=== PATIENT | male | born 1955 | race Two or more races ===

== ENCOUNTER 2021-06-16 06:26 | Outpatient (REF) | payer OTHER, SELFPAY ==
--- NOTE | 2021-06-16 06:43 | ECG_ITS ---
Test Reason : PRE OP Blood Pressure : / mmHG Vent. Rate : 057 BPM Atrial Rate : 057 BPM P-R Int : 158 ms QRS Dur : 070 ms QT Int : 434 ms P-R-T Axes : 076 043 046 degrees QTc Int : 422 ms Sinus bradycardia Otherwise normal ECG No previous ECGs available Referred By: Matthew Dang Electronically Signed By:DEMOND REGALADO
[2021-06-16 06:58] LABS: MANUAL DIFF FLAG NO
[2021-06-16 07:00] LABS: Basophils Absolute Auto 0.1 X10*3/uL (0.0-0.2); Basophils Percent Auto 0.9 % (0-2); Eosinophils Absolute Auto 1.4 X10*3/uL (0.0-0.4); Eosinophils Percent Auto 17.5 % (0-4); Hematocrit 40.6 % (42-52); Hemoglobin 13.3 g/dl (14.0-18.0); Imm Gran Abs Auto 0.03 X10*3/uL (0.00-0.03); Imm Gran Pct Auto 0.4 % (0.0-0.4); Lymphocytes Absolute Auto 2.1 X10*3/uL (1.2-4.9); Lymphocytes Percent Auto 27.3 % (20-40); Mean Corpuscular HGB Conc 32.8 g/dl (31.0-36.0); Mean Corpuscular Volume 94.6 fL (80-98); Mean Platelet Volume 8.9 fL (9.4-12.4); Monocytes Absolute Auto 0.5 X10*3/uL (0.1-1.2); Monocytes Percent Auto 6.1 % (2-11); Neutrophils Absolute Auto 3.8 X10*3/uL (2.0-8.3); Neutrophils Percent Auto 47.8 % (45-73); Platelet Count 231 X10*3/uL (160-400); Red Blood Count 4.29 X10*6/uL (4.60-5.80); Red Cell Distribution Width 14.8 % (11.0-16.0); White Blood Count 7.9 X10*3/uL (4.8-10.8)
[2021-06-16 07:30] LABS: Alanine Aminotransferase 13 U/L (0-40); Albumin Level 4.3 g/dL (3.5-5.0); Alkaline Phosphatase 89 U/L (39-117); Anion Gap 9 (12-20); Aspartate Amino Transferase 15 U/L (5-37); Bilirubin Total 0.5 mg/dL (0.0-1.0); Blood Urea Nitrogen 20 mg/dL (9-16); Calcium 9.7 mg/dL (8.4-10.2); Carbon Dioxide 30 mmol/L (22-29); Chloride 107 mmol/L (96-108); Cholesterol 107 mg/dL; Estimated Glomerular Filt Rate > 60; Glucose Random 136 mg/dL (60-115); HDL Cholesterol 33 mg/dL; LDL Cholesterol Calculated 65 mg/dl; Potassium 4.8 mmol/L (3.3-5.1); Sodium 141 mmol/L (135-145); Total Protein 6.8 g/dL (6.5-8.0); Triglycerides 49 mg/dL
[2021-06-16 07:35] LABS: Creatinine Urine 139.19 mg/dL; Microalbum/Creatinine Ratio Ur 4.3 ug/mg cr
[2021-06-16 07:47] LABS: Free T4 (Free Thyroxine) 0.89 ng/dL (0.71-1.85); Prostate Specific Antigen Scr 6.26 ng/mL (<0.05-4.0); Thyroid Stimulating Hormone 2.62 uIU/mL (0.32-4.0)
[2021-06-16 07:57] LABS: Folate 6.5 ng/mL (> or = 4.0); Vitamin B12 246 pg/mL (200-900)
== END 2021-06-16 06:27 | disposition home or self-care (01) ==
LOC: HO.LAB 06:26
PROVIDERS: PCP Internal Medicine; Visit Provider Internal Medicine
DX: Z01.818 Encounter for other preprocedural examination (principal); Z12.5 Encounter for screening for malignant neoplasm of prostate; E78.00 Pure hypercholesterolemia, unspecified; H11.009 Unspecified pterygium of unspecified eye; E11.65 Type 2 diabetes mellitus with hyperglycemia
CPT/HCPCS: 36415; 80053; 80061; 82043; 82607; 82746; 84153; 84439; 84443; 85025; 93005

== ENCOUNTER 2021-06-23 06:27 | Outpatient (REF) | payer OTHER, SELFPAY ==
[2021-06-23 08:43] LABS: Prostate Specific Antigen 6.02 ng/mL (<0.05-4.0)
[2021-06-23 09:07] LABS: Creatinine Urine 131.42 mg/dL
== END 2021-06-23 06:28 | disposition home or self-care (01) ==
LOC: HO.LAB 06:27
PROVIDERS: PCP Internal Medicine; Visit Provider Internal Medicine
DX: Z12.5 Encounter for screening for malignant neoplasm of prostate (principal); R97.20 Elevated prostate specific antigen [PSA]; E11.65 Type 2 diabetes mellitus with hyperglycemia
CPT/HCPCS: 36415; 84153

== ENCOUNTER 2021-06-26 08:20 | Day surgery (SDC) | payer OTHER, SELFPAY ==
[2021-06-21 11:36] VITALS: BMI 27.3
--- NOTE | 2021-06-22 07:52 | MHC.SHP ---
Pre-Procedural Eval Section A Date of Service: 06/22/21 The patient is an INPATIENT: No Changes since office visit: No Cold of Flu in the past 2 weeks, No New Medical Problems, No Changes in Medication and No Patient answered all questions The History & Physical has been completed within 30 days and I have reviewed it.: Yes Section B Chief Complaint: Unspecified Pterygium of right Eye Allergies: Allergies Allergy/AdvReac Type Severity Reaction Status Date / Time atorvastatin Allergy Unknown Unknown Verified 06/21/21 11:20 pencillin Allergy Unknown Unknown Uncoded 06/21/21 11:20 Plan Diagnosis/Plan: Unchanged I have reviewed the history and physical and performed a pertinent physical examination on my patient. No changes have occurred unless specified.
--- NOTE | 2021-06-23 09:27 | HO.ANESPROP2 ---
Documented by User: Anne Marie Mehta NP 06/23/21 09:29 HPI - Anesthesia Eval Consult details Narrative: 65yo M for Right Pteryguim Resection with Graft PCP cleared PMFSH Active Problems Active Problems: All Active Problems (Updated 06/16/21 @ 08:26 by Matthew Dang MD) Dental abscess (Acute) Preop exam for internal medicine (Acute) Pterygium (Acute) Abnormal PSA (Acute) Hypercholesterolemia (Acute) COPD (chronic obstructive pulmonary disease) (Acute) Type 2 diabetes mellitus with hyperglycemia (Acute) Hypertension (Acute) Past Medical History Medical History COPD (chronic obstructive pulmonary disease) Hypercholesterolemia Hypertension Plantar fasciitis Type 2 diabetes mellitus with hyperglycemia Vitamin D deficiency Family History Family History Sister Breast cancer in situ Brother Alcohol abuse Father Alcohol abuse Surgical History Surgical History History of hand surgery Social History Social History Housing: House Alcohol intake: never Patient Tobacco Use Status: Former Tobacco user Quit Date: 2017 Tobacco use type: Cigarette Years Smoked: stopped 2017 e-Cigarette/Vaping Use: Never Used Second Hand Smoke Exposure: No Are you DNR?: No Advance Directives: No Advance Directives Information Provided: No Advance Directives on File: No service: No Current occupational status: employed Meds Allergies Allergy/AdvReac Type Severity Reaction Status Date / Time atorvastatin Allergy Unknown Unknown Verified 06/26/21 09:30 pencillin Allergy Unknown Unknown Uncoded 06/21/21 11:20 Exam Exam Date and Time: June 23, 2021 0927 Height,Weight and Vital Signs: Height 5 ft Weight 63.503 kg Pertinent Lab Results Pertinent Lab Results: Laboratory Tests 06/16/21 06/16/21 06:35 06:35 WBC 7.9 Hgb 13.3 L Hct 40.6 L Plt Count 231 Sodium 141 Potassium 4.8 Chloride 107 Carbon Dioxide 30 H BUN 20 H Creatinine 1.11 Narrative Narrative: EKG 06/2021 Vent. Rate : 057 BPM ? ? Atrial Rate : 057 BPM ?? P-R Int : 158 ms? QRS Dur : 070 ms ? ? QT Int : 434 ms ? ? ? P-R-T Axes : 076 043 046 degrees ?? QTc Int : 422 ms ? Sinus bradycardia Otherwise normal ECG No previous ECGs available Assessment and Plan Assessment Anesthesia Assessment: Chart Reviewed Documented by User: Kaley Pace MD 06/26/21 10:35 PMFSH Past Medical History Medical History COPD (chronic obstructive pulmonary disease) Hypercholesterolemia Hypertension Plantar fasciitis Type 2 diabetes mellitus with hyperglycemia Vitamin D deficiency Family History Family History Sister Breast cancer in situ Brother Alcohol abuse Father Alcohol abuse Surgical History Surgical History History of hand surgery History of Problems with Anesthesia: No Social History Social History Housing: House Alcohol intake: never Patient Tobacco Use Status: Former Tobacco user Quit Date: 2017 Tobacco use type: Cigarette Years Smoked: stopped 2017 e-Cigarette/Vaping Use: Never Used Second Hand Smoke Exposure: No Are you DNR?: No Advance Directives: No Advance Directives Information Provided: No Advance Directives on File: No service: No Current occupational status: employed Meds Allergies Allergy/AdvReac Type Severity Reaction Status Date / Time atorvastatin Allergy Unknown Unknown Verified 06/26/21 09:30 pencillin Allergy Unknown Unknown Uncoded 06/21/21 11:20 Exam Airway Mallampati Class: III TM Dist: >3cm Neck ROM: Full Heart: RRR Lungs: CTA Assessment and Plan Assessment Anesthesia Assessment: Anesthesia Plan Discussed Final Anesthetic Review History of Problems with Anesthesia: No NPO: Yes ASA Class: II Final Preanesthetic Review: Meds/Allgs Chart Reviewed, Consent Obtained/Reviewed and Anes Risks/Benef Reviewed Patient Risk: Low Procedure Risk: Low Anesthetic Plan Anesthetic Plan: MAC: Disposition: Standard PACU
[2021-06-26 09:31] VITALS: BP 135/60; PULSE 47; RESP 16; TEMP 36.3; O2SAT 98
[2021-06-26 09:42] LABS: Glucose, Whole Blood 116 mg/dL (60-115)
[2021-06-26] MEDS: Lactated Ringers 500 ML 50 ML IV (09:53)
--- NOTE | 2021-06-26 10:45 | HO.PNOPHT ---
Ophthalmology Procedure Procedure Date of Service: 06/26/21 Ophthalmology Viscoelastic: Not Applicable Ophthalmology Lenses: Not Applicable Procedure Notes: PREOPERATIVE DIAGNOSIS: Pterygium right eye POSTOPERATIVE DIAGNOSIS: Same PROCEDURE: Pterygium resection with conjunctival graft right eye SURGEON: Favian Pruitt M.D. ANESTHESIA: Topical/MAC ESTIMATED BLOOD LOSS: None COMPLICATIONS: None After obtaining informed consent, the patient was brought to the operating room suite and placed in supine position. After adequate sedation per Anesthesia, topical drops of Tetracaine were given to the right eye. The eye was then prepped and draped in the usual sterile fashion. Attention was directed to the right eye where the lid speculum was placed. Tetracaine was instilled topically, followed by subconjunctival injections of Lidocaine below the pterygium and below the superior conjunctiva where the graft was to be harvested from. Utilizing a combination of sharp and blunt dissection with Darren scissors, the pterygium was resected from the cornea, as well as the bulbar conjunctiva. A graft was then harvested from the superior site and placed in the conjunctival bed. It was sutured in place with 7-0 Vicryl sutures in a running fashion. Attention was directed superiorly where the graft harvest site was closed with additional 7-0 Vicryl interrupted sutures. Antibiotic ointment was instilled in the cul de sac. The lid speculum was removed. The patient tolerated the procedure well and will be followed.
[2021-06-26 12:01] VITALS: BP 136/70; PULSE 48; RESP 17; TEMP 36.3; O2SAT 99
[2021-06-26 12:15] VITALS: BP 150/62; PULSE 51; RESP 16; TEMP 36.3; O2SAT 99
== END 2021-06-26 13:08 | disposition home or self-care (01) ==
PROVIDERS: PCP Internal Medicine; Visit Provider Ophthalmology
PROC: (CPT 65420; principal; 2021-06-26 11:20)
DX: H11.001 Unspecified pterygium of right eye (principal); E11.9 Type 2 diabetes mellitus without complications; I10 Essential (primary) hypertension; J44.9 Chronic obstructive pulmonary disease, unspecified; Z79.82 Long term (current) use of aspirin; Z79.84 Long term (current) use of oral hypoglycemic drugs; Z79.899 Other long term (current) drug therapy
CPT/HCPCS: 65426; 82947; 88304; J2250; J3010

== ENCOUNTER 2022-03-06 14:53 | Outpatient (REF) | payer OTHER, SELFPAY ==
[2022-03-06 15:35] LABS: COVID-19 Test Negative (Negative)
== END 2022-03-06 14:54 | disposition home or self-care (01) ==
LOC: HO.LAB 14:53
PROVIDERS: Visit Provider Internal Medicine
DX: Z20.822 Contact with and (suspected) exposure to COVID-19 (principal)
CPT/HCPCS: 87635; C9803

== ENCOUNTER 2022-05-29 06:37 | Outpatient (REF) | payer MEDICARE, SELFPAY ==
[2022-05-29 06:53] LABS: MANUAL DIFF FLAG NO
[2022-05-29 07:28] LABS: Basophils Percent Auto 0.8 % (0-2); Eosinophils Absolute Auto 0.9 X10*3/uL (0.0-0.4); Eosinophils Percent Auto 16.4 % (0-4); Hematocrit 39.4 % (42.0-52.0); Hemoglobin 12.8 g/dl (14.0-18.0); Imm Gran Abs Auto 0.01 X10*3/uL (0.00-0.03); Imm Gran Pct Auto 0.2 % (0.0-0.4); Lymphocytes Absolute Auto 1.2 X10*3/uL (1.2-4.9); Lymphocytes Percent Auto 22.3 % (20-40); Mean Corpuscular HGB Conc 32.5 g/dl (31.0-36.0); Mean Corpuscular Hemoglobin 30.5 pg (27.0-33.0); Mean Platelet Volume 8.7 fL (9.4-12.4); Monocytes Absolute Auto 0.4 X10*3/uL (0.1-1.2); Monocytes Percent Auto 8.1 % (2-11); Neutrophils Absolute Auto 2.8 x10*3/uL (2.0-8.3); Neutrophils Percent Auto 52.2 % (45-73); Platelet Count 283 X10*3/uL (160-400); Red Blood Count 4.19 X10*6/uL (4.60-5.80); Red Cell Distribution Width 13.6 % (11.0-16.0); White Blood Count 5.3 X10*3/uL (4.8-10.8)
[2022-05-29 08:00] LABS: Estimated Average Glucose 166 mg/dL; Hemoglobin A1c % 7.4 %
[2022-05-29 08:04] LABS: Alanine Aminotransferase 19 U/L (0-40); Albumin Level 4.4 g/dL (3.5-5.0); Alkaline Phosphatase 86 U/L (39-117); Anion Gap 15 (12-20); Aspartate Amino Transferase 16 U/L (5-37); Bilirubin Total 0.3 mg/dL (0.0-1.0); Blood Urea Nitrogen 16 mg/dL (9-16); Calcium 9.9 mg/dL (8.4-10.2); Carbon Dioxide 28 mmol/L (22-29); Chloride 104 mmol/L (96-108); Cholesterol 131 mg/dL; Estimated Glomerular Filt Rate > 60; Glucose Random 145 mg/dL (60-115); HDL Cholesterol 39 mg/dL; LDL Cholesterol Calculated 78 mg/dl; Potassium 4.5 mmol/L (3.3-5.1); Sodium 142 mmol/L (135-145); Total Protein 6.9 g/dL (6.5-8.0); Triglycerides 73 mg/dL
[2022-05-29 08:05] LABS: Microalbum/Creatinine Ratio Ur 8.6 ug/mg cr
[2022-05-29 08:44] LABS: Free T4 (Free Thyroxine) 1.02 ng/dL (0.71-1.85); PSA,Total (Free>4and<10) < 0.05 ng/mL (0.00-4.00); Thyroid Stimulating Hormone 3.93 uIU/mL (0.32-4.0)
[2022-05-29 09:17] LABS: Folate 10.4 ng/mL (> or = 4.0); Vitamin B12 290 pg/mL (200-900)
== END 2022-05-29 06:38 | disposition home or self-care (01) ==
LOC: HO.LAB 06:37
PROVIDERS: PCP Internal Medicine; Visit Provider Internal Medicine
DX: E11.65 Type 2 diabetes mellitus with hyperglycemia (principal); I10 Essential (primary) hypertension; C61 Malignant neoplasm of prostate; E78.00 Pure hypercholesterolemia, unspecified
CPT/HCPCS: 36415; 80053; 80061; 82043; 82607; 82746; 83036; 84153; 84439; 84443; 85025

== ENCOUNTER 2022-06-28 12:09 | Outpatient (REF) | payer MEDICARE, SELFPAY ==
[2022-06-28 13:17] LABS: COVID-19 Test Positive (Negative); IDNOW Serial# 08D9AD1C
== END 2022-06-28 12:10 | disposition home or self-care (01) ==
LOC: HO.LAB 12:09
PROVIDERS: Visit Provider Internal Medicine
DX: Z20.822 Contact with and (suspected) exposure to COVID-19 (principal)
CPT/HCPCS: 87635; C9803

== ENCOUNTER 2022-08-23 08:01 | Outpatient (REF) | payer MEDICARE, SELFPAY ==
--- NOTE | 2022-08-23 08:07 | ECG_ITS ---
Test Reason : preproc exam Blood Pressure : / mmHG Vent. Rate : 057 BPM Atrial Rate : 057 BPM P-R Int : 152 ms QRS Dur : 068 ms QT Int : 436 ms P-R-T Axes : 076 042 049 degrees QTc Int : 424 ms Sinus bradycardia Otherwise normal ECG When compared with ECG of 16-JUN-2021 06:54, No significant change was found Referred By: Matthew Dang Electronically Signed By:KAT JAUREGUI MD
[2022-08-23 08:22] LABS: MANUAL DIFF FLAG NO
[2022-08-23 08:42] LABS: Basophils Percent Auto 0.6 % (0-2); Eosinophils Absolute Auto 0.7 X10*3/uL (0.0-0.4); Eosinophils Percent Auto 12.7 % (0-4); Hematocrit 38.1 % (42.0-52.0); Hemoglobin 12.4 g/dl (14.0-18.0); Immature Retic Fraction 11.8 % (2.3-13.4); Lymphocytes Absolute Auto 1.1 X10*3/uL (1.2-4.9); Mean Corpuscular HGB Conc 32.5 g/dl (31.0-36.0); Mean Corpuscular Hemoglobin 30.3 pg (27.0-33.0); Mean Corpuscular Volume 93.2 fL (80.0-98.0); Mean Platelet Volume 8.8 fL (9.4-12.4); Monocytes Absolute Auto 0.6 X10*3/uL (0.1-1.2); Monocytes Percent Auto 10.6 % (2-11); Neutrophils Percent Auto 56.1 % (45-73); Platelet Count 270 X10*3/uL (160-400); Red Blood Count 4.09 X10*6/uL (4.60-5.80); Red Cell Distribution Width 13.2 % (11.0-16.0); Retic HGB Equivalent 35.4 pg (30.0-35.0); Reticulocyte Percent 1.7 % (0.5-1.8); White Blood Count 5.3 X10*3/uL (4.8-10.8)
[2022-08-23 09:21] LABS: Creatinine Urine 52.42 mg/dL
[2022-08-23 09:28] LABS: Estimated Average Glucose 206 mg/dL; Hemoglobin A1c % 8.8 %
[2022-08-23 09:33] LABS: Alanine Aminotransferase 17 U/L (0-40); Albumin Level 4.3 g/dL (3.5-5.0); Alkaline Phosphatase 91 U/L (39-117); Anion Gap 14 (12-20); Aspartate Amino Transferase 14 U/L (5-37); Bilirubin Total 0.3 mg/dL (0.0-1.0); Blood Urea Nitrogen 17 mg/dL (9-16); Calcium 9.6 mg/dL (8.4-10.2); Carbon Dioxide 28 mmol/L (22-29); Chloride 102 mmol/L (96-108); Estimated Glomerular Filt Rate > 60; Ferritin 252 ng/mL (20-250); Glucose Random 189 mg/dL (60-115); Iron 84 mcg/dL (45-160); Percent Iron Saturation 34 % (15-50); Potassium 4.9 mmol/L (3.3-5.1); Sodium 139 mmol/L (135-145); Total Iron Binding Capacity 249 mcg/dL (228-428); Total Protein 6.9 g/dL (6.5-8.0); Unsaturated Iron Binding 165 ug/dL
[2022-08-23 09:42] LABS: Folate 10.8 ng/mL (> or = 4.0); Vitamin B12 369 pg/mL (200-900)
== END 2022-08-23 08:02 | disposition home or self-care (01) ==
LOC: HO.LAB 08:01
PROVIDERS: PCP Internal Medicine; Visit Provider Internal Medicine
DX: Z01.818 Encounter for other preprocedural examination (principal); E11.65 Type 2 diabetes mellitus with hyperglycemia
CPT/HCPCS: 36415; 80053; 82607; 82728; 82746; 83036; 83540; 85025; 85045; 93005

== ENCOUNTER 2022-09-03 07:04 | Day surgery (SDC) | payer MEDICARE, SELFPAY ==
[2022-08-24 10:38] VITALS: BMI 26.9
--- NOTE | 2022-08-28 13:13 | HO.ANESPROP2 ---
Documented by User: Anne Marie Mehta NP 08/28/22 13:14 HPI - Anesthesia Eval Consult details Narrative: 66yo M for Right Cataract Extraction IOL Insertion PCP cleared No previous cataract on record s/p pterygium 06/2021 with MAC: Fent 50, Midaz 2 PMFSH Active Problems Active Problems: All Active Problems (Updated 08/22/22 @ 14:48 by Matthew Dang MD) Cataract (Acute) Preop exam for internal medicine (Acute) COVID-19 virus infection (Acute) Rectal incontinence (Acute) Prostate cancer (Acute) Dental abscess (Acute) Preop exam for internal medicine (Acute) Abnormal PSA (Acute) Hypercholesterolemia (Acute) COPD (chronic obstructive pulmonary disease) (Acute) Type 2 diabetes mellitus with hyperglycemia (Acute) Hypertension (Acute) Past Medical History Medical History COPD (chronic obstructive pulmonary disease) Hypercholesterolemia Hypertension Plantar fasciitis Type 2 diabetes mellitus with hyperglycemia Vitamin D deficiency Family History Family History (Updated 08/22/22 @ 14:49 by Matthew Dang MD) Sister Breast cancer in situ Brother Alcohol abuse Prostate cancer CAD (coronary artery disease) Father Alcohol abuse Mother CAD (coronary artery disease) Surgical History Surgical History History of hand surgery Pterygium History of Problems with Anesthesia: No Social History Social History Housing: House Are you a primary assurance services manager health care to a significant other at home: No Do you presently have visiting nurse or other home services: No Alcohol intake: never Patient Tobacco Use Status: Former Tobacco user Quit Date: 2017 Tobacco use type: Cigarette Years Smoked: stopped 2017 e-Cigarette/Vaping Use: Never Used Second Hand Smoke Exposure: No Use of substances other than those prescribed or required for medical reasons: No Have you been hit, kicked, punched, or otherwise hurt by someone within the past year? If so, by whom?: No Are you DNR?: No Advance Directives: No Advance Directives Information Provided: Yes Advance Directives on File: No Recently lost weight without trying: No Nutrition Risks: No Nutritional Risk service: No Current occupational status: employed Cognitive needs: No Hearing needs: No Vision needs: Yes Meds Allergies Allergy/AdvReac Type Severity Reaction Status Date / Time atorvastatin Allergy Unknown Rash Verified 08/27/22 14:11 pencillin Allergy Unknown Rash Uncoded 08/24/22 10:38 Exam Exam Date and Time: August 28, 2022 1313 Height,Weight and Vital Signs: Height 5 ft Weight 62.596 kg Assessment and Plan Assessment Anesthesia Assessment: Chart Reviewed Final Anesthetic Review History of Problems with Anesthesia: No Documented by User: Paige Bonilla MD 09/03/22 09:54 [facility] Past Medical History Medical History COPD (chronic obstructive pulmonary disease) Hypercholesterolemia Hypertension Plantar fasciitis Type 2 diabetes mellitus with hyperglycemia Vitamin D deficiency Family History Family History (Updated 08/22/22 @ 14:49 by Matthew Dang MD) Sister Breast cancer in situ Brother Alcohol abuse Prostate cancer CAD (coronary artery disease) Father Alcohol abuse Mother CAD (coronary artery disease) Family history of problems with anesthesia: No Surgical History Surgical History History of hand surgery Pterygium Social History Social History Housing: House Are you a primary assurance services manager health care to a significant other at home: No Do you presently have visiting nurse or other home services: No Alcohol intake: never Patient Tobacco Use Status: Former Tobacco user Quit Date: 2017 Tobacco use type: Cigarette Years Smoked: stopped 2017 e-Cigarette/Vaping Use: Never Used Second Hand Smoke Exposure: No Use of substances other than those prescribed or required for medical reasons: No Have you been hit, kicked, punched, or otherwise hurt by someone within the past year? If so, by whom?: No Are you DNR?: No Advance Directives: No Advance Directives Information Provided: Yes Advance Directives on File: No Recently lost weight without trying: No Nutrition Risks: No Nutritional Risk service: No Current occupational status: employed Cognitive needs: No Hearing needs: No Vision needs: Yes Meds Allergies Allergy/AdvReac Type Severity Reaction Status Date / Time atorvastatin Allergy Unknown Rash Verified 08/27/22 14:11 pencillin Allergy Unknown Rash Uncoded 08/24/22 10:38 Exam Narrative Narrative: could not stick out tongue Airway Mallampati Class: II TM Dist: >3cm Neck ROM: Full Heart: rrr Lungs: cta bl Assessment and Plan Assessment Anesthesia Assessment: Anesthesia Plan Discussed Final Anesthetic Review Family History of Problems with Anesthesia: No NPO: No ASA Class: II Final Preanesthetic Review: No Changes in Pt Med Stat, Meds/Allgs Chart Reviewed and Consent Obtained/Reviewed Patient Risk: Intermediate Procedure Risk: Low Anesthetic Plan Anesthetic Plan: MAC: Disposition: Standard PACU
--- NOTE | 2022-08-29 08:25 | MHC.SHP ---
Pre-Procedural Eval Section A Date of Service: 08/29/22 The patient is an INPATIENT: No Changes since office visit: No Cold of Flu in the past 2 weeks, No New Medical Problems, No Changes in Medication and No Patient answered all questions The History & Physical has been completed within 30 days and I have reviewed it.: Yes Section B Chief Complaint: Age-related nuclear cataract, right eye Allergies: Allergies Allergy/AdvReac Type Severity Reaction Status Date / Time atorvastatin Allergy Unknown Rash Verified 08/27/22 14:11 pencillin Allergy Unknown Rash Uncoded 08/24/22 10:38 Plan Diagnosis/Plan: Unchanged I have reviewed the history and physical and performed a pertinent physical examination on my patient. No changes have occurred unless specified.
[2022-09-03 07:59] VITALS: BP 124/51; PULSE 66; RESP 18; TEMP 36.1; O2SAT 97
[2022-09-03 08:04] LABS: Glucose, Whole Blood 207 mg/dL (60-115)
[2022-09-03] MEDS: Lactated Ringers 500 ML 50 ML IV (08:05)
[2022-09-03] MEDS: Cyclopentolate 1 % Ophth Sol 2 ML DRPBTL 1 DROP EYE-RIGHT ×3 (08:06→08:08)
[2022-09-03] MEDS: Tetracaine HCl/PF 0.5% Oph Sol 4 ML DROPS 1 DROP EYE-RIGHT (08:06)
[2022-09-03] MEDS: Ketorolac Tromethamine 0.5% Op 5 ML DROPS 1 DROP EYE-RIGHT ×3 (08:06→08:08)
[2022-09-03] MEDS: Tropicamide 1 % Ophth Sol 3 ML BTL 1 DROP EYE-RIGHT ×3 (08:06→08:08)
[2022-09-03] MEDS: Phenylephrine HCL 2.5% Oph SoL 2 ML BOTTLE 1 DROP EYE-RIGHT ×3 (08:07→08:09)
--- NOTE | 2022-09-03 11:37 | HO.PNOPHT ---
Ophthalmology Procedure Procedure Date of Service: 09/03/22 Ophthalmology Viscoelastic: Mariluz Hobbst Dual Pack Pro Ophthalmology Lenses: TECOR[place]O [id number] (22) Procedure Notes: PREOPERATIVE DIAGNOSIS: Decreased visual acuity right eye secondary to cataract POSTOPERATIVE DIAGNOSIS: Same PROCEDURE: Right cataract extraction with intraocular lens insertion SURGEON: Favian Pruitt M.D. ANESTHESIA: Topical/MAC ESTIMATED BLOOD LOSS: None COMPLICATIONS: None After obtaining informed consent, the patient was brought to the operating room suite and placed in the supine position. After adequate sedation per anesthesia, topical drops of Tetracaine were given to the right eye. The eye was then prepped and draped in the usual sterile fashion. The operating room microscope was then positioned over the operative eye and a lid speculum placed. A paracentesis was created. Viscoelastic was then instilled into the anterior chamber. A three plane incision was then created temporally, utilizing a 2.85 mm keratome. Capsulotomy forceps were then utilized to create a circular tear capsulotomy. Hydrodissection and hydrodelineation were carried out until adequate mobilization of the nucleus occurred. Phacoemulsification was then utilized to remove the dense central nucleus followed by removal of the cortical material utilizing the automated aspiration irrigation unit. Viscoelastic was instilled into the posterior capsular bag followed by placement of a posterior chamber intraocular lens without difficulty. The residual Viscoelastic was then removed utilizing the automated IA machine. The wound was checked and found to be watertight. The patient tolerated the procedure well and the lid speculum was removed. Intracameral injection of Vigamox 0.1 mL followed by a subtenon injection of Kenalog-40 0.2 mL were administered. The patient will be seen in the a.m.
[2022-09-03 12:06] VITALS: BP 133/56; PULSE 61; RESP 16; TEMP 36.8; O2SAT 99
== END 2022-09-03 12:08 ==
LOC: HO.SSS 07:05
PROVIDERS: PCP Internal Medicine; Visit Provider Ophthalmology
PROC: (CPT 66985; principal; 2022-09-03 09:20)
DX: H25.11 Age-related nuclear cataract, right eye (principal); E11.9 Type 2 diabetes mellitus without complications; I10 Essential (primary) hypertension; J44.9 Chronic obstructive pulmonary disease, unspecified; Z79.84 Long term (current) use of oral hypoglycemic drugs; Z79.899 Other long term (current) drug therapy; Z88.0 Allergy status to penicillin; Z88.8 Allergy status to other drugs, medicaments and biological substances
CPT/HCPCS: 66984; 82947; J2250; J3300; J7999; V2632

== ENCOUNTER 2022-09-17 07:04 | Day surgery (SDC) | payer MEDICARE, SELFPAY ==
[2022-08-24 10:43] VITALS: BMI 26.9
--- NOTE | 2022-09-13 08:39 | MHC.SHP ---
Pre-Procedural Eval Section A Date of Service: 09/13/22 The patient is an INPATIENT: No Changes since office visit: No Cold of Flu in the past 2 weeks, No New Medical Problems, No Changes in Medication and No Patient answered all questions The History & Physical has been completed within 30 days and I have reviewed it.: Yes Section B Chief Complaint: Age-related nuclear cataract, left eye Allergies: Allergies Allergy/AdvReac Type Severity Reaction Status Date / Time atorvastatin Allergy Unknown Rash Verified 08/27/22 14:11 pencillin Allergy Unknown Rash Uncoded 08/24/22 10:38 Plan Diagnosis/Plan: Unchanged I have reviewed the history and physical and performed a pertinent physical examination on my patient. No changes have occurred unless specified.
--- NOTE | 2022-09-14 09:08 | HO.ANESPROP2 ---
Documented by User: Anne Marie Mehta NP 09/14/22 09:09 HPI - Anesthesia Eval Consult details Narrative: 66yo M for Left?Cataract Extraction IOL Insertion PCP cleared Right eye 09/03/22 with MAC: Midaz 1 PMFSH Active Problems Active Problems: All Active Problems (Updated 08/22/22 @ 14:48 by Matthew Dang MD) Cataract (Acute) Preop exam for internal medicine (Acute) COVID-19 virus infection (Acute) Rectal incontinence (Acute) Prostate cancer (Acute) Dental abscess (Acute) Preop exam for internal medicine (Acute) Abnormal PSA (Acute) Hypercholesterolemia (Acute) COPD (chronic obstructive pulmonary disease) (Acute) Type 2 diabetes mellitus with hyperglycemia (Acute) Hypertension (Acute) Past Medical History Medical History COPD (chronic obstructive pulmonary disease) Hypercholesterolemia Hypertension Plantar fasciitis Type 2 diabetes mellitus with hyperglycemia Vitamin D deficiency Family History Family History (Updated 08/22/22 @ 14:49 by Matthew Dang MD) Sister Breast cancer in situ Brother Alcohol abuse Prostate cancer CAD (coronary artery disease) Father Alcohol abuse Mother CAD (coronary artery disease) Family history of problems with anesthesia: No Surgical History Surgical History History of hand surgery Pterygium History of Problems with Anesthesia: No Social History Social History Housing: House Are you a primary respite care provider to a significant other at home: No Do you presently have visiting nurse or other home services: No Alcohol intake: never Patient Tobacco Use Status: Former Tobacco user Quit Date: 2017 Tobacco use type: Cigarette Years Smoked: stopped 2017 e-Cigarette/Vaping Use: Never Used Second Hand Smoke Exposure: No Use of substances other than those prescribed or required for medical reasons: No Have you been hit, kicked, punched, or otherwise hurt by someone within the past year? If so, by whom?: No Are you DNR?: No Advance Directives: No Advance Directives Information Provided: Yes Advance Directives on File: No Recently lost weight without trying: No Nutrition Risks: No Nutritional Risk service: No Current occupational status: employed Cognitive needs: No Hearing needs: No Vision needs: Yes Meds Allergies Allergy/AdvReac Type Severity Reaction Status Date / Time atorvastatin Allergy Unknown Rash Verified 08/27/22 14:11 pencillin Allergy Unknown Rash Uncoded 08/24/22 10:38 Exam Exam Date and Time: September 14, 2022 0908 Height,Weight and Vital Signs: Height 5 ft Weight 62.596 kg Assessment and Plan Assessment Anesthesia Assessment: Chart Reviewed Final Anesthetic Review Family History of Problems with Anesthesia: No History of Problems with Anesthesia: No Documented by User: Paige Bonilla MD 09/17/22 08:20 [facility] Past Medical History Medical History COPD (chronic obstructive pulmonary disease) Hypercholesterolemia Hypertension Plantar fasciitis Type 2 diabetes mellitus with hyperglycemia Vitamin D deficiency Family History Family History (Updated 08/22/22 @ 14:49 by Matthew Dang MD) Sister Breast cancer in situ Brother Alcohol abuse Prostate cancer CAD (coronary artery disease) Father Alcohol abuse Mother CAD (coronary artery disease) Surgical History Surgical History History of hand surgery Pterygium Social History Social History Housing: House Are you a primary respite care provider to a significant other at home: No Do you presently have visiting nurse or other home services: No Alcohol intake: never Patient Tobacco Use Status: Former Tobacco user Quit Date: 2017 Tobacco use type: Cigarette Years Smoked: stopped 2017 e-Cigarette/Vaping Use: Never Used Second Hand Smoke Exposure: No Use of substances other than those prescribed or required for medical reasons: No Have you been hit, kicked, punched, or otherwise hurt by someone within the past year? If so, by whom?: No Are you DNR?: No Advance Directives: No Advance Directives Information Provided: Yes Advance Directives on File: No Recently lost weight without trying: No Nutrition Risks: No Nutritional Risk [facility] service: No Current occupational status: employed Cognitive needs: No Hearing needs: No Vision needs: Yes Meds Allergies Allergy/AdvReac Type Severity Reaction Status Date / Time atorvastatin Allergy Unknown Rash Verified 08/27/22 14:11 pencillin Allergy Unknown Rash Uncoded 08/24/22 10:38 Exam Airway Mallampati Class: II TM Dist: >3cm Neck ROM: Full Heart: rrr Lungs: cta Assessment and Plan Assessment Anesthesia Assessment: Anesthesia Plan Discussed Final Anesthetic Review NPO: Yes ASA Class: III Final Preanesthetic Review: No Changes in Pt Med Stat, Meds/Allgs Chart Reviewed and Consent Obtained/Reviewed Patient Risk: Intermediate Procedure Risk: Intermediate Anesthetic Plan Anesthetic Plan: MAC: Disposition: Standard PACU
[2022-09-17 08:05] VITALS: BP 115/48; PULSE 61; RESP 16; TEMP 36.1; O2SAT 98
[2022-09-17] MEDS: Tetracaine HCl/PF 0.5% Oph Sol 4 ML DROPS 1 DROP EYE-LEFT (08:10)
[2022-09-17] MEDS: Cyclopentolate 1 % Ophth Sol 2 ML DRPBTL 1 DROP EYE-LEFT ×3 (08:11→08:27)
[2022-09-17 08:12] LABS: Glucose, Whole Blood 177 mg/dL (60-115)
[2022-09-17] MEDS: Tropicamide 1 % Ophth Sol 3 ML BTL 1 DROP EYE-LEFT ×3 (08:16→08:29)
[2022-09-17] MEDS: Ketorolac Tromethamine 0.5% Op 5 ML DROPS 1 DROP EYE-LEFT ×3 (08:19→08:31)
[2022-09-17] MEDS: Lactated Ringers 500 ML 50 ML IV (08:19)
[2022-09-17] MEDS: Phenylephrine HCL 2.5% Oph SoL 2 ML BOTTLE 1 DROP EYE-LEFT ×3 (08:20→08:33)
--- NOTE | 2022-09-17 10:07 | HO.PNOPHT ---
Ophthalmology Procedure Procedure Date of Service: 09/17/22 Ophthalmology Viscoelastic: Healon Duet Dual Pack Pro Ophthalmology Lenses: TECNIS [id number] (21.5) Procedure Notes: PREOPERATIVE DIAGNOSIS: Decreased visual acuity left eye secondary to cataract POSTOPERATIVE DIAGNOSIS: Same PROCEDURE: Left cataract extraction with intraocular lens insertion SURGEON: Favian Pruitt M.D. ANESTHESIA: Topical/MAC ESTIMATED BLOOD LOSS: None COMPLICATIONS: None After obtaining informed consent, the patient was brought to the operation room suite and placed in the supine position. After adequate sedation per anesthesia, topical drops of Tetracaine were given to the left eye. The eye was then prepped and draped in the usual sterile fashion. The operating room microscope was then positioned over the operative eye and a lid speculum placed. A paracentesis was created. Viscoelastic was then instilled into the anterior chamber. A three plane incision was then created temporally, utilizing a 2.85 mm keratome. Capsulotomy forceps were then utilized to create a circular tear capsulotomy. Hydrodissection and hydrodelineation were carried out until adequate mobilization of the nucleus occurred. Phacoemulsification was then utilized to remove the dense central nucleus followed by removal of the cortical material utilizing the automated aspiration irrigation unit. Viscoat elastic was instilled into the posterior capsular bag followed by placement of a posterior chamber intraocular lens without difficulty. The residual Viscoat elastic was then removed utilizing the automated IA machine. The wound was check and found to be watertight. The patient tolerated the procedure well and the lid speculum was removed. Intracameral injection of Vigamox 0.1 mL followed by a subtenon injection of Kenalog-40 0.2 mL were administered. The patient will be seen in the a.m.
[2022-09-17 10:28] VITALS: BP 125/59; PULSE 57; RESP 10; TEMP 36.4; O2SAT 100
== END 2022-09-17 10:38 | disposition home or self-care (01) ==
PROVIDERS: PCP Internal Medicine; Visit Provider Ophthalmology
PROC: (CPT 66985; principal; 2022-09-17 09:50)
DX: H25.12 Age-related nuclear cataract, left eye (principal); E11.9 Type 2 diabetes mellitus without complications; I10 Essential (primary) hypertension; J44.9 Chronic obstructive pulmonary disease, unspecified; Z79.84 Long term (current) use of oral hypoglycemic drugs; Z79.899 Other long term (current) drug therapy; Z88.0 Allergy status to penicillin; Z88.8 Allergy status to other drugs, medicaments and biological substances
CPT/HCPCS: 66984; 82947; J2250; J3010; J3301; J7999; V2632

== ENCOUNTER → 2022-09-21 12:14 | Outpatient (BNVA) | payer MEDICARE, SELFPAY | PROVIDERS: PCP Internal Medicine; Visit Provider Internal Medicine Endocrinology, Diabetes & Metabolism | DX: E11.65 Type 2 diabetes mellitus with hyperglycemia (principal); Z79.4 Long term (current) use of insulin | CPT/HCPCS: 82947; 99202 ==

== ENCOUNTER → 2022-09-24 10:54 | Outpatient (BNVA) | payer MEDICARE, SELFPAY | PROVIDERS: PCP Internal Medicine; Visit Provider Dietitian, Registered | DX: E11.65 Type 2 diabetes mellitus with hyperglycemia (principal) | CPT/HCPCS: 97802 ==

== ENCOUNTER → 2022-10-23 08:54 | Outpatient (BNVA) | payer MEDICARE, SELFPAY | PROVIDERS: PCP Internal Medicine; Visit Provider Registered Nurse Diabetes Educator | DX: E11.65 Type 2 diabetes mellitus with hyperglycemia (principal) | CPT/HCPCS: 99211 ==

== ENCOUNTER → 2022-11-16 10:16 | Outpatient (BNVA) | payer MEDICARE, SELFPAY | PROVIDERS: PCP Internal Medicine; Visit Provider Dietitian, Registered | DX: E11.65 Type 2 diabetes mellitus with hyperglycemia (principal); Z87.891 Personal history of nicotine dependence; Z71.3 Dietary counseling and surveillance | CPT/HCPCS: 97803 ==

== ENCOUNTER → 2022-12-20 13:49 | Outpatient (BNVA) | payer MEDICARE, SELFPAY | PROVIDERS: PCP Internal Medicine; Visit Provider Internal Medicine Endocrinology, Diabetes & Metabolism | DX: E11.65 Type 2 diabetes mellitus with hyperglycemia (principal); Z79.4 Long term (current) use of insulin | CPT/HCPCS: 82947; 99212 ==

== ENCOUNTER → 2023-02-20 08:54 | Outpatient (BNVA) | payer MEDICARE, SELFPAY | PROVIDERS: PCP Internal Medicine; Visit Provider Registered Nurse Diabetes Educator | DX: E11.65 Type 2 diabetes mellitus with hyperglycemia (principal) | CPT/HCPCS: 99211 ==

== ENCOUNTER → 2023-02-21 12:21 | Outpatient (BNVA) | payer MEDICARE, SELFPAY | PROVIDERS: PCP Internal Medicine; Visit Provider Dietitian, Registered | DX: E11.65 Type 2 diabetes mellitus with hyperglycemia (principal); Z79.84 Long term (current) use of oral hypoglycemic drugs; Z71.3 Dietary counseling and surveillance | CPT/HCPCS: 97803 ==

== ENCOUNTER 2023-05-21 06:34 | Outpatient (REF) | payer MEDICARE, SELFPAY ==
[2023-05-21 06:46] LABS: MANUAL DIFF FLAG NO
[2023-05-21 07:31] LABS: Appearance Urine Clear; Basophils Percent Auto 0.6 % (0-2); Color Urine Yellow; Eosinophils Absolute Auto 0.7 X10*3/uL (0.0-0.4); Glucose Urine UA Negative (Negative); Hematocrit 39.6 % (42.0-52.0); Imm Gran Abs Auto 0.01 X10*3/uL (0.00-0.03); Imm Gran Pct Auto 0.2 % (0.0-0.4); Leukocyte Esterase Urine Negative (Negative); Lymphocytes Absolute Auto 1.3 X10*3/uL (1.2-4.9); Lymphocytes Percent Auto 22.9 % (20-40); Mean Corpuscular HGB Conc 32.8 g/dl (31.0-36.0); Mean Corpuscular Hemoglobin 30.5 pg (27.0-33.0); Mean Platelet Volume 9.1 fL (9.4-12.4); Monocytes Absolute Auto 0.5 X10*3/uL (0.1-1.2); Monocytes Percent Auto 8.6 % (2-11); Neutrophils Percent Auto 54.7 % (45-73); Nitrite Urine Negative (Negative); PH 5.5 (5.0-9.0); Platelet Count 282 X10*3/uL (160-400); Red Blood Count 4.26 X10*6/uL (4.60-5.80); Red Cell Distribution Width 13.6 % (11.0-16.0); Specific Gravity - Urine 1.015 (1.005-1.025); Urine Blood Negative (Negative); Urine Ketones Negative (Negative); Urine Protein Negative (Neg-Trace); White Blood Count 5.5 X10*3/uL (4.8-10.8)
[2023-05-21 07:36] LABS: Bacteria Urine None Seen (None Seen); Hyaline Casts Urine 0-2 /LPF (0-2); RBC Urine 0-2 /HPF (0-2); Squamous Epithelial Cell Urine 0-2 /HPF (0-2); WBC Urine 0-5 /HPF (0-5)
[2023-05-21 08:13] LABS: Estimated Average Glucose 169 mg/dL; Hemoglobin A1c % 7.5 %
[2023-05-21 08:17] LABS: Creatinine Urine 127.45 mg/dL; Microalbumin Urine < 5.0 mg/L
[2023-05-21 08:31] LABS: Alanine Aminotransferase 17 U/L (0-40); Albumin Level 4.2 g/dL (3.5-5.0); Alkaline Phosphatase 93 U/L (39-117); Anion Gap 13 (12-20); Aspartate Amino Transferase 16 U/L (5-37); Bilirubin Total 0.3 mg/dL (0.0-1.0); Blood Urea Nitrogen 17 mg/dL (9-16); Calcium 10.2 mg/dL (8.4-10.2); Carbon Dioxide 27 mmol/L (22-29); Chloride 105 mmol/L (96-108); Cholesterol 129 mg/dL; Estimated Glomerular Filt Rate 56; Glucose Random 154 mg/dL (60-115); HDL Cholesterol 38 mg/dL; LDL Cholesterol Calculated 79 mg/dl; Sodium 141 mmol/L (135-145); Total Protein 7.3 g/dL (6.5-8.0); Triglycerides 62 mg/dL
[2023-05-21 08:37] LABS: PSA,Total (Free>4and<10) < 0.10 ng/mL (0.00-4.00)
[2023-05-21 08:39] LABS: Free T4 (Free Thyroxine) 0.95 ng/dL (0.71-1.85); Thyroid Stimulating Hormone 4.23 uIU/mL (0.32-4.0)
[2023-05-21 08:53] LABS: Folate 8.8 ng/mL (> or = 4.0)
[2023-05-21 09:14] LABS: Vitamin B12 418 pg/mL (200-900)
== END 2023-05-21 06:35 | disposition home or self-care (01) ==
LOC: HO.LAB 06:34
PROVIDERS: PCP Internal Medicine; Visit Provider Internal Medicine
DX: Z12.5 Encounter for screening for malignant neoplasm of prostate (principal); E11.65 Type 2 diabetes mellitus with hyperglycemia; E78.00 Pure hypercholesterolemia, unspecified; C61 Malignant neoplasm of prostate
CPT/HCPCS: 36415; 80053; 80061; 81001; 82043; 82607; 82746; 83036; 84153; 84439; 84443; 85025

== ENCOUNTER 2023-05-22 08:47 | Outpatient (AMB) | payer MEDICARE, SELFPAY ==
--- NOTE | 2023-05-22 09:07 | A.OFFVIS_ITS ---
Intake Intake Visit Reasons: DM Position Classification Manager Required: No Accompanied by: Significant Other Allergies atorvastatin Allergy (Unknown, Verified 02/26/23 16:02) Rash pencillin Allergy (Unknown, Uncoded 02/26/23 16:02) Rash HPI Comprehensive Diabetes Asmnt Most Recent Diabetes Results: Microalb/Creat Ratio TNP 05/21/23 Cholesterol 129 mg/dL 05/21/23 HDL Cholesterol 38 mg/dL 05/21/23 Triglycerides 62 mg/dL 05/21/23 Creatinine 1.29 mg/dL (0.5-1.4) 05/21/23 Blood Urea Nitrogen 17 mg/dL (9-16) H 05/21/23 Sodium 141 mmol/L (135-145) 05/21/23 Potassium 4.0 mmol/L (3.3-5.1) 05/21/23 Chloride 105 mmol/L (96-108) 05/21/23 Carbon Dioxide 27 mmol/L (22-29) 05/21/23 Calcium 10.2 mg/dL (8.4-10.2) 05/21/23 AST 16 U/L (5-37) 05/21/23 ALT 17 U/L (0-40) 05/21/23 Total Protein 7.3 g/dL (6.5-8.0) 05/21/23 Albumin 4.2 g/dL (3.5-5.0) 05/21/23 [facility] Medical History (Updated 05/21/23 @ 19:02 by Matthew Dang MD) Abnormal PSA COPD (chronic obstructive pulmonary disease) Dental abscess Hypercholesterolemia Hypertension Plantar fasciitis Preop exam for internal medicine Preop exam for internal medicine Type 2 diabetes mellitus with hyperglycemia Vitamin D deficiency Surgical History History of bilateral cataract extraction History of hand surgery Pterygium Family History (Updated 02/26/23 @ 16:28 by Matthew Dang MD) Sister Breast cancer in situ Brother Alcohol abuse Prostate cancer CAD (coronary artery disease) Father Alcohol abuse Mother CAD (coronary artery disease) Brother Prostate cancer Brother Prostate cancer Social History Household Members: Spouse and Family Household Members Other:: , older daughter Housing: House Are you a primary care specialist to a significant other at home: No Do you presently have visiting nurse or other home services: No Alcohol intake: never Patient Tobacco Use Status: Former Tobacco user Quit Date: 2017 Tobacco use type: Cigarette Years Smoked: stopped 2017 e-Cigarette/Vaping Use: Never Used Second Hand Smoke Exposure: No service: No Current occupational status: employed Cognitive needs: No Hearing needs: No Vision needs: Yes Assessment & Plan Assessment & Plan (1) Type 2 diabetes mellitus with hyperglycemia: Comment: RECOMMEND monitoring vitamin B12 related to Pt on 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 Aguirre Code(s): E11.65 - Type 2 diabetes mellitus with hyperglycemia Plan: Personal Continuous Glucose Monitor: Patients CGM information reviewed Reviewed patient's sensor data: Hypoglycemia: ? 0% Hyperglycemia:? 41% Time in Range:? 59% Average glucose for the last 2 weeks? 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 He reports that he has decreased his physical activity, and had some increase in stress due to cancer diagnosis and financial issues due to decrease in income After review of patient's CGM data it appears that he is having increased postpr andial hyperglycemia Modified Humalog sliding scale to increase pre meal insulin Copy of New Humalog sliding scale given to patient Reviewed with patient how to treat hypoglycemia with rule of 15s Reviewed how to interpret trend arrows Reminded patient that to check finger sticks if symptoms do not match sensor reading. Discussed lag time between finger stick and sensor data.? Patient able to insert sensor independently at home without issue.? Patient Instructions: NovoLog Scale Greater than 150 to 200 mg/dL- 2 units Greater than 201 to 250 mg/dL-3 units Greater than 251 to 300 mg/dL-4 units Follow-up with agricultural extension educator in 1 month Coding Level of Care Code Est Pt Level 1 (21348) Diagnoses Type 2 diabetes mellitus with hyperglycemia E11.65
== END 2023-05-22 10:24 | disposition home or self-care (01) ==
PROVIDERS: PCP Internal Medicine; Referring Provider Internal Medicine Endocrinology, Diabetes & Metabolism; Visit Provider Registered Nurse Diabetes Educator
DX: E11.65 Type 2 diabetes mellitus with hyperglycemia (principal)

== ENCOUNTER → 2023-05-22 08:47 | Outpatient (BNVA) | payer MEDICARE, SELFPAY | PROVIDERS: Visit Provider Registered Nurse Diabetes Educator | DX: E11.65 Type 2 diabetes mellitus with hyperglycemia (principal) | CPT/HCPCS: 99211 ==

== ENCOUNTER 2023-06-20 10:20 | Outpatient (AMB) | payer MEDICARE, SELFPAY ==
--- NOTE | 2023-06-20 10:21 | MHC.OFFVIS ---
Intake Vital Signs 06/20/23 10:22 Height 5 ft 1 in Weight 139 lb 8.842 oz BMI 26.4 BP 126/54 L Blood Pressure Location Lt brachial Position Sitting Pulse 55 Pulse Source Pulse Oximeter Intake Visit Reasons: DM/Confirmed Intake Note: Patient presents today to follow up on Type 2 Diabetes Mellitus. Patient receives DME supplies through: Last Diabetic Eye exam: 2021 Last Podiatry Visit: None Random Glucose: 194mg/dl HgA1C:7.9% Play Reader Required: No Accompanied by: Spouse Allergies atorvastatin Allergy (Unknown, Verified 06/20/23 10:29) Rash pencillin Allergy (Unknown, Uncoded 02/26/23 16:02) Rash HPI HPI Comments History of Present Illness Details 67 YO M who is seen in consultation for T2DM at the request of PCP. Initially diagnosed with T2DM in few yrs . Not seen endo before Was initially started on treatment with metformin . Current regimen metfromin 500 mg BID Basaglar 15 units . Novolog 2-3 units pre meals if POC >150 Ashley download shows he is wearing the sent to 84% of the time. Average glucose is 171 with G mi of 7.4% and variability of 27.3%. 64% in target range with 36% hyperglycemia no hypoglycemia. Pattern shows increased point care after lunch and dinner with a greater extent of increased after lunch Reports low sugars rarely . Treats lows with drinks OJ . Checks sugar after to ensure it is rising. Treats according to rule of 15's. Family history of T2DM in mother , brother , sister . Has eyes checked yearly, last eye exam last yr . Needs to make appt , denies retinopathy. Denies neuropathy,not sees podiatry. Denies nephropathy, on KRISTEN/ARB. Has HLD, on statin. Denies CAD. Not Had diabetes education. [facility]LY [facility], [facility] Medical History (Updated 05/21/23 @ 19:02 by Matthew Dang MD) Preop exam for internal medicine Abnormal PSA Preop exam for internal medicine COPD (chronic obstructive pulmonary disease) Type 2 diabetes mellitus with hyperglycemia Hypertension Vitamin D deficiency Plantar fasciitis Hypercholesterolemia Dental abscess Surgical History History of bilateral cataract extraction Pterygium History of hand surgery Family History (Updated 02/26/23 @ 16:28 by Matthew Dang MD) Sister Breast cancer in situ Brother Alcohol abuse Prostate cancer CAD (coronary artery disease) Father Alcohol abuse Mother CAD (coronary artery disease) Brother Prostate cancer Brother Prostate cancer Social History Household Members: Spouse and Family Household Members Other:: , older daughter Housing: House Are you a primary careers adviser to a significant other at home: No Do you presently have visiting nurse or other home services: No Alcohol intake: never Patient Tobacco Use Status: Former Tobacco user Quit Date: 2017 Tobacco use type: Cigarette Years Smoked: stopped 2017 e-Cigarette/Vaping Use: Never Used Second Hand Smoke Exposure: No service: No Current occupational status: employed Cognitive needs: No Hearing needs: No Vision needs: Yes Physical Exam Vital Signs: Last Vital Signs Pulse 55 06/20/23 10:22 BP 126/54 L 06/20/23 10:22 BMI result Body Mass Index 26.4 Absence of Cushingoid features. Absence of acromegalic features. Neck exam reveals nl size thyroid about 15 gms. No thyroid nodules palpable. No carotid bruits present. Lungs CTA. Heart S1 S2, Reg R/R. No M/R/ G. Skin exam reveals absence of vitiligo or acanthosis nigricans. Abdominal exam reveals Soft NT/ND with NA BS. No organomegaly present. Neck Other: . Extrem Other: Visual exam of foot performed. No ulcerations or open lesions. No onchomycosis, no callouses.Pulses 2 + distally Sensation intact to monofilament exam. Vibratory sensation sensed is Decreased with 128 Hz tuning fork Results AMB Hemoglobin A1c AMB Hemoglobin A1c 7.9 % Last Edit by Neha Rivera on 06/20/23 10:47 Results Reviewed Results Reviewed: 06/20/23 10:32 Glucose, Whole Blood Routine Laboratory Last Values Glucose (Clinic) 194 mg/dL (60-115) H 06/20/23 10:32 Assessment & Plan Assessment & Plan (1) Type 2 diabetes mellitus with hyperglycemia: Comment: RECOMMEND monitoring vitamin B12 related to Pt on intermediate card tender treatment with metformin Dr. Aguirre Code(s): E11.65 - Type 2 diabetes mellitus with hyperglycemia Plan: This is a 67-year-old male with history of type 2 diabetes being treated metformin and basal insulin with fair deteriorate glycemic control and no known microvascular or macrovascular complications Plan is to start Trulicity 0.75 mg Q weekly and titrate as tolerated. Patient is were warned about side effects Trulicity including but not limited to nausea, vomiting and rare risk pancreatitis. Patient was told to contact us if any hypoglycemia occurs so we can adjust insulin regimen Orders: Orders AMB Hemoglobin A1c Today E11.65 - Type 2 diabetes mellitus with hyperglycemia Medications: New dulaglutide (Trulicity) 0.75 mg (0.5 mL) subcut QWEEK 2 mL 4RF Coding Level of Care Code Est Pt Level 4 (68623) Diagnoses Type 2 diabetes mellitus with hyperglycemia E11.65
[2023-06-20 10:22] VITALS: BP 126/54; PULSE 55; BMI 26.4
[2023-06-20 10:36] LABS: Glucose, Whole Blood 194 mg/dL (60-115)
--- NOTE | 2023-06-20 10:50 | AM.OFFVISNUR ---
Intake Vital Signs 06/20/23 10:22 Height 5 ft 1 in Weight 139 lb 8.842 oz BMI 26.4 BP 126/54 L Blood Pressure Location Lt brachial Position Sitting Pulse 55 Pulse Source Pulse Oximeter Intake Visit Reasons: DM/Confirmed Allergies atorvastatin Allergy (Unknown, Verified 06/20/23 10:29) Rash pencillin Allergy (Unknown, Uncoded 02/26/23 16:02) Rash Nursing Note Provided education on the use and disposal of the Trulicity injector pen. I demonstrated the cleansing of the area with an alcohol wipe and how to use the pen using a DEMO pen in office. Patient demonstrated the use of the pen and verbalized understanding of how to use it and dispose of the sharps. Patient and his agree to call with any further questions. Results AMB Hemoglobin A1c AMB Hemoglobin A1c 7.9 % Last Edit by Neha Rivera on 06/20/23 10:47 Coding Diagnoses Type 2 diabetes mellitus with hyperglycemia E11.65 Assessment & Plan Assessment & Plan (1) Type 2 diabetes mellitus with hyperglycemia: Comment: RECOMMEND monitoring vitamin B12 related to Pt on senior living treatment with metformin Dr. Aguirre Code(s): E11.65 - Type 2 diabetes mellitus with hyperglycemia Orders: Orders AMB Hemoglobin A1c Today E11.65 - Type 2 diabetes mellitus with hyperglycemia Medications: New dulaglutide (Trulicity) 0.75 mg (0.5 mL) subcut QWEEK 2 mL 4RF
== END 2023-06-20 10:51 | disposition home or self-care (01) ==
PROVIDERS: PCP Internal Medicine; Visit Provider Internal Medicine Endocrinology, Diabetes & Metabolism
DX: E11.65 Type 2 diabetes mellitus with hyperglycemia (principal)
CPT/HCPCS: 99214

== ENCOUNTER → 2023-06-20 10:20 | Outpatient (BNVA) | payer MEDICARE, SELFPAY | PROVIDERS: Visit Provider Internal Medicine Endocrinology, Diabetes & Metabolism | DX: E11.65 Type 2 diabetes mellitus with hyperglycemia (principal); Z79.4 Long term (current) use of insulin | CPT/HCPCS: 82947; 83036; 99212 ==

== ENCOUNTER 2023-06-24 09:19 | Outpatient (AMB) | payer MEDICARE, SELFPAY ==
--- NOTE | 2023-06-24 09:28 | MHC.AMDMED ---
Intake Intake Visit Reasons: DM Debate Director Required: No Accompanied by: Spouse Allergies atorvastatin Allergy (Unknown, Verified 06/20/23 10:29) Rash pencillin Allergy (Unknown, Uncoded 02/26/23 16:02) Rash HPI Comprehensive Diabetes Asmnt Most Recent Diabetes Results: Microalb/Creat Ratio TNP 05/21/23 Cholesterol 129 mg/dL 05/21/23 HDL Cholesterol 38 mg/dL 05/21/23 Triglycerides 62 mg/dL 05/21/23 Creatinine 1.29 mg/dL (0.5-1.4) 05/21/23 Blood Urea Nitrogen 17 mg/dL (9-16) H 05/21/23 Sodium 141 mmol/L (135-145) 05/21/23 Potassium 4.0 mmol/L (3.3-5.1) 05/21/23 Chloride 105 mmol/L (96-108) 05/21/23 Carbon Dioxide 27 mmol/L (22-29) 05/21/23 Calcium 10.2 mg/dL (8.4-10.2) 05/21/23 AST 16 U/L (5-37) 05/21/23 ALT 17 U/L (0-40) 05/21/23 Total Protein 7.3 g/dL (6.5-8.0) 05/21/23 Albumin 4.2 g/dL (3.5-5.0) 05/21/23 [facility] Medical History (Updated 05/21/23 @ 19:02 by Matthew Dang MD) Preop exam for internal medicine Abnormal PSA Preop exam for internal medicine COPD (chronic obstructive pulmonary disease) Type 2 diabetes mellitus with hyperglycemia Hypertension Vitamin D deficiency Plantar fasciitis Hypercholesterolemia Dental abscess Surgical History History of bilateral cataract extraction Pterygium History of hand surgery Family History Sister Breast cancer in situ Brother Alcohol abuse Prostate cancer CAD (coronary artery disease) Father Alcohol abuse Mother CAD (coronary artery disease) Brother Prostate cancer Brother Prostate cancer Social History Household Members: Spouse and Family Household Members Other:: , older daughter Housing: House Are you a primary wild animal caretaker to a significant other at home: No Do you presently have visiting nurse or other home services: No Alcohol intake: never Patient Tobacco Use Status: Former Tobacco user Quit Date: 2017 Tobacco use type: Cigarette Years Smoked: stopped 2017 e-Cigarette/Vaping Use: Never Used Second Hand Smoke Exposure: No service: No Current occupational status: employed Cognitive needs: No Hearing needs: No Vision needs: Yes Assessment & Plan Assessment & Plan (1) Type 2 diabetes mellitus with hyperglycemia: Comment: RECOMMEND monitoring vitamin B12 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 Aguirre Code(s): E11.65 - Type 2 diabetes mellitus with hyperglycemia Plan: Personal Continuous Glucose Monitor: Patients CGM information reviewed Reviewed patient's sensor data: Hypoglycemia: ? 34% Hyperglycemia:? 66% Time in Range:? 0% Average glucose for the last 2 weeks?165 mg/dL Dr. Tellez has prescribed Trulicity 0.75 mg weekly, patient has not started yet. Discussed with patient common side effects such as nausea, constipation, diarrhea. Instructed patient if he should begin to experience episodes of hypoglycemia contact Dr. Tellez or certified lactation educator for adjustment in the insulin. If patient experiences loss of appetite or nausea patient reports he probably will not continue with Trulicity. Patient will follow-up with certified lactation educator in 1 month Patient Instructions: Patient instruction: CGM provides information on blood glucose control throughout the day, including hyperglycemia and hypoglycemia. ? Continue to monitor blood glucose as instructed. Follow nutrition guidelines provided. Report any discomfort promptly to health care provider. ?Stay well-hydrated. You can bathe ,shower, swim and exerce while wearing the glucose sensor. Do not submerge glucose sensor in water for more than 30 minutes. Remove sensor for MRI or CAT scan. Avoid Xray machine in airports - remove sensor or request wand Coding Level of Care Code Est Pt Level 1 (36697) Diagnoses Type 2 diabetes mellitus with hyperglycemia E11.65
== END 2023-06-24 09:52 | disposition home or self-care (01) ==
PROVIDERS: PCP Internal Medicine; Visit Provider Registered Nurse Diabetes Educator
DX: E11.65 Type 2 diabetes mellitus with hyperglycemia (principal)

== ENCOUNTER → 2023-06-24 09:19 | Outpatient (BNVA) | payer MEDICARE, SELFPAY | PROVIDERS: PCP Internal Medicine; Visit Provider Registered Nurse Diabetes Educator | DX: E11.65 Type 2 diabetes mellitus with hyperglycemia (principal) | CPT/HCPCS: 99211 ==

== ENCOUNTER 2023-08-06 10:41 | Outpatient (AMB) | payer MEDICARE, SELFPAY ==
--- NOTE | 2023-08-06 11:05 | MHC.AMDMED ---
Intake Intake Visit Reasons: DM Allergies atorvastatin Allergy (Unknown, Verified 06/20/23 10:29) Rash pencillin Allergy (Unknown, Uncoded 02/26/23 16:02) Rash HPI Comprehensive Diabetes Asmnt Most Recent Diabetes Results: Microalb/Creat Ratio TNP 05/21/23 Cholesterol 129 mg/dL 05/21/23 HDL Cholesterol 38 mg/dL 05/21/23 Triglycerides 62 mg/dL 05/21/23 Creatinine 1.29 mg/dL (0.5-1.4) 05/21/23 Blood Urea Nitrogen 17 mg/dL (9-16) H 05/21/23 Sodium 141 mmol/L (135-145) 05/21/23 Potassium 4.0 mmol/L (3.3-5.1) 05/21/23 Chloride 105 mmol/L (96-108) 05/21/23 Carbon Dioxide 27 mmol/L (22-29) 05/21/23 Calcium 10.2 mg/dL (8.4-10.2) 05/21/23 AST 16 U/L (5-37) 05/21/23 ALT 17 U/L (0-40) 05/21/23 Total Protein 7.3 g/dL (6.5-8.0) 05/21/23 Albumin 4.2 g/dL (3.5-5.0) 05/21/23 [facility] Medical History (Updated 05/21/23 @ 19:02 by Matthew Dang MD) Preop exam for internal medicine Abnormal PSA Preop exam for internal medicine COPD (chronic obstructive pulmonary disease) Type 2 diabetes mellitus with hyperglycemia Hypertension Vitamin D deficiency Plantar fasciitis Hypercholesterolemia Dental abscess Surgical History History of bilateral cataract extraction Pterygium History of hand surgery Family History Sister Breast cancer in situ Brother Alcohol abuse Prostate cancer CAD (coronary artery disease) Father Alcohol abuse Mother CAD (coronary artery disease) Brother Prostate cancer Brother Prostate cancer Social History Household Members: Spouse and Family Household Members Other:: , older daughter Housing: House Are you a primary child care education coordinator to a significant other at home: No Do you presently have visiting nurse or other home services: No Alcohol intake: never Patient Tobacco Use Status: Former Tobacco user Quit Date: 2017 Tobacco use type: Cigarette Years Smoked: stopped 2018 e-Cigarette/Vaping Use: Never Used Second Hand Smoke Exposure: No service: No Current occupational status: employed Cognitive needs: No Hearing needs: No Vision needs: Yes Assessment & Plan Assessment & Plan (1) Type 2 diabetes mellitus with hyperglycemia: Comment: RECOMMEND monitoring vitamin B12 related to Pt on intermediate manager treatment with metformin Dr. Aguirre Code(s): E11.65 - Type 2 diabetes mellitus with hyperglycemia Plan: Personal Continuous Glucose Monitor: Patients CGM information reviewed Reviewed patient's sensor data: Hypoglycemia: ? 1% Hyperglycemia:? 11% Time in Range:? 88% Average glucose for the last 2 weeks 130? mg/dL Reminded patient he must scan sensor every 4-6 hours to capture all of the data On current Ashley view patient only has 32% of sensor use It does appear that since starting Trulicity approximately 4 weeks ago patient is experiencing episodes of hypoglycemia Recommended to patient he reduce Basaglar 15 units to 10 units daily If after 3 days fasting glucose is above 150 mg/dL increase Basaglar to 12 units Patient currently is finished with cancer treatment, is still experiencing side effects from treatment Patient also has NovoLog sliding scale in case of high hyperglycemia. Patient has follow-up appointment with CHARIS on 08/26/2023 Follow-up appointment with Dr. Tellez on 10/16/2023 Recommended to patient follow-up with library services dean in 4 months Reminded patient that to check finger sticks if symptoms do not match sensor reading. Discussed lag time between finger stick and sensor data.? Patient able to insert sensor independently at home without issue.? Patient Instructions: Reducir Basaglar 15 unidades a 10 unidades Despu?s de 3 d?as Si la glucosa en ayunas aumenta por encima de 150 mg/dL aumentar Basaglar a 12 unidades Coding Level of Care Code Tele Est Pt Level 1 (51464) Diagnoses Type 2 diabetes mellitus with hyperglycemia E11.65
== END 2023-08-06 11:09 | disposition home or self-care (01) ==
PROVIDERS: PCP Internal Medicine; Visit Provider Registered Nurse Diabetes Educator
DX: E11.65 Type 2 diabetes mellitus with hyperglycemia (principal)
CPT/HCPCS: 99211

== ENCOUNTER → 2023-08-06 10:41 | Outpatient (BNVA) | payer MEDICARE, SELFPAY | PROVIDERS: PCP Internal Medicine; Visit Provider Registered Nurse Diabetes Educator ==

== ENCOUNTER 2023-08-09 09:38 | Day surgery (SDC) | payer MEDICARE, SELFPAY ==
[2023-08-06 15:12] VITALS: BMI 24.7
--- NOTE | 2023-08-08 10:00 | HO.ANESPROP2 ---
Documented by User: Anne Marie Mehta NP 08/08/23 10:02 HPI - Anesthesia Eval Consult details Narrative: 67yo M for Colonoscopy Anesthesia Pre-Procedure Meds Is the patient on any of the following meds?: Dulaglutide (Trulicity) (Last dose 08/01/23) PMFSH Active Problems Active Problems: All Active Problems (Updated 08/06/23 @ 14:58 by Kalpana Smith RN) TSH elevation (Acute) Hearing difficulty (Acute) Annual physical exam (Acute) Cataract (Acute) COVID-19 virus infection (Acute) Rectal incontinence (Acute) Prostate cancer (Acute) Hypercholesterolemia (Acute) COPD (chronic obstructive pulmonary disease) (Acute) Type 2 diabetes mellitus with hyperglycemia (Acute) Hypertension (Acute) Past Medical History Medical History (Updated 08/06/23 @ 14:58 by Kalpana Smith RN) Prostate cancer Abnormal PSA COPD (chronic obstructive pulmonary disease) Type 2 diabetes mellitus with hyperglycemia Hypertension Vitamin D deficiency Plantar fasciitis Hypercholesterolemia Dental abscess Family History Family History Sister Breast cancer in situ Brother Alcohol abuse Prostate cancer CAD (coronary artery disease) Father Alcohol abuse Mother CAD (coronary artery disease) Brother Prostate cancer Brother Prostate cancer Family history of problems with anesthesia: No Surgical History Surgical History (Updated 08/06/23 @ 14:57 by Kalpana Smith RN) H/O colonoscopy Hx of eye surgery History of bilateral cataract extraction History of hand surgery History of Problems with Anesthesia: No Social History Social History Household Members: Spouse and Family Household Members Other:: , older daughter Housing: House Are you a primary intensive care anaesthetist to a significant other at home: No Do you presently have visiting nurse or other home services: No Alcohol intake: never Patient Tobacco Use Status: Former Tobacco user Quit Date: 2017 Tobacco use type: Cigarette Years Smoked: stopped 2017 e-Cigarette/Vaping Use: Never Used Second Hand Smoke Exposure: No Are you DNR?: No Advance Directives: No Advance Directives Information Provided: Yes Nutrition Risks: No Nutritional Risk service: No Current occupational status: employed Cognitive needs: No Hearing needs: No Vision needs: Yes Meds Allergies Allergy/AdvReac Type Severity Reaction Status Date / Time atorvastatin Allergy Unknown Rash Verified 06/20/23 10:29 pencillin Allergy Unknown Rash Uncoded 02/26/23 16:02 Home Medications Medication Instructions Recorded Confirmed Last Taken Type insulin glargine 100 unit/mL (3 15 unit subcut QAM 02/26/23 08/06/23 Unknown History mL) subcutaneous pen (Basaglar KwikPen U-100 Insulin) irbesartan 150 mg tablet 150 mg PO DAILY 08/06/23 08/06/23 Unknown History pioglitazone 30 mg tablet 30 mg PO DAILY 08/06/23 08/06/23 Unknown History Exam Exam Date and Time: August 08, 2023 1000 Height,Weight and Vital Signs: Height 5 ft 2.5 in Weight 62.142 kg Pertinent Lab Results Pertinent Lab Results: Laboratory Tests 05/21/23 06:45 WBC 5.5 Hgb 13.0 L Hct 39.6 L Plt Count 282 Sodium 141 Potassium 4.0 Chloride 105 Carbon Dioxide 27 BUN 17 H Creatinine 1.29 Assessment and Plan Assessment Anesthesia Assessment: Chart Reviewed Final Anesthetic Review Family History of Problems with Anesthesia: No History of Problems with Anesthesia: No Documented by User: Giovany Jorgensen MD 08/09/23 10:08 HPI - Anesthesia Eval Anesthesia Pre-Procedure Meds If Yes to any meds - educate patient: Pt education - increased risk of aspiration PMFSH Past Medical History Medical History (Updated 08/06/23 @ 14:58 by Kalpana Smith RN) Prostate cancer Abnormal PSA COPD (chronic obstructive pulmonary disease) Type 2 diabetes mellitus with hyperglycemia Hypertension Vitamin D deficiency Plantar fasciitis Hypercholesterolemia Dental abscess Family History Family History Sister Breast cancer in situ Brother Alcohol abuse Prostate cancer CAD (coronary artery disease) Father Alcohol abuse Mother CAD (coronary artery disease) Brother Prostate cancer Brother Prostate cancer Surgical History Surgical History (Updated 08/06/23 @ 14:57 by Kalpana Smith RN) H/O colonoscopy Hx of eye surgery History of bilateral cataract extraction History of hand surgery Social History Social History Household Members: Spouse and Family Household Members Other:: , older daughter Housing: House Are you a primary intensive care anaesthetist to a significant other at home: No Do you presently have visiting nurse or other home services: No Alcohol intake: never Patient Tobacco Use Status: Former Tobacco user Quit Date: 2017 Tobacco use type: Cigarette Years Smoked: stopped 2017 e-Cigarette/Vaping Use: Never Used Second Hand Smoke Exposure: No Are you DNR?: No Advance Directives: No Advance Directives Information Provided: Yes Nutrition Risks: No Nutritional Risk service: No Current occupational status: employed Cognitive needs: No Hearing needs: No Vision needs: Yes Meds Allergies Allergy/AdvReac Type Severity Reaction Status Date / Time atorvastatin Allergy Unknown Rash Verified 06/20/23 10:29 pencillin Allergy Unknown Rash Uncoded 02/26/23 16:02 Home Medications Medication Instructions Recorded Confirmed Last Taken Type insulin glargine 100 unit/mL (3 15 unit subcut QAM 02/26/23 08/06/23 Unknown History mL) subcutaneous pen (Basaglar KwikPen U-100 Insulin) irbesartan 150 mg tablet 150 mg PO DAILY 08/06/23 08/06/23 Unknown History pioglitazone 30 mg tablet 30 mg PO DAILY 08/06/23 08/06/23 Unknown History Exam Airway Mallampati Class: II TM Dist: >3cm Neck ROM: Full Assessment and Plan Assessment Anesthesia Assessment: Anesthesia Plan Discussed Final Anesthetic Review NPO: Yes ASA Class: III Final Preanesthetic Review: No Changes in Pt Med Stat, Meds/Allgs Chart Reviewed, Consent Obtained/Reviewed and Anes Risks/Benef Reviewed Patient Risk: Intermediate Procedure Risk: Low Anesthetic Plan Anesthetic Plan: MAC: Disposition: Standard PACU
--- NOTE | 2023-08-09 10:05 | PC.NURSE ---
patient speaks and understands Mauritian well. Water Resource Consultant used to explain procedure and post procedure.
[2023-08-09 10:06] VITALS: BP 134/56; PULSE 75; RESP 18; TEMP 36.7; O2SAT 97
[2023-08-09 10:07] LABS: Glucose, Whole Blood 139 mg/dL (60-115)
[2023-08-09] MEDS: Lactated Ringers 1,000 ML 100 ML IVCONT (10:10)
[2023-08-09 11:36] VITALS: BP 110/48; PULSE 71; RESP 16; TEMP 36.1; O2SAT 98
--- NOTE | 2023-08-09 11:39 | P.BOP_ITS ---
Brief Operative Note Date of Service: 08/09/23 Procedure: colonoscopy Surgeon: Young Covarrubias MD Anesthesia: MAC Was an Cylindrical Mixer used for this Procedure?: No Estimated blood loss (mL): 2 Pathology: other Condition: stable Disposition: PACU
--- NOTE | 2023-08-09 11:39 | MHC.SHP ---
Pre-Procedural Eval Section A Date of Service: 08/09/23 Section B Chief Complaint: Other specified symptoms and signs involving the d Details of Present Illness: see H&P Relevant Family History (Specify if Yes): No Relevant Social History: None Present Medications: see Short Stay Collaborative assessment History of Previous Operations: No relevant previous surgery Allergies: Allergies Allergy/AdvReac Type Severity Reaction Status Date / Time atorvastatin Allergy Unknown Rash Verified 08/09/23 10:08 pencillin Allergy Unknown Rash Uncoded 08/09/23 10:08 Review of Systems Sugical H&P ROS: Negative: Constitution, Cardiovascular, Respiratory, Neurological, Psychiatric, Hem-Onc, Allergic/Immunologic, Gastrointestinal, Genitourinary, Musculoskeletal, Integumentary, Endocrine and Eyes/Ears/Nose/Throat Exam Surgical H&P Exam: Normal: HEENT, Normal: Heart, Normal: Lungs, Normal: Extremities, Normal: Abdomen, Normal: Skin and Normal: Neurological Plan Diagnosis/Plan: Unchanged I have reviewed the history and physical and performed a pertinent physical examination on my patient. No changes have occurred unless specified. Time Spent With Patient Time: Total time managing care of this patient today ____ minutes.
[2023-08-09 11:51] VITALS: BP 127/68; PULSE 65; RESP 15; O2SAT 99
[2023-08-09 12:04] VITALS: BP 141/77; PULSE 68; RESP 14; TEMP 36.2; O2SAT 100
--- NOTE | 2023-08-09 12:18 | OP_ITS ---
DATE OF SERVICE: 08/09/2023 SURGEON: Young Covarrubias MD INDICATIONS: Change in bowel habits. PREOPERATIVE DIAGNOSIS: POSTOPERATIVE DIAGNOSIS: PROCEDURE PERFORMED: Colonoscopy to the terminal ileum with biopsy. ESTIMATED BLOOD LOSS: COMPLICATIONS: ANESTHESIA: Monitored anesthesia care. ASSISTANTS: SPECIMENS: DESCRIPTION OF PROCEDURE: The risks and benefits of the procedure were explained to the patient, and informed consent was obtained. The patient was placed in the left lateral decubitus position. A digital rectal exam was performed and was found to be normal. The Olympus pediatric video colonoscope was introduced into the rectum and advanced to the cecum. The cecum was identified by transillumination, palpation, and identification of the ileocecal valve. Examination was performed. The scope was removed. He tolerated the procedure well and was returned to recovery in stable condition. FINDINGS: The terminal ileum was examined and appeared normal. The visualized colonic mucosa was normal. There was no evidence of Crohn disease or ulcerative colitis. There were some telangiectasias present in the rectum, consistent with his history of radiation therapy to the prostate. There was no active colitis. Biopsies were obtained from the rectum and from normal-appearing mucosa in the sigmoid. Retroflexed examination showed internal hemorrhoids. IMPRESSION: Proctitis. RECOMMENDATION: Follow up the biopsy results. MD REGINA Conley/TANESHA / [id number]
== END 2023-08-09 12:16 | disposition home or self-care (01) ==
PROVIDERS: PCP Internal Medicine; Visit Provider Internal Medicine Gastroenterology
PROC: 0DJD8ZZ Inspection of Lower Intestinal Tract, Via Natural or Artificial Opening Endoscopic (ICD-10-PCS; CPT 45378; principal; 2023-08-09 11:00)
DX: R19.4 Change in bowel habit (principal); K62.89 Other specified diseases of anus and rectum; R15.2 Fecal urgency; Z85.46 Personal history of malignant neoplasm of prostate; K62.7 Radiation proctitis; K64.8 Other hemorrhoids; K57.30 Diverticulosis of large intestine without perforation or abscess without bleeding; J44.9 Chronic obstructive pulmonary disease, unspecified; I10 Essential (primary) hypertension; E78.5 Hyperlipidemia, unspecified; E11.9 Type 2 diabetes mellitus without complications; Z79.4 Long term (current) use of insulin; Z79.84 Long term (current) use of oral hypoglycemic drugs; Z79.85 Long-term (current) use of injectable non-insulin antidiabetic drugs; Z79.899 Other long term (current) drug therapy; Z88.0 Allergy status to penicillin; Z87.891 Personal history of nicotine dependence
CPT/HCPCS: 45380; 82947; 88305

== ENCOUNTER 2023-08-13 13:58 | Outpatient (AMB) | payer MEDICARE, SELFPAY ==
[2023-08-13 14:01] VITALS: BP 124/74; PULSE 73; O2SAT 95; BMI 24.8
--- NOTE | 2023-08-13 14:01 | MHC.PC.OV ---
Vital Signs 08/13/23 14:01 Height 5 ft 2.5 in Weight 138 lb BMI 24.8 BP 124/74 Blood Pressure Location Lt brachial Position Sitting Pulse 73 Pulse Source Pulse Oximeter Pulse Oximetry (%) 95 Oxygen Delivery Method Room Air Intake Visit Reasons: 3 month f/u Allergies atorvastatin Allergy (Unknown, Verified 08/13/23 14:01) Rash pencillin Allergy (Unknown, Uncoded 08/13/23 14:01) Rash Medication List - Last Reconciled 08/13/23 by Matthew Dang MD blood sugar diagnostic (FreeStyle Lite Strips) As directed check the BS TID blood-glucose meter (FreeStyle Lite Meter kit) As directed dulaglutide (Trulicity) 0.75 mg (0.5 mL) subcut QWEEK flash glucose scanning reader (FreeStyle Ashley 2 Rumely) As directed flash glucose sensor (FreeStyle Ashley 2 Sensor kit) As directed every 2 weeks flash glucose sensor (FreeStyle Ashley 2 Sensor kit) As directed insulin aspart U-100 (Novolog FlexPen U-100 Insulin aspart) 8 units (0.08 mL) subcut TID insulin glargine (Basaglar KwikPen U-100 Insulin) 15 units subcut QAM lancets (FreeStyle Lancets) As directed check BS TID losartan 25 mg PO DAILY 90 days metformin 500 mg PO BID pen needle, diabetic (1st Tier Unifine Pentips Plus) USE DIRECTED 5X PER DAY rosuvastatin 5 mg PO DAILY Tobacco use date assessed: 11/26/22 Fall risk assessment: No Falls in past year Last assessed Fall Risk: 08/13/23 Dental Screening Dental Screen Date: 08/13/23 Did you have a dental visit in the last 12 months?: Yes Did you have a dental problem in the last 6 months where you did not have access to dental care?: No Was dental information given to patient?: Patient has dentist HPI 3 month f/u HPI Details 67-year-old male with a history of prostate cancer 2021, diabetes mellitus hypertension COPD hypercholesterolemia last seen in February 2023. Patient is up-to-date with colonoscopy August [address] Covarrubias diagnosis of proctitis. Patient follows up with urology seen June 2023 diagnosis of high risk high-grade [place] 9 prostate malignancy status post radiation and on ADT. Patient follows up with endocrinology now for the diabetes. Patient was started on Trulicity PFSH Medical History (Updated 08/13/23 @ 14:20 by Matthew Dang MD) Prostate cancer Abnormal PSA COPD (chronic obstructive pulmonary disease) Type 2 diabetes mellitus with hyperglycemia Hypertension Vitamin D deficiency Plantar fasciitis Hypercholesterolemia Dental abscess Surgical History (Updated 08/13/23 @ 14:34 by Matthew Dang MD) H/O colonoscopy Hx of eye surgery History of bilateral cataract extraction History of hand surgery Family History Sister Breast cancer in situ Brother Alcohol abuse Prostate cancer CAD (coronary artery disease) Father Alcohol abuse Mother CAD (coronary artery disease) Brother Prostate cancer Brother Prostate cancer Social History Household Members: Spouse and Family Household Members Other:: , older daughter Housing: House Are you a primary health care marketing manager to a significant other at home: No Do you presently have visiting nurse or other home services: No Alcohol intake: never Patient Tobacco Use Status: Former Tobacco user Quit Date: 2017 Tobacco use type: Cigarette Years Smoked: stopped 2017 e-Cigarette/Vaping Use: Never Used Second Hand Smoke Exposure: No service: No Current occupational status: employed Cognitive needs: No Hearing needs: No Vision needs: Yes Questionnaire PHQ-9 Over the last 2 weeks, how often have you been bothered by any of the following problems? 1. Little interest or pleasure in doing things: not at all 2. Feeling down, depressed, or hopeless: not at all 3. Trouble falling or staying asleep, or sleeping too much: not at all 4. Feeling tired or having little energy: not at all 5. Poor appetite or overeating: not at all 6. Feeling bad about yourself - or that you are a failure or have let yourself or your family down: not at all 7. Trouble concentrating on things, such as reading the newspaper or watching television: not at all 8. Moving or speaking so slowly that other people could have noticed. Or the opposite - being so fidgety or restless that you have been moving around a lot more than usual: not at all 9. Thoughts that you would be better off or of hurting yourself in some way: not at all Total score: 0 Depression Screening Interpretation: Negative Depression Screening Done: Yes Source: Developed by Drs. Abiel Mireles, Tez Gagnon and colleagues, with an educational mercy from [employer]. Thrive Questionnaire Date Thrive assessed: 11/26/22 AUDIT C Alcohol Use Questionnaire (AUDIT-C) 1. How often do you have a drink containing alcohol?: Never 3. How often do you have six or more drinks on one occasion?: Never Total Score: 0 KYLE-7 AMB Questionnaire KYLE-7 Date KYLE - 7 assessed: 11/26/22 Source: Developed by Katherin Walsh Kurt Kroenke and colleagues, with an educational mercy from [employer]. Physical exam (Primary Care) Vital Signs: Oxygen Delivery Method Room Air 08/13/23 14:01 Tobacco/Smoking Status: Tobacco use Status Tobacco use date assessed 11/26/22 08/13/23 14:02 Patient Tobacco Use Status Former Tobacco user 08/13/23 14:02 Tobacco use type Cigarette 08/13/23 14:02 e-Cigarette/Vaping Use Never Used 08/13/23 14:02 PHQ-9: PHQ-9 Score PHQ-9: Total score 0 08/13/23 14:02 Depression Screening Interpretation: Negative Thrive Assessment: Date of Thrive Assessment Date Thrive assessed 11/26/22 08/13/23 14:02 Const General: alert; No acute distress Eyes Conjunctivae: conjunctivae normal Resp Auscultation: clear to auscultation bilaterally Cardio Rate: regular rate Rhythm: regular rhythm GI Inspection: Yes normal to inspection Extrem General: Yes normal to inspection and No edema Assessment and Plan Assessment & Plan (1) Prostate cancer: Comment: [facility] 9 prostate cancer external beam radiation January 2022, [facility] therapy Code(s): C61 - Malignant neoplasm of prostate Plan: Patient continues follow-up with Urology on PSA continued to be monitored (2) Type 2 diabetes mellitus with hyperglycemia: Comment: RECOMMEND monitoring vitamin B12 related to Pt on chcf treatment with metformin Dr. Aguirre Code(s): E11.65 - Type 2 diabetes mellitus with hyperglycemia Plan: Decrease the amount of carbohydrate intake, pasta, bread, rice and potatoes are all sugar and that is aside from all the sweet stuff, remember that fruits are good but they are Sweet also. Hemoglobin A1c goal of less than 7.0. Patient sees Endocrinology and has been started on Trulicity (3) Hypertension: Code(s): I10 - Essential (primary) hypertension Plan: Continue with blood pressure medication. Decrease salt intake and exercise patient takes (4) Hypercholesterolemia: Code(s): E78.00 - Pure hypercholesterolemia, unspecified Plan: Avoid fried foods, chicken skin, eggs, butter margarine, pastries and meat. Be it pork or beef they have a lot of cholesterol LDL goal of less than 100 and triglyceride of less than 150 patient on rosuvastatin 5 mg once a day (5) Overactive bladder: Code(s): N32.81 - Overactive bladder Plan: Patient was advised to start on trospium (6) Rectal incontinence: Code(s): R15.9 - Full incontinence of feces Medications: New methylcellulose (laxative) (Citrucel) 1,000 mg (2 x 500 mg) PO DAILY 60 tabs 1RF R15.9 - Full incontinence of feces Changed From insulin glargine (Basaglar KwikPen U-100 Insulin) 15 units subcut QAM E11.65 - Type 2 diabetes mellitus with hyperglycemia To insulin glargine (Basaglar KwikPen U-100 Insulin) 12 units subcut QAM E11.65 - Type 2 diabetes mellitus with hyperglycemia Coding Level of Care Code Est Pt Level 4 (27710) Diagnoses Prostate cancer C61 Type 2 diabetes mellitus with hyperglycemia E11.65 Hypertension I10 Hypercholesterolemia E78.00 Overactive bladder N32.81 Rectal incontinence R15.9
== END 2023-08-13 14:41 | disposition home or self-care (01) ==
PROVIDERS: PCP Internal Medicine; Visit Provider Internal Medicine
DX: C61 Malignant neoplasm of prostate (principal); E11.65 Type 2 diabetes mellitus with hyperglycemia; I10 Essential (primary) hypertension; E78.00 Pure hypercholesterolemia, unspecified; N32.81 Overactive bladder; R15.9 Full incontinence of feces
CPT/HCPCS: 99214

== ENCOUNTER 2023-10-08 11:22 | Outpatient (AMB) | payer MEDICARE, SELFPAY ==
[2023-10-08 11:39] VITALS: BMI 24.9
--- NOTE | 2023-10-08 11:39 | A.OFFVIS_ITS ---
Intake VS Expanded 10/08/23 11:39 Height 5 ft 2.5 in Weight 138 lb 7.205 oz BMI 24.9 Intake Visit Reasons: t2dm/LVM Allergies atorvastatin Allergy (Unknown, Verified 08/13/23 14:01) Rash pencillin Allergy (Unknown, Uncoded 08/13/23 14:01) Rash HPI Nutrition Presentation Details Pt presents for MNT f/u for T2DM Pt reports doing well, no questions or concerns expressed today Reports having 3 meals per day B: sandw with egg/cheese, coffee with milk and sugar L/D: rice/beans/chicken, salad, water snack: crackers with peanut butter , water or milk or coffee physical activity: daily life activities Most Recent Diabetes Results: Microalb/Creat Ratio TNP 05/21/23 Cholesterol 129 mg/dL 05/21/23 HDL Cholesterol 38 mg/dL 05/21/23 Triglycerides 62 mg/dL 05/21/23 Creatinine 1.29 mg/dL (0.5-1.4) 05/21/23 Blood Urea Nitrogen 17 mg/dL (9-16) H 05/21/23 Sodium 141 mmol/L (135-145) 05/21/23 Potassium 4.0 mmol/L (3.3-5.1) 05/21/23 Chloride 105 mmol/L (96-108) 05/21/23 Carbon Dioxide 27 mmol/L (22-29) 05/21/23 Calcium 10.2 mg/dL (8.4-10.2) 05/21/23 AST 16 U/L (5-37) 05/21/23 ALT 17 U/L (0-40) 05/21/23 Total Protein 7.3 g/dL (6.5-8.0) 05/21/23 Albumin 4.2 g/dL (3.5-5.0) 05/21/23 PFSH Medical History (Updated 10/08/23 @ 11:[address], LDN) Prostate cancer Abnormal PSA COPD (chronic obstructive pulmonary disease) Type 2 diabetes mellitus with hyperglycemia Hypertension Vitamin D deficiency Plantar fasciitis Hypercholesterolemia Dental abscess Surgical History (Updated 08/13/23 @ 14:34 by Matthew Dang MD) H/O colonoscopy Hx of eye surgery History of bilateral cataract extraction History of hand surgery Family History Sister Breast cancer in situ Brother Alcohol abuse Prostate cancer CAD (coronary artery disease) Father Alcohol abuse Mother CAD (coronary artery disease) Brother Prostate cancer Brother Prostate cancer Social History Household Members: Spouse and Family Household Members Other:: , older daughter Housing: House Are you a primary care specialist to a significant other at home: No Do you presently have visiting nurse or other home services: No Alcohol intake: never Patient Tobacco Use Status: Former Tobacco user Quit Date: 2017 Tobacco use type: Cigarette Years Smoked: stopped 2017 e-Cigarette/Vaping Use: Never Used Second Hand Smoke Exposure: No service: No Current occupational status: employed Cognitive needs: No Hearing needs: No Vision needs: Yes Assessment & Plan Assessment & Plan (1) Type 2 diabetes mellitus with hyperglycemia: Code(s): E11.65 - Type 2 diabetes mellitus with hyperglycemia Plan: Educate Pt on 1500- 1600 wilfrid meal plan ? Used wt : 63 kg Est kcal as per MSJ: 1534 (40% carb, 30% fat/prot) Est fluid needs: 1579 ml/d (25 ml/kg bw) Rec fiber: increase to 8-10 g per day and as tolerated Rec Na: < 2000 mg /d Educate patient on: (R= Reviewed, V = verbalizes understanding N/R= Needs review N/A= not applicable) * Food sources of carbohydrates and serving adequate serving sizes : R,V * Difference between complex carbohydrates and simple carbohydrates, role of fiber: R,V * Differences between fats (MUFA/PUFA/saturated fats, trans fats) and food sources of various fats: R ,V * Food sources of sodium and salt and healthy modifications for heart health and kidney health: R V * How to interpret food labels: R ,V * Healthy Plate method concept: R,V * Physical activity: benefits and precaution: R,V Patient Instructions: Include food sources of iron (spinach, liver, beans, oats) along with food sources of vitamin c (vegetables/fruits) Maintain total carb at meal to 45-60 following healthy plate method keepphysically active as tolerated, goal 150 minutes per week. Keep hydrated by having water with meals/snacks Coding Level of Care Code Nutr Indiv Subseq (82505) Diagnoses Type 2 diabetes mellitus with hyperglycemia E11.65 Time Spent (min) 30
== END 2023-10-08 12:00 | disposition home or self-care (01) ==
PROVIDERS: PCP Internal Medicine; Visit Provider Dietitian, Registered
DX: E11.65 Type 2 diabetes mellitus with hyperglycemia (principal)

== ENCOUNTER → 2023-10-08 11:22 | Outpatient (BNVA) | payer MEDICARE, SELFPAY | PROVIDERS: PCP Internal Medicine; Visit Provider Dietitian, Registered | DX: E11.65 Type 2 diabetes mellitus with hyperglycemia (principal); Z71.3 Dietary counseling and surveillance | CPT/HCPCS: 97803 ==

== ENCOUNTER 2023-10-16 08:46 | Outpatient (AMB) | payer MEDICARE, SELFPAY ==
--- NOTE | 2023-10-16 08:47 | MHC.OFFVIS ---
Intake Vital Signs 10/16/23 08:48 Height 5 ft 2.5 in Weight 139 lb 1.787 oz BMI 25.0 BP 104/64 Blood Pressure Location Rt brachial Position Sitting Pulse 70 Pulse Source Pulse Oximeter Intake Visit Reasons: T7HT-MNP Intake Note: Patient presents today to follow up on DMT2. Last Diabetic Eye exam: March 2023 Last Podiatry Visit: None Random Glucose: 136 mg/dl HgA1C: 7.3% Combination Saw Operator Required: Yes Combination Saw Operator Language: Digital Measurement Advisor Name: Gisela medical staff Information Interpreted: non-clinical & clinical Accompanied by: Spouse Allergies atorvastatin Allergy (Unknown, Verified 10/16/23 08:54) Rash pencillin Allergy (Unknown, Uncoded 08/13/23 14:01) Rash HPI HPI Comments History of Present Illness Details 67 YO M who is seen in consultation for T2DM at the request of PCP. Initially diagnosed with T2DM in few yrs . Not seen endo before Was initially started on treatment with metformin . Current regimen metfromin 500 mg BID Basaglar 12 units . Novolog 8 units pre meals if POC >150 Ashley download shows he is wearing the sent to 79% of the time. Average glucose is 128 with G mi of 6.4% and variability of 24.9%. 93% in target range with 7% hyperglycemia no hypoglycemia. Reports low sugars rarely . Treats lows with drinks OJ . Checks sugar after to ensure it is rising. Treats according to rule of 15's. Family history of T2DM in mother , brother , sister . Has eyes checked yearly, last eye exam . Needs to make appt , denies retinopathy. Denies neuropathy,not sees podiatry. Denies nephropathy, on KRISTEN/ARB. Has HLD, on statin. Denies CAD. Had diabetes education. [facility] Medical History (Updated 10/08/23 @ 11:[address], LDN) Prostate cancer Abnormal PSA COPD (chronic obstructive pulmonary disease) Type 2 diabetes mellitus with hyperglycemia Hypertension Vitamin D deficiency Plantar fasciitis Hypercholesterolemia Dental abscess Surgical History (Updated 08/13/23 @ 14:34 by Matthew Dang MD) H/O colonoscopy Hx of eye surgery History of bilateral cataract extraction History of hand surgery Family History Sister Breast cancer in situ Brother Alcohol abuse Prostate cancer CAD (coronary artery disease) Father Alcohol abuse Mother CAD (coronary artery disease) Brother Prostate cancer Brother Prostate cancer Social History Household Members: Spouse and Family Household Members Other:: , older daughter Housing: House Are you a primary transitional care nurse to a significant other at home: No Do you presently have visiting nurse or other home services: No Alcohol intake: never Patient Tobacco Use Status: Former Tobacco user Quit Date: 2017 Tobacco use type: Cigarette Years Smoked: stopped 2017 e-Cigarette/Vaping Use: Never Used Second Hand Smoke Exposure: No service: No Current occupational status: employed Cognitive needs: No Hearing needs: No Vision needs: Yes Physical Exam Absence of Cushingoid features. Absence of acromegalic features. Neck exam reveals nl size thyroid about 15 gms. No thyroid nodules palpable. No carotid bruits present. Lungs CTA. Heart S1 S2, Reg R/R. No M/R/ G. Skin exam reveals absence of vitiligo or acanthosis nigricans. Abdominal exam reveals Soft NT/ND with NA BS. No organomegaly present. Neck Other: . Extrem Other: Visual exam of foot performed. No ulcerations or open lesions. No onchomycosis, no callouses.Pulses 2 + distally Sensation intact to monofilament exam. Vibratory sensation sensed is Decreased with 128 Hz tuning fork Assessment & Plan Assessment & Plan (1) Type 2 diabetes mellitus with hyperglycemia: Code(s): E11.65 - Type 2 diabetes mellitus with hyperglycemia Plan: This is a 68-year-old male with history of type 2 diabetes being treated metformin, Trulicity and basal insulin with excellent improved glycemic control and no known microvascular or macrovascular complications Plan is to continue the current regimen. At This point, patient returned to the care of his primary care provider and returned back to endocrinology should his HbA1c deteriorate Medications: New insulin glargine (Basaglar KwikPen U-100 Insulin) 12 units (0.12 mL) subcut QAM 15 mL 3RF E11.65 - Type 2 diabetes mellitus with hyperglycemia Refilled insulin aspart U-100 (Novolog FlexPen U-100 Insulin aspart) 8 units (0.08 mL) subcut TID 15 mL 5RF dulaglutide (Trulicity) 0.75 mg (0.5 mL) subcut QWEEK 2 mL 4RF metformin 500 mg PO BID 180 tabs 2RF Coding Level of Care Code Est Pt Level 4 (99660) Diagnoses Type 2 diabetes mellitus with hyperglycemia E11.65
[2023-10-16 08:48] VITALS: BP 104/64; PULSE 70; BMI 25.0
[2023-10-16 09:00] LABS: Glucose, Whole Blood 136 mg/dL (60-115)
== END 2023-10-16 09:11 | disposition home or self-care (01) ==
PROVIDERS: PCP Internal Medicine; Visit Provider Internal Medicine Endocrinology, Diabetes & Metabolism
DX: E11.65 Type 2 diabetes mellitus with hyperglycemia (principal)
CPT/HCPCS: 99214

== ENCOUNTER → 2023-10-16 08:46 | Outpatient (BNVA) | payer MEDICARE, SELFPAY | PROVIDERS: PCP Internal Medicine; Visit Provider Internal Medicine Endocrinology, Diabetes & Metabolism | DX: E11.65 Type 2 diabetes mellitus with hyperglycemia (principal) | CPT/HCPCS: 82947; 83036; 99212 ==

== ENCOUNTER 2023-10-17 14:35 | Outpatient (AMB) | payer MEDICARE, SELFPAY ==
[2023-10-17 14:58] VITALS: BP 102/58; PULSE 80; RESP 16; O2SAT 97; BMI 24.5
--- NOTE | 2023-10-17 14:58 | A.OFFPC_ITS ---
Vital Signs 10/17/23 14:58 Height 5 ft 2.5 in Weight 136 lb BMI 24.5 BP 102/58 L Blood Pressure Location Lt brachial Position Sitting Respiration 16 Pulse 80 Pulse Source Pulse Oximeter Pulse Oximetry (%) 97 Intake Visit Reasons: Pain in side going down to leg Intake Note: Pt is here for right left sciatica pain for more than a week. Cigar Head Puncher Required: No Accompanied by: Spouse Allergies atorvastatin Allergy (Unknown, Verified 10/17/23 15:48) Rash pencillin Allergy (Unknown, Uncoded 10/17/23 15:00) Rash Tobacco use date assessed: 11/26/22 HPI Pain in side going down to leg HPI Details Patient is a 68-year-old male here today for problem visit. He reports having pain radiating down his right leg over the last 2 weeks. Of note has a history of lumbar disc herniation that needed surgery years ago. He denies any acute injury to his lower back recently. [facility] Medical History Prostate cancer Abnormal PSA COPD (chronic obstructive pulmonary disease) Type 2 diabetes mellitus with hyperglycemia Hypertension Vitamin D deficiency Plantar fasciitis Hypercholesterolemia Dental abscess Surgical History H/O colonoscopy Hx of eye surgery History of bilateral cataract extraction History of hand surgery Family History Sister Breast cancer in situ Brother Alcohol abuse Prostate cancer CAD (coronary artery disease) Father Alcohol abuse Mother CAD (coronary artery disease) Brother Prostate cancer Brother Prostate cancer Social History Household Members: Spouse and Family Household Members Other:: , older daughter Housing: House Are you a primary restorative care technician to a significant other at home: No Do you presently have visiting nurse or other home services: No Alcohol intake: never Patient Tobacco Use Status: Former Tobacco user Quit Date: 2017 Tobacco use type: Cigarette Years Smoked: stopped 2017 e-Cigarette/Vaping Use: Never Used Second Hand Smoke Exposure: No service: No Current occupational status: employed Cognitive needs: No Hearing needs: No Vision needs: Yes Questionnaire PHQ-9 Over the last 2 weeks, how often have you been bothered by any of the following problems? 1. Little interest or pleasure in doing things: not at all 2. Feeling down, depressed, or hopeless: not at all 3. Trouble falling or staying asleep, or sleeping too much: not at all 4. Feeling tired or having little energy: not at all 5. Poor appetite or overeating: not at all 6. Feeling bad about yourself - or that you are a failure or have let yourself or your family down: not at all 7. Trouble concentrating on things, such as reading the newspaper or watching television: not at all 8. Moving or speaking so slowly that other people could have noticed. Or the opposite - being so fidgety or restless that you have been moving around a lot more than usual: not at all 9. Thoughts that you would be better off or of hurting yourself in some way: not at all Total score: 0 Depression Screening Interpretation: Negative Depression Screening Done: Yes 16686 - PHQ-9 Billing: Yes Source: Developed by Drs. Abiel Mireles, Katherin Marquis, Tez Nieves and colleagues, with an educational mercy from [employer]. Thrive Questionnaire Date Thrive assessed: 10/17/23 I am a: Patient What is your living situation today?: I have a steady place to live Within the past 12 months, did the food you bought not last and you didn't have the money to get more?: Never true Within the past 12 months, did you worry whether your food would run out before you got money to buy more?: Never true Do you have trouble paying for medicines?: No Do you have trouble getting transportation to medical appointments?: No Do you have trouble paying your heating and electricity bill?: No Do you have trouble taking care of your child, family member or friend?: No Do you have trouble with day-to-day activities such as bathing, preparing meals, shopping, managing finances, etc.?: No Are you currently unemployed and looking for a job?: No Are you interested in more education?: No Please select the resources that you would like help with: None Currently or been in a relationship where the following occur: no concerns reported AUDIT C Alcohol Use Questionnaire (AUDIT-C) 1. How often do you have a drink containing alcohol?: Never 3. How often do you have six or more drinks on one occasion?: Never Total Score: 0 KYLE-7 AMB Questionnaire KYLE-7 Date KYLE - 7 assessed: 10/17/23 Feeling nervous, anxious, or on edge: 0 = Not at all Not being able to stop or control worryin = Not at all Worrying too much about different things: 0 = Not at all Trouble relaxin = Not at all Being so restless that it is hard to sit still: 0 = Not at all Becoming easily annoyed or irritable: 0 = Not at all Feeling afraid as if something awful might happen: 0 = Not at all Total KYLE-7 score (0-4 normal; 5-9 mild; 10-14 moderate; 15-21 severe): 0 Source: Developed by Drs. Abiel Mireles, Katherin Marquis, Tez Nieves and colleagues, with an educational mercy from [employer]. KYLE-7 Assessment Billing KYLE-7 Assessment Tool: KYLE-7 Assessment 25281 Review of Systems Const Denies headache(s) Eyes Denies loss of vision ENT Denies vertigo, Denies dizziness, Denies headache(s) and Denies sore throat Card Denies chest pain, Denies leg edema and Denies lightheadedness Resp Denies cough, Denies hemoptysis and Denies wheezing GI Denies abdominal pain, Denies melena, Denies constipation, Denies diarrhea and Denies vomiting Denies dysuria, Denies urinary frequency and Denies urinary urgency Musc Denies arthralgias, Denies joint swelling, Denies numbness and Denies tingling Neuro Denies Abnormal speech present, Denies behavioral changes, Denies vertigo, Denies dizziness, Denies headache(s), Denies loss of vision, Denies memory loss, Denies numbness and Denies tingling Psych Denies anxiety, Denies behavioral changes, Denies depression, Denies memory loss and Denies panic attacks Fermin/Lymph Denies easy bleeding and Denies easy bruising Aller/Immun Denies wheezing Physical exam (Primary Care) Vital Signs: Last Vital Signs Pulse 80 10/17/23 14:58 Resp 16 10/17/23 14:58 BP 102/58 L 10/17/23 14:58 Pulse Ox 97 10/17/23 14:58 BMI result Body Mass Index 24.5 Tobacco/Smoking Status: Tobacco use Status Tobacco use date assessed 11/26/22 10/17/23 15:04 Patient Tobacco Use Status Former Tobacco user 10/17/23 15:04 Tobacco use type Cigarette 10/17/23 15:04 e-Cigarette/Vaping Use Never Used 10/17/23 15:04 PHQ-9: PHQ-9 Score PHQ-9: Total score 0 10/17/23 15:45 Depression Screening Interpretation: Negative Thrive Assessment: Date of Thrive Assessment Date Thrive assessed 10/17/23 10/17/23 15:04 Currently or been in a relationship where the following occur: no concerns reported Const General: healthy appearing, no acute distress, alert and awake Nutritional Appearance: well nourished Orientation/consciousness: oriented to person, oriented to place and oriented to time HENMT Ears: TM's normal bilaterally General nose exam: Normal nasal mucous membranes and turbinates present Eyes Conjunctivae: conjunctivae normal Sclerae: sclerae normal Pupils: Equal, round and reactive pupils present Neck Neck: Yes no lymphadenopathy and Yes no JVD Thyroid: Thyroid normal Carotids: no bruits Resp Effort & Inspection: normal respiratory effort and not tachypneic Auscultation: no crackles, no rales, no rhonchi and no wheezes Cardio Rate: regular rate Rhythm: regular rhythm Heart sounds: no murmurs and normal S1 and S2 GI Palpation (GI): Soft to palpation, nontender, no hepatomegaly and no splenomegaly Auscultation: normal bowel sounds Back/Spine/Pelvis Other: AMBULATING WITH AN ANTALGIC GAIT. FULL RANGE OF MOTION OF THE LUMBAR SPINE 5/5 STRENGTH TO BILATERAL LOWER EXTREMITIES Skin General skin exam: no rashes or lesions noted and dry skin Neuro General: oriented to person, oriented to place and oriented to time Cranial nerves: Yes Equal, round and reactive pupils present Speech: No Abnormal speech present Gait exam (Neuro): Normal gait present Motor exam (neuro): no tremor noted Extrem Right upper extremity: full ROM Left upper extremity: full ROM Right lower extremity: full ROM; no edema Left lower extremity: full ROM; no edema Psych Mental Status: mental status grossly normal Speech and movement: Normal speech and movement present Affect: normal affect Attitude: cooperative Thought process: Normal thought process present Assessment and Plan Assessment & Plan (1) Lumbar radiculopathy: Code(s): M54.16 - Radiculopathy, lumbar region Plan: Does have a history of lumbar disc herniation requiring surgery. Patient's signs symptoms most consistent with a lumbar radiculopathy. Will send in prednisone taper and muscle relaxer. Will likely benefit from physical therapy. Will send for x-ray to evaluate for any advanced arthritis or disc height loss. Orders: Orders XR lumbar spine 2-3V 10/18/23 M54.16 - Radiculopathy, lumbar region PT Evaluation and Treatment 10/17/23 M51.9 - Unspecified thoracic, thoracolumbar and lumbosacral intervertebral disc disorder, M54.16 - Radiculopathy, lumbar region Medications: New prednisone see taper instructions 10 mg PO DIRECTED 6 days 12 tabs 0RF M54.16 - Radiculopathy, lumbar region baclofen 10 mg PO BEDTIME 10 days 10 tabs 0RF M54.16 - Radiculopathy, lumbar region Coding Level of Care Code Est Pt Level 3 (97821) Diagnoses Lumbar radiculopathy M54.16 Additional Codes KYLE-7 Assessment Billing - KYLE-7 Assessment Tool: KYLE-7 Assessment 79092 ([id number])
== END 2023-10-17 15:59 | disposition home or self-care (01) ==
PROVIDERS: PCP Internal Medicine; Visit Provider Physician Assistant
DX: M54.16 Radiculopathy, lumbar region (principal)
CPT/HCPCS: 99213

== ENCOUNTER 2023-10-18 10:02 | Outpatient (REF) | payer MEDICARE, SELFPAY ==
--- NOTE | ~2023-10-18 | XR_ITS ---
EXAMINATION: XR LUMBOSACRAL SPINE CLINICAL INFORMATION: Lumbar radiculopathy COMPARISON: 01/25/2010 TECHNIQUE: Three views of the lumbosacral spine. FINDINGS: Minor leftward scoliosis again seen. Lumbar lordotic straightening. 5 lumbar type vertebral bodies are identified and are maintained in height. Multilevel spurring. Minor L5-S1 disc space narrowing. Pedicles and SI joints are intact. Vascular calcifications. Nonspecific bowel pattern. XR/XR lumbar spine 2-3V IMPRESSION: Minor scoliosis, lumbar lordotic straightening and mild degenerative type changes.
== END 2023-10-18 10:03 | disposition home or self-care (01) ==
LOC: HO.XRAY 10:02
PROVIDERS: PCP Internal Medicine; Visit Provider Physician Assistant
DX: M54.16 Radiculopathy, lumbar region (principal)
CPT/HCPCS: 72100

== ENCOUNTER 2023-11-22 14:30 | Outpatient (AMB) | payer MEDICARE, SELFPAY ==
[2023-11-22 14:43] VITALS: BP 100/72; PULSE 67; O2SAT 97; BMI 24.3
--- NOTE | 2023-11-22 14:43 | MHC.PC.OV ---
Vital Signs 11/22/23 14:43 11/22/23 15:19 Height 5 ft 2.5 in Weight 135 lb BMI 24.3 BP 100/72 128/70 Blood Pressure Location Lt brachial Lt brachial Position Sitting Sitting Pulse 67 Pulse Source Pulse Oximeter Pulse Oximetry (%) 97 Oxygen Delivery Method Room Air Intake Visit Reasons: 3 Month F/U Object Oriented Developer Required: No Allergies atorvastatin Allergy (Unknown, Verified 11/22/23 14:45) Rash pencillin Allergy (Unknown, Uncoded 11/22/23 14:45) Rash Medication List - Last Reconciled 11/22/23 by Matthew Dang MD baclofen 10 mg PO BEDTIME 10 days blood sugar diagnostic (FreeStyle Lite Strips) As directed check the BS TID blood-glucose meter (FreeStyle Lite Meter kit) As directed ciclopirox 8% 1 appl topical BEDTIME 4 weeks cyclobenzaprine 10 mg PO BID PRN dulaglutide (Trulicity) 0.75 mg (0.5 mL) subcut QWEEK flash glucose scanning reader (FreeStyle Ashley 2 Dillon) As directed flash glucose sensor (FreeStyle Ashley 2 Sensor kit) As directed every 2 weeks flash glucose sensor (FreeStyle Ashley 2 Sensor kit) As directed insulin aspart U-100 (Novolog FlexPen U-100 Insulin aspart) 8 units (0.08 mL) subcut TID insulin glargine (Basaglar KwikPen U-100 Insulin) 12 units (0.12 mL) subcut QAM lancets (FreeStyle Lancets) As directed check BS TID losartan 25 mg PO DAILY 90 days metformin 500 mg PO BID methylcellulose (laxative) (Citrucel) 1,000 mg (2 x 500 mg) PO DAILY pen needle, diabetic (1st Tier Unifine Pentips Plus) USE DIRECTED 5X PER DAY prednisone 10 mg PO DIRECTED 6 days rosuvastatin 5 mg PO DAILY Tobacco use date assessed: 11/22/23 Fall risk assessment: No Falls in past year Last assessed Fall Risk: 11/22/23 Dental Screening Dental Screen Date: 11/22/23 HPI 3 Month F/U HPI Details 68-year-old male with a history of prostate cancer, diabetes mellitus hypertension hypercholesterolemia and overactive bladder last seen in August 2023. Patient's colonoscopy is up-to-date August 2023 noted lumbar spine x-ray in October 2023 scoliosis lumbar lordotic straightening and mild degenerative changes. Patient complained of right leg sciatic pain for more than a week. Patient has also seen Dr. Tellez endocrinology on insulin glargine, Basaglar, NovoLog Trulicity and metformin. Patient has seen the Urology 09/25/2023 completed external beam radiation therapy December 2021 can not take trospium. PAteint has been having this pain on the R lower back radiating to the R sciatic nerve to the R leg with weakness. has been doing Physical therapy but no relief [facility] Medical History (Updated 11/22/23 @ 15:20 by Matthew Dang MD) Low back pain Prostate cancer Abnormal PSA COPD (chronic obstructive pulmonary disease) Type 2 diabetes mellitus with hyperglycemia Hypertension Vitamin D deficiency Plantar fasciitis Hypercholesterolemia Dental abscess Surgical History H/O colonoscopy Hx of eye surgery History of bilateral cataract extraction History of hand surgery Family History Sister Breast cancer in situ Brother Alcohol abuse Prostate cancer CAD (coronary artery disease) Father Alcohol abuse Mother CAD (coronary artery disease) Brother Prostate cancer Brother Prostate cancer Social History Household Members: Spouse and Family Household Members Other:: , older daughter Housing: House Are you a primary career consultant to a significant other at home: No Do you presently have visiting nurse or other home services: No Alcohol intake: never Patient Tobacco Use Status: Former Tobacco user Quit Date: 2017 Tobacco use type: Cigarette Years Smoked: stopped 2017 e-Cigarette/Vaping Use: Never Used Second Hand Smoke Exposure: No service: No Current occupational status: employed Cognitive needs: No Hearing needs: No Vision needs: Yes Questionnaire Thrive Questionnaire Date Thrive assessed: 10/17/23 AUDIT C Alcohol Use Questionnaire (AUDIT-C) 1. How often do you have a drink containing alcohol?: Never 3. How often do you have six or more drinks on one occasion?: Never Total Score: 0 KYLE-7 AMB Questionnaire KYLE-7 Date KYLE - 7 assessed: 10/17/23 Source: Developed by Drs. Abiel L. ChiKatherin ayala, Tez Nieves and colleagues, with an educational mercy from [employer]. Physical exam (Primary Care) Vital Signs: Last Vital Signs Pulse 67 11/22/23 14:43 BP 100/72 11/22/23 14:43 Pulse Ox 97 11/22/23 14:43 Oxygen Delivery Method Room Air 11/22/23 14:43 BMI result Body Mass Index 24.3 Tobacco/Smoking Status: Tobacco use Status Tobacco use date assessed 11/22/23 11/22/23 14:44 Patient Tobacco Use Status Former Tobacco user 11/22/23 14:44 Tobacco use type Cigarette 11/22/23 14:44 e-Cigarette/Vaping Use Never Used 11/22/23 14:44 Thrive Assessment: Date of Thrive Assessment Date Thrive assessed 10/17/23 11/22/23 14:44 Const General: alert; No acute distress Eyes Conjunctivae: conjunctivae normal Resp Auscultation: clear to auscultation bilaterally Cardio Rate: regular rate Rhythm: regular rhythm GI Inspection: Yes normal to inspection Extrem General: Yes normal to inspection and No edema Assessment and Plan Assessment & Plan (1) Type 2 diabetes mellitus with hyperglycemia: Code(s): E11.65 - Type 2 diabetes mellitus with hyperglycemia Plan: Decrease the amount of carbohydrate intake, pasta, bread, rice and potatoes are all sugar and that is aside from all the sweet stuff, remember that fruits are good but they are Sweet also. Hemoglobin A1c goal of less than 7.0. Patient has seen endocrinology on Trulicity Basaglar and NovoLog FlexPen metformin is 500 mg twice a day (2) Hypertension: Code(s): I10 - Essential (primary) hypertension Plan: Continue with blood pressure medication. Decrease salt intake and exercise takes losartan 25 mg once a day (3) COPD (chronic obstructive pulmonary disease): Code(s): J44.9 - Chronic obstructive pulmonary disease, unspecified Plan: Continue with inhalers as needed (4) Hypercholesterolemia: Code(s): E78.00 - Pure hypercholesterolemia, unspecified Plan: Avoid fried foods, chicken skin, eggs, butter margarine, pastries and meat. Be it pork or beef they have a lot of cholesterol patient is not able to tolerate the statins LDL goal of less than 100 mg and triglyceride of less than 150 (5) Prostate cancer: Comment: [facility] prostate cancer external beam radiation January 2022, [facility] therapy Code(s): C61 - Malignant neoplasm of prostate Plan: Continue to follow-up with urology (6) Lumbar radiculopathy: Code(s): M54.16 - Radiculopathy, lumbar region (7) Right flank pain: Code(s): R10.9 - Unspecified abdominal pain (8) Onychomycosis: Code(s): B35.1 - Tinea unguium Orders: Orders US abdomen complete Today R10.9 - Unspecified abdominal pain Medications: New cyclobenzaprine 10 mg PO BID PRN 30 tabs 0RF muscle spasm R10.9 - Unspecified abdominal pain ciclopirox 8% 1 appl topical BEDTIME 6.6 mL 0RF 4 weeks B35.1 - Tinea unguium Coding Level of Care Code Est Pt Level 4 (66267) Diagnoses Type 2 diabetes mellitus with hyperglycemia E11.65 Hypertension I10 COPD (chronic obstructive pulmonary disease) J44.9 Hypercholesterolemia E78.00 Prostate cancer C61 Lumbar radiculopathy M54.16 Right flank pain R10.9 Onychomycosis B35.1
[2023-11-22 15:19] VITALS: BP 128/70
== END 2023-11-22 15:25 | disposition home or self-care (01) ==
PROVIDERS: PCP Internal Medicine; Visit Provider Internal Medicine
DX: E11.65 Type 2 diabetes mellitus with hyperglycemia (principal); J44.9 Chronic obstructive pulmonary disease, unspecified; C61 Malignant neoplasm of prostate; I10 Essential (primary) hypertension; E78.00 Pure hypercholesterolemia, unspecified; M54.16 Radiculopathy, lumbar region; R10.9 Unspecified abdominal pain; B35.1 Tinea unguium
CPT/HCPCS: 99214

== ENCOUNTER 2023-12-03 10:23 | Outpatient (AMB) | payer MEDICARE, SELFPAY ==
--- NOTE | 2023-12-03 10:54 | A.OFFVIS_ITS ---
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 Name: Pt's Information Interpreted: clinical only Accompanied by: Spouse Allergies atorvastatin Allergy (Unknown, Verified 11/22/23 14:45) Rash pencillin Allergy (Unknown, Uncoded 11/22/23 14:45) Rash HPI Comprehensive Diabetes Asmnt Most Recent Diabetes Results: Microalb/Creat Ratio TNP 05/21/23 Cholesterol 129 mg/dL 05/21/23 HDL Cholesterol 38 mg/dL 05/21/23 Triglycerides 62 mg/dL 05/21/23 Creatinine 1.29 mg/dL (0.5-1.4) 05/21/23 Blood Urea Nitrogen 17 mg/dL (9-16) H 05/21/23 Sodium 141 mmol/L (135-145) 05/21/23 Potassium 4.0 mmol/L (3.3-5.1) 05/21/23 Chloride 105 mmol/L (96-108) 05/21/23 Carbon Dioxide 27 mmol/L (22-29) 05/21/23 Calcium 10.2 mg/dL (8.4-10.2) 05/21/23 AST 16 U/L (5-37) 05/21/23 ALT 17 U/L (0-40) 05/21/23 Total Protein 7.3 g/dL (6.5-8.0) 05/21/23 Albumin 4.2 g/dL (3.5-5.0) 05/21/23 PFSH Medical History (Updated 11/22/23 @ 15:20 by Matthew Dang MD) Low back pain Prostate cancer Abnormal PSA COPD (chronic obstructive pulmonary disease) Type 2 diabetes mellitus with hyperglycemia Hypertension Vitamin D deficiency Plantar fasciitis Hypercholesterolemia Dental abscess Surgical History H/O colonoscopy Hx of eye surgery History of bilateral cataract extraction History of hand surgery Family History Sister Breast cancer in situ Brother Alcohol abuse Prostate cancer CAD (coronary artery disease) Father Alcohol abuse Mother CAD (coronary artery disease) Brother Prostate cancer Brother Prostate cancer Social History Household Members: Spouse and Family Household Members Other:: , older daughter Housing: House Are you a primary senior caregiver to a significant other at home: No Do you presently have visiting nurse or other home services: No Alcohol intake: never Patient Tobacco Use Status: Former Tobacco user Quit Date: 2017 Tobacco use type: Cigarette Years Smoked: stopped 2017 e-Cigarette/Vaping Use: Never Used Second Hand Smoke Exposure: No service: No Current occupational status: employed Cognitive needs: No Hearing needs: No Vision needs: Yes Assessment & Plan Assessment & Plan (1) Type 2 diabetes mellitus with hyperglycemia: Code(s): E11.65 - Type 2 diabetes mellitus with hyperglycemia Plan: Learning objectives: The patient was provided with verbal and written education on the following topics as outlined below. Assess patient education level/literacy/barriers Patient questions/concerns, patient using freestyle Ashley 2 to test glucose, does have backup freestyle Lite meter Patient above target 10% Patient at target 90% Patient below target 0% Average glucose for the last 2 weeks 134 mg/dL Patient does have some hypoglycemic events between 3-6 a.m., patient has been taking Basaglar 15 units, recommended to reduce Basaglar to 10 units No change to Humalog sliding scale Patient's last A1c 7.3% on 10/16/2023 The patient met all learning objectives and was able to verbalize understanding and provide teach back of education topics discussed . The patient was provided with the opportunity to ask questions and all questions were answered. Topics covered in today?s session included: Insulin/Injectables (If applicable) * Storage/care of insulin?? * Injection sites? * Site rotation? * Onset, peak, duration * Drawing up insulin? * Injecting insulin/other injectables? * Sharps disposal Continuous blood glucose monitoring (if applicable) Hypoglycemia and Hyperglycemia * Signs and symptoms? * Causes?? * Treatment? * Preventing hypoglycemia? * When to seek medical attention * Blood glucose targets and how you feel when your blood glucose is in and out of your target ranges. * Monitoring and knowing your A1C. * What can make blood glucose go up and down and preventing high and low blood glucose. * Review of blood sugar targets in expected goal range and outside of expected goal range. * Problem solving and preventing hyper/hypoglycemia. * Sick day management of diabetes. * Using blood sugar results in decision making process in managing diabetes. ?Patient was receptive to information provided and participated in the discussion. Asked?appropriate questions and demonstrated good understanding of the topics discussed.? ? Educational Materials: The patient was provided with the following written educational materials: Target Goal handout Smart Goal: Patient will work on self administering insulin Patient Response to instructions: Comprehension of Instructions: Good Readiness to make changes:? Contemplation How confident they feel about making changes: Positive Patient Instructions: Patient will follow-up with family life educator in 4 months Coding Level of Care Code Est Pt Level 1 (12447) Diagnoses Type 2 diabetes mellitus with hyperglycemia E11.65
== END 2023-12-03 10:56 | disposition home or self-care (01) ==
PROVIDERS: PCP Internal Medicine; Visit Provider Registered Nurse Diabetes Educator
DX: E11.65 Type 2 diabetes mellitus with hyperglycemia (principal)

== ENCOUNTER → 2023-12-03 10:23 | Outpatient (BNVA) | payer MEDICARE, SELFPAY | PROVIDERS: PCP Internal Medicine; Visit Provider Registered Nurse Diabetes Educator | DX: E11.65 Type 2 diabetes mellitus with hyperglycemia (principal) | CPT/HCPCS: 99211 ==

== ENCOUNTER 2023-12-06 13:00 | Outpatient (RCR) | payer MEDICARE, SELFPAY ==
--- NOTE | 2023-11-08 14:02 | MHC.PT.EP ---
[facility] [place] [facility] [place] [facility] [place] [facility] [address] Emeka Aguayo [address] [phone] F: [phone] F: [phone] F: [phone] F: [phone] Physical Therapy Plan of Care Date of Evaluation: 11/08/23 Date of Surgery: N/A Diagnosis: thoracolumbar and lumbosacral intervertebral disc (RL) Assessment: pt is a 68 y/o male presenting to physical therapy w/ referring diagnosis of thoracolumbar and lumbosacral intervertebral disc. Impairments include pain, decreased range of motion, decreased strength, impaired functional mobility, impaired postural awareness, and altered ambulation mechanics. pt is a good candidate for skilled PT due to age, potential remediation of impairments, typical disease/condition progression and prognosis, comorbidities, and motivation. pt would benefit from skilled PT intervention to provide a tailored strengthening and stretching exercise program, functional training, gait training, postural re-training, neuromuscular re-education, modalities as needed for pain, equipment safety demonstration. Frequency and Duration: The patient will be seen 2x/wk for 4 wks Short Term Goals: pt will be I w/ HEP to promote self-management of condition. pt will demo proper sitting posture w/ lumbar roll to promote neutral spine w/ seated ADLs. 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 pt will improve lumbar flexion to at least 75% to promote ease in lower body dressing. Treatment Plan: Modalities to reduce pain, spasms and effusion. Manual therapy to restore motion and function. Therapeutic exercise to improve strength and flexibility. Neuromuscular re-education for posture and balance. Therapeutic activities to return to functional activities of daily living. Electronically signed by: Paige Hayes PT, DPT Please sign and return to therapist. Thank you for your referral.
--- NOTE | 2023-12-12 09:25 | MHC.PT.DC ---
[facility] [place] Office [place] Office [place] Office [address] Emeka Aguayo [address] [facility] [place] [phone] F: [phone] F: [phone] F: [phone] F: [phone] Physical Therapy Discharge Report Diagnosis: thoracolumbar and lumbosacral intervertebral disc (RL) Date of Surgery: N/A Date of Evaluation: 11/08/23 Date of Discharge: 12/12/23 Treatments to Date: 7 Cancellations to Date: 2 No Shows to Date: 0 Discharge Status: Improved Function Independent with HEP Discharge Summary: The patient overall has having little to no pain and very infrequent radicular symptoms. He is independent with his home exercise program. The patient is discharged from this physical therapy plan of care to his home exercise program. Electronically signed by: Paige Hayes PT, DPT Please sign and return to therapist. Thank you for your referral.
== END 2023-12-12 09:25 | disposition home or self-care (01) ==
LOC: HO.PT 13:00
PROVIDERS: PCP Internal Medicine; Visit Provider Physician Assistant
DX: M51.9 Unspecified thoracic, thoracolumbar and lumbosacral intervertebral disc disorder (principal); M54.16 Radiculopathy, lumbar region
CPT/HCPCS: 97110; 97162

== ENCOUNTER 2023-12-11 08:10 | Outpatient (REF) | payer MEDICARE, SELFPAY ==
--- NOTE | ~2023-12-11 | US_ITS ---
EXAMINATION: US ABDOMEN COMPLETE CLINICAL INFORMATION: Other specified abnormal findings of blood chemistry. COMPARISON: CT abdomen and pelvis 05/05/2018. Ultrasound abdomen 01/15/2007. TECHNIQUE: Real-time imaging of the abdominal viscera. Technically difficult study secondary to bowel gas. FINDINGS: PANCREAS: ABDOMINAL AORTA: The proximal, mid, and distal segments are normal in caliber. INFERIOR VENA CAVA: Visualized portions are normal. LIVER: Normal. The liver is normal in size. The liver contour is normal. Parenchymal echogenicity is normal. No focal hepatic lesion. There is no intrahepatic biliary duct dilatation seen. GALLBLADDER: Normal. The gallbladder is physiologically distended without evidence of stones, sludge, polyps, wall thickening or pericholecystic fluid. COMMON BILE DUCT: Normal in caliber measuring 0.3 cm in diameter. RIGHT KIDNEY: Normal. No hydronephrosis. No renal calculi or focal parenchymal lesions. The kidney measures 9.3 cm in maximum dimension. LEFT KIDNEY: Normal. No hydronephrosis. No renal calculi or focal parenchymal lesions. The kidney measures 9.5 cm in maximum dimension. SPLEEN: Normal. The spleen measures 8.0 cm in maximum dimension. FREE FLUID: None. US/US abdomen complete IMPRESSION: Unremarkable examination, with imaging, in particular of the pancreas, technically limited.
== END 2023-12-11 08:11 | disposition home or self-care (01) ==
LOC: HO.US 08:10
PROVIDERS: PCP Internal Medicine; Visit Provider Internal Medicine
DX: R10.9 Unspecified abdominal pain (principal)
CPT/HCPCS: 76700

== ENCOUNTER 2023-12-23 12:57 | Outpatient (AMB) | payer MEDICARE, SELFPAY ==
--- NOTE | 2023-12-23 13:05 | MHC.PC.OV ---
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 Allergies atorvastatin Allergy (Unknown, Verified 12/23/23 13:05) Rash pencillin Allergy (Unknown, Uncoded 12/23/23 13:05) Rash Tobacco use date assessed: 12/23/23 Fall risk assessment: No Falls in past year Last assessed Fall Risk: 12/23/23 Dental Screening Dental Screen Date: 12/23/23 Did you have a dental visit in the last 12 months?: No Did you have a dental problem in the last 6 months where you did not have access to dental care?: No HPI Back and leg pain HPI Details 68-year-old male with uncontrolled diabetes mellitus hypertension COPD hypercholesterolemia history of prostate cancer coming in for follow-up. Patient has lumbar radiculopathy also. Last seen in November 2023. Up-to-date with colonoscopy. Patient had a recent negative ultrasound of the abdomen . Patient has been sent for physical therapy. patient zstill starts from The R lower back radiating to R leg weakness and numbness. Pt did not help and made worse [facility] Medical History (Updated 11/22/23 @ 15:20 by Matthew Dang MD) Low back pain Prostate cancer Abnormal PSA COPD (chronic obstructive pulmonary disease) Type 2 diabetes mellitus with hyperglycemia Hypertension Vitamin D deficiency Plantar fasciitis Hypercholesterolemia Dental abscess Surgical History H/O colonoscopy Hx of eye surgery History of bilateral cataract extraction History of hand surgery Family History Sister Breast cancer in situ Brother Alcohol abuse Prostate cancer CAD (coronary artery disease) Father Alcohol abuse Mother CAD (coronary artery disease) Brother Prostate cancer Brother Prostate cancer Social History Household Members: Spouse and Family Household Members Other:: , older daughter Housing: House Are you a primary healthcare sales representative to a significant other at home: No Do you presently have visiting nurse or other home services: No Alcohol intake: never Patient Tobacco Use Status: Former Tobacco user Quit Date: 2017 Tobacco use type: Cigarette Years Smoked: stopped 2017 e-Cigarette/Vaping Use: Never Used Second Hand Smoke Exposure: No service: No Current occupational status: employed Cognitive needs: No Hearing needs: No Vision needs: Yes Questionnaire Thrive Questionnaire Date Thrive assessed: 10/17/23 AUDIT C Alcohol Use Questionnaire (AUDIT-C) 1. How often do you have a drink containing alcohol?: Never 3. How often do you have six or more drinks on one occasion?: Never Total Score: 0 KYLE-7 AMB Questionnaire KYLE-7 Date KYLE - 7 assessed: 10/17/23 Source: Developed by Drs. Abiel Mireles, Katherin Marquis, Tez Nieves and colleagues, with an educational mercy from [employer]. Physical exam (Primary Care) Vital Signs: Last Vital Signs Pulse 90 12/23/23 13:08 BP 118/68 12/23/23 13:08 Pulse Ox 98 12/23/23 13:08 Oxygen Delivery Method Room Air 12/23/23 13:08 BMI result Body Mass Index 23.9 Tobacco/Smoking Status: Tobacco use Status Tobacco use date assessed 12/23/23 12/23/23 13:07 Patient Tobacco Use Status Former Tobacco user 12/23/23 13:07 Tobacco use type Cigarette 12/23/23 13:07 e-Cigarette/Vaping Use Never Used 12/23/23 13:07 Thrive Assessment: Date of Thrive Assessment Date Thrive assessed 10/17/23 12/23/23 13:07 Const General: alert; No acute distress Eyes Conjunctivae: conjunctivae normal Resp Auscultation: clear to auscultation bilaterally Cardio Rate: regular rate Rhythm: regular rhythm GI Inspection: Yes normal to inspection Back/Spine/Pelvis Other: Lower back pain on palpation limited elevation of the right leg to about 15 degrees no swelling no redness. Extrem General: Yes normal to inspection and No edema Assessment and Plan Assessment & Plan (1) Lumbar radiculopathy: Code(s): M54.16 - Radiculopathy, lumbar region (2) Prostate cancer: Comment: [facility] 9 prostate cancer external beam radiation January 2022, Kamlesh therapy Code(s): C61 - Malignant neoplasm of prostate Plan: Continue to follow-up with urology (3) Type 2 diabetes mellitus with hyperglycemia: Code(s): E11.65 - Type 2 diabetes mellitus with hyperglycemia Plan: Decrease the amount of carbohydrate intake, pasta, bread, rice and potatoes are all sugar and that is aside from all the sweet stuff, remember that fruits are good but they are Sweet also. Hemoglobin A1c goal of less than 7.0 on Trulicity 0.75 NovoLog and Basaglar metformin Orders: Orders MR lumbar spine wo con Today M54.16 - Radiculopathy, lumbar region Coding Level of Care Code Est Pt Level 4 (87735) Diagnoses Lumbar radiculopathy M54.16 Prostate cancer C61 Type 2 diabetes mellitus with hyperglycemia E11.65
[2023-12-23 13:08] VITALS: BP 118/68; PULSE 90; O2SAT 98; BMI 23.9
== END 2023-12-23 13:40 | disposition home or self-care (01) ==
PROVIDERS: PCP Internal Medicine; Visit Provider Internal Medicine
DX: M54.16 Radiculopathy, lumbar region (principal); C61 Malignant neoplasm of prostate; E11.65 Type 2 diabetes mellitus with hyperglycemia
CPT/HCPCS: 99214

== ENCOUNTER 2024-01-13 19:16 | Outpatient (REF) | payer MEDICARE, SELFPAY ==
--- NOTE | ~2024-01-13 | MR_ITS ---
EXAMINATION: MR LUMBAR SPINE WITHOUT CONTRAST CLINICAL INFORMATION: Lumbar radiculopathy. COMPARISON: Lumbar spine radiographs from 10/18/2023. TECHNIQUE: MRI of the lumbar spine was obtained using routine sequences without contrast. FINDINGS: Normal anatomic alignment. Normal, homogeneous marrow signal throughout. The vertebral body heights are maintained. The intervertebral discs are of normal height and signal. The conus medullaris terminates at the level of L1. The distal spinal cord is normal in appearance. No significant abnormalities of the paraspinal musculature. Limited evaluation of the intra-abdominal structures without significant abnormalities. The abdominal aorta is of normal contour and caliber. AXIAL SPINAL LEVELS: L1-L2: Normal annular contour. There is no facet joint arthropathy. There is no neural foraminal stenosis. There is no spinal canal stenosis. L2-L3: Normal annular contour. There is mild bilateral facet joint arthropathy. There is no neural foraminal stenosis. There is no spinal canal stenosis. L3-L4: Shallow diffuse disc bulge with superimposed left greater than right foraminal disc protrusions. There is mild to moderate bilateral facet joint arthropathy. There is mild to moderate bilateral neural foraminal stenosis. There is narrowing of the subarticular zones with no overt spinal canal stenosis centrally. L4-L5: Shallow diffuse disc bulge with superimposed left foraminal disc protrusion. There is mild bilateral facet joint arthropathy. There is moderate to severe left and moderate right neural foraminal stenosis. There is stenosis of the subarticular zones with mild spinal canal stenosis centrally. L5-S1: Moderate diffuse disc bulge. There is moderate bilateral facet joint arthropathy. There is a 1.4 cm T2 hyperintense synovial cyst medial to the right facet joint. There is severe left and moderate right neural foraminal stenosis. There is stenosis of the right worse than left subarticular zones with mild to moderate spinal canal stenosis centrally. MR/MR lumbar spine wo con IMPRESSION: Moderate multilevel degenerative spondyloarthropathy of the lumbar spine as described in detail above. Most notably, there are mild to moderate spinal canal stenoses at L4-L5 and L5-S1. There is a 1.4 cm synovial cyst medial to the right-sided L5-S1 facet joint. Narrowings/stenoses of the subarticular zones and moderate to severe neural foraminal stenoses from L3-S1.
== END 2024-01-13 19:17 | disposition home or self-care (01) ==
LOC: HO.MRI 19:16
PROVIDERS: PCP Internal Medicine; Visit Provider Internal Medicine
DX: M54.16 Radiculopathy, lumbar region (principal)
CPT/HCPCS: 72148

== ENCOUNTER 2024-02-19 10:18 | Outpatient (AMB) | payer MEDICARE, SELFPAY ==
[2024-02-19 10:26] VITALS: BP 108/68; PULSE 64; O2SAT 100; BMI 25.7
--- NOTE | 2024-02-19 10:26 | A.OFFPC_ITS ---
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 Accompanied by: Spouse Allergies atorvastatin Allergy (Unknown, Verified 02/19/24 10:42) Rash pencillin Allergy (Unknown, Uncoded 02/19/24 10:31) Rash Medication List - Last Reconciled 02/19/24 by Vishal Rogers PA-C baclofen 10 mg PO BEDTIME 10 days blood sugar diagnostic (FreeStyle Lite Strips) As directed check the BS TID blood-glucose meter (FreeStyle Lite Meter kit) As directed ciclopirox 8% 1 appl topical BEDTIME 4 weeks cyclobenzaprine 10 mg PO BID PRN dulaglutide (Trulicity) 0.75 mg (0.5 mL) subcut QWEEK flash glucose scanning reader (FreeStyle Ashley 2 [place]) As directed flash glucose sensor (FreeStyle Ashley 2 Sensor kit) As directed every 2 weeks flash glucose sensor (FreeStyle Ashley 2 Sensor kit) As directed insulin aspart U-100 (Novolog FlexPen U-100 Insulin aspart) 8 units (0.08 mL) subcut TID insulin glargine (Basaglar KwikPen U-100 Insulin) 12 units (0.12 mL) subcut QAM lancets (FreeStyle Lancets) As directed check BS TID losartan 25 mg PO DAILY 90 days metformin 500 mg PO BID methylcellulose (laxative) (Citrucel) 1,000 mg (2 x 500 mg) PO DAILY pen needle, diabetic (BD Ananya 2nd Gen Pen Needle) USE DIRECTED 5X PER DAY prednisone 10 mg PO DIRECTED 6 days rosuvastatin 5 mg PO DAILY Tobacco use date assessed: 12/23/23 Fall risk assessment: No Falls in past year Last assessed Fall Risk: 02/19/24 Dental Screening Dental Screen Date: 12/23/23 HPI Remove Cyst in Lower Back HPI Details Patient is a 68-year-old male here today for a pre op. Patient has a past medical history significant for type 2 diabetes, COPD, hyperlipidemia and hypertension. Patient is due for removal of a synovial cyst of his lumbar spine that may be causing his chronic lumbar spine pain. Surgery will be done by Dr. Yu No history of CVA, [place], of CHF . Patient had on any antiplatelet or anticoagulation therapy at this time. Type 2 diabetes: Has been somewhat suboptimally controlled, most recent A1c done in October of 2023 at 7.8. Laboratory Tests 05/21/23 06/20/23 10/16/23 06:45 10:46 09:09 RBC Hgb 13.0 L Potassium Hgb A1c (Clinic) 7.9 H 7.3 H Hemoglobin A1c % 02/19/24 11:27 RBC 3.89 L Hgb 12.0 L Potassium 4.1 Hgb A1c (Clinic) Hemoglobin A1c % 7.8 H [facility] Medical History (Updated 02/20/24 @ 12:39 by Vishal Rogers PA-C) Low back pain Prostate cancer Abnormal PSA COPD (chronic obstructive pulmonary disease) Type 2 diabetes mellitus with hyperglycemia Hypertension Vitamin D deficiency Plantar fasciitis Hypercholesterolemia Dental abscess Surgical History H/O colonoscopy Hx of eye surgery History of bilateral cataract extraction History of hand surgery Family History Sister Breast cancer in situ Brother Alcohol abuse Prostate cancer CAD (coronary artery disease) Father Alcohol abuse Mother CAD (coronary artery disease) Brother Prostate cancer Brother Prostate cancer Social History Household Members: Spouse and Family Household Members Other:: , older daughter Housing: House Are you a primary daycare provider to a significant other at home: No Do you presently have visiting nurse or other home services: No Alcohol intake: never Patient Tobacco Use Status: Former Tobacco user Quit Date: 2017 Tobacco use type: Cigarette Years Smoked: stopped 2017 e-Cigarette/Vaping Use: Never Used Second Hand Smoke Exposure: No service: No Current occupational status: employed Cognitive needs: No Hearing needs: No Vision needs: Yes Questionnaire Thrive Questionnaire Date Thrive assessed: 10/17/23 KYLE-7 AMB Questionnaire KYLE-7 Date KYLE - 7 assessed: 10/17/23 Source: Developed by Drs. Abiel Mireles, Katherin Marquis, Tez Nieves and colleagues, with an educational mercy from [employer]. Review of Systems Const Denies headache(s) Eyes Denies loss of vision ENT Denies vertigo, Denies dizziness, Denies headache(s) and Denies sore throat Card Denies chest pain, Denies leg edema and Denies lightheadedness Resp Denies cough, Denies hemoptysis and Denies wheezing GI Denies abdominal pain, Denies melena, Denies constipation, Denies diarrhea and Denies vomiting Denies dysuria, Denies urinary frequency and Denies urinary urgency Musc Denies arthralgias, Denies joint swelling, Denies numbness and Denies tingling Neuro Denies Abnormal speech present, Denies behavioral changes, Denies vertigo, D enies dizziness, Denies headache(s), Denies loss of vision, Denies memory loss, Denies numbness and Denies tingling Psych Denies anxiety, Denies behavioral changes, Denies depression, Denies memory loss and Denies panic attacks Fermin/Lymph Denies easy bleeding and Denies easy bruising Aller/Immun Denies wheezing Physical exam (Primary Care) Vital Signs: Last Vital Signs Pulse 64 02/19/24 10:26 BP 108/68 02/19/24 10:26 Pulse Ox 100 02/19/24 10:26 Oxygen Delivery Method Room Air 02/19/24 10:26 BMI result Body Mass Index 25.7 Tobacco/Smoking Status: Tobacco use Status Tobacco use date assessed 12/23/23 02/19/24 10:30 Patient Tobacco Use Status Former Tobacco user 02/19/24 10:30 Tobacco use type Cigarette 02/19/24 10:30 e-Cigarette/Vaping Use Never Used 02/19/24 10:30 Thrive Assessment: Date of Thrive Assessment Date Thrive assessed 10/17/23 02/19/24 10:30 Const General: healthy appearing, no acute distress, alert and awake Nutritional Appearance: well nourished Orientation/consciousness: oriented to person, oriented to place and oriented to time HENMT Ears: TM's normal bilaterally General nose exam: Normal nasal mucous membranes and turbinates present Eyes Conjunctivae: conjunctivae normal Sclerae: sclerae normal Pupils: Equal, round and reactive pupils present Neck Neck: Yes no lymphadenopathy and Yes no JVD Thyroid: Thyroid normal Carotids: no bruits Resp Effort & Inspection: normal respiratory effort and not tachypneic Auscultation: no crackles, no rales, no rhonchi and no wheezes Cardio Rate: regular rate Rhythm: regular rhythm Heart sounds: no murmurs and normal S1 and S2 GI Palpation (GI): Soft to palpation, nontender, no hepatomegaly and no splenomegaly Auscultation: normal bowel sounds Skin General skin exam: no rashes or lesions noted and dry skin Neuro General: oriented to person, oriented to place and oriented to time Cranial nerves: Yes Equal, round and reactive pupils present Speech: No Abnormal speech present Gait exam (Neuro): Normal gait present Motor exam (neuro): no tremor noted Extrem Right upper extremity: full ROM Left upper extremity: full ROM Right lower extremity: full ROM; no edema Left lower extremity: full ROM; no edema Psych Mental Status: mental status grossly normal Speech and movement: Normal speech and movement present Affect: normal affect Attitude: cooperative Thought process: Normal thought process present Assessment and Plan Assessment & Plan (1) Pre-op evaluation: Code(s): Z01.818 - Encounter for other preprocedural examination Plan: Patient's recent labs and vitals are stable. Most recent EKG showing normal sinus rhythm. Patient is medically clear for needed lumbar spine surgery. (2) Synovial cyst of lumbar spine: Code(s): M71.38 - Other bursal cyst, other site Plan: Continues to have chronic lower lumbar spine pain. Recent imaging showing a synovial cyst in lumbar spine. Due for lumbar spine surgery to remove a synovial cyst in the lumbar spine. (3) Lower back nerve damage: Code(s): S34.8XXA - Injury of other nerves at abdomen, lower back and pelvis level, initial encounter (4) Hypertension: Code(s): I10 - Essential (primary) hypertension Qualifiers: Hypertension type: primary hypertension Qualified Code(s): I10 - Essential (primary) hypertension Plan: Patient's blood pressure acceptable today in office. Will continue his current dose of losartan with goal blood pressure remain below 140/90 (5) COPD (chronic obstructive pulmonary disease): Code(s): J44.9 - Chronic obstructive pulmonary disease, unspecified Qualifiers: COPD type: chronic bronchitis Chronic bronchitis type: simple Qualified Code(s): J41.0 - Simple chronic bronchitis Plan: Has been well controlled for quite awhile, not having to use any maintenance inhaler. Denies any recent exacerbations of COPD. 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 Most recent A1c is 7.8. Will continue working on diabetic diet at this time. Orders: Orders Basic Metabolic Panel 02/19/24 Z.818 - Encounter for other preprocedural examination Complete Blood Count no Diff 02/19/2481 - Encounter for other preprocedural examination ECG 12 lead EKG 02/19/24 - Encounter for other preprocedural examination Hemoglobin A1c 02/19/24 E11.65 - Type 2 diabetes mellitus with hyperglycemia Coding Level of Care Code Est Pt Level 4 (83303) Diagnoses Pre-op evaluation Z Synovial cyst of lumbar spine M71.38 Lower back nerve damage S34.8XXA Primary hypertension I10 Hypertension type: primary hypertension Simple chronic bronchitis J41.0 COPD type: chronic bronchitis Chronic bronchitis type: simple Type 2 diabetes mellitus with hyperglycemia, with long-term current use of insulin E11.65; Z79.4 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
== END 2024-02-19 10:52 | disposition home or self-care (01) ==
PROVIDERS: PCP Internal Medicine; Visit Provider Physician Assistant
DX: J41.0 Simple chronic bronchitis (principal); E11.65 Type 2 diabetes mellitus with hyperglycemia; Z79.4 Long term (current) use of insulin; Z01.818 Encounter for other preprocedural examination; M71.38 Other bursal cyst, other site; S34.8XXA Injury of other nerves at abdomen, lower back and pelvis level, initial encounter; I10 Essential (primary) hypertension
CPT/HCPCS: 99214

== ENCOUNTER 2024-02-19 10:59 | Outpatient (REF) | payer MEDICARE, SELFPAY ==
--- NOTE | 2024-02-19 11:07 | ECG_ITS ---
Test Reason : PRE OP Blood Pressure : / mmHG Vent. Rate : 065 BPM Atrial Rate : 065 BPM P-R Int : 156 ms QRS Dur : 068 ms QT Int : 414 ms P-R-T Axes : 073 039 039 degrees QTc Int : 430 ms Normal sinus rhythm Normal ECG When compared with ECG of 23-AUG-2022 08:11, No significant change was found Referred By: Vishal Rogers Electronically Signed By:RODRIGUEZ DANIELS MD
[2024-02-19 12:30] LABS: Hematocrit 36.4 % (42.0-52.0); Mean Corpuscular Hemoglobin 30.8 pg (27.0-33.0); Mean Corpuscular Volume 93.6 fL (80.0-98.0); Platelet Count 286 X10*3/uL (160-400); Red Blood Count 3.89 X10*6/uL (4.60-5.80); Red Cell Distribution Width 13.7 % (11.0-16.0); White Blood Count 6.3 X10*3/uL (4.8-10.8)
[2024-02-19 12:47] LABS: Estimated Average Glucose 177 mg/dL; Hemoglobin A1c % 7.8 % (<6.0)
[2024-02-19 12:54] LABS: Anion Gap 12 (12-20); Blood Urea Nitrogen 14 mg/dL (9-16); Calcium 9.8 mg/dL (8.4-10.2); Carbon Dioxide 26 mmol/L (22-29); Chloride 104 mmol/L (96-108); Estimated Glomerular Filt Rate > 60; Glucose Random 210 mg/dL (60-115); Potassium 4.1 mmol/L (3.3-5.1); Sodium 138 mmol/L (135-145)
== END 2024-02-19 11:00 | disposition home or self-care (01) ==
LOC: HO.LAB 10:59
PROVIDERS: PCP Internal Medicine; Visit Provider Physician Assistant
DX: Z01.818 Encounter for other preprocedural examination (principal); E11.65 Type 2 diabetes mellitus with hyperglycemia
CPT/HCPCS: 36415; 80048; 83036; 85027; 93005

== ENCOUNTER → 2024-02-19 11:07 | Outpatient (BNV) | payer MEDICARE, SELFPAY | PROVIDERS: PCP Internal Medicine; Visit Provider Internal Medicine Cardiovascular Disease | DX: Z01.818 Encounter for other preprocedural examination (principal) | CPT/HCPCS: 93010 ==

== ENCOUNTER 2024-03-31 13:48 | Outpatient (AMB) | payer MEDICARE, SELFPAY ==
--- NOTE | 2024-03-31 14:05 | MHC.AMDMED ---
Intake Intake Visit Reasons: 30 min Disintegrator Feeder Required: Yes Disintegrator Feeder Language: Business Objects Report Developer Name: Pt's Information Interpreted: non-clinical & clinical Accompanied by: Self / Same As Patient Allergies atorvastatin Allergy (Unknown, Verified 02/19/24 10:42) Rash pencillin Allergy (Unknown, Uncoded 02/19/24 10:31) Rash HPI Comprehensive Diabetes Asmnt Most Recent Diabetes Results: Microalb/Creat Ratio TNP 05/21/23 Cholesterol 129 mg/dL 05/21/23 HDL Cholesterol 38 mg/dL 05/21/23 Triglycerides 62 mg/dL 05/21/23 Creatinine 1.16 mg/dL (0.5-1.4) 02/19/24 Blood Urea Nitrogen 14 mg/dL (9-16) 02/19/24 Sodium 138 mmol/L (135-145) 02/19/24 Potassium 4.1 mmol/L (3.3-5.1) 02/19/24 Chloride 104 mmol/L (96-108) 02/19/24 Carbon Dioxide 26 mmol/L (22-29) 02/19/24 Calcium 9.8 mg/dL (8.4-10.2) 02/19/24 AST 16 U/L (5-37) 05/21/23 ALT 17 U/L (0-40) 05/21/23 Total Protein 7.3 g/dL (6.5-8.0) 05/21/23 Albumin 4.2 g/dL (3.5-5.0) 05/21/23 PFSH Medical History (Updated 02/20/24 @ 12:39 by Vishal Rogers PA-C) Low back pain Prostate cancer Abnormal PSA COPD (chronic obstructive pulmonary disease) Type 2 diabetes mellitus with hyperglycemia Hypertension Vitamin D deficiency Plantar fasciitis Hypercholesterolemia Dental abscess Surgical History H/O colonoscopy Hx of eye surgery History of bilateral cataract extraction History of hand surgery Family History Sister Breast cancer in situ Brother Alcohol abuse Prostate cancer CAD (coronary artery disease) Father Alcohol abuse Mother CAD (coronary artery disease) Brother Prostate cancer Brother Prostate cancer Social History Household Members: Spouse and Family Household Members Other:: , older daughter Housing: House Are you a primary patient care director to a significant other at home: No Do you presently have visiting nurse or other home services: No Alcohol intake: never Patient Tobacco Use Status: Former Tobacco user Tobacco use type: Cigarette Years Smoked: stopped 2017 e-Cigarette/Vaping Use: Never Used Second Hand Smoke Exposure: No service: No Current occupational status: employed Cognitive needs: No Hearing needs: No Vision needs: Yes Assessment & Plan Assessment & Plan (1) Type 2 diabetes mellitus with hyperglycemia: Code(s): E11.65 - Type 2 diabetes mellitus with hyperglycemia Qualifiers: Diabetes mellitus intermediate designer insulin use: with intermediate designer use Qualified Code(s): E11.65 - Type 2 diabetes mellitus with hyperglycemia; Z79.4 - correction (current) use of insulin Plan: Personal Continuous Glucose Monitor: Patients CGM information reviewed Reviewed patient's sensor data: Hypoglycemia: ? Hyperglycemia:? Time in Range:? Average glucose for the last 2 weeks? mg/dL Patient is having postprandial hyperglycemia especially after suppertime, reports that sometimes he uses sliding scale from Dr. Tellez to treat high blood sugar however he has stopped taking pre meal insulin He is still currently taking Basaglar 10 units Is not taking Trulicity because of [id number] cost Recommended to patient to resume NovoLog sliding scale before supper, reviewed with patient sliding scale patient has copy at home on the wall. If patient is experiencing hypoglycemia after supper, whole NovoLog in discuss with next visit with hospital educator NovoLog Scale Greater than 150 to 200 mg/dL- 2 units Greater than 201 to 250 mg/dL-3 units Greater than 251 to 300 mg/dL-4 units Reviewed how to interpret trend arrows Reminded patient that to check finger sticks if symptoms do not match sensor reading. Discussed lag time between finger stick and sensor data.? Patient able to insert sensor independently at home without issue.? Also discussed with patient returning to [facility] to have diabetes managed by a new provider If patient decides he wants to come back to [facility] he will request a referral from PCP Portions of this note were created using voice recognition software, please excuse any words or phrases that may have been misinterpreted. Patient Instructions: Resume NovoLog sliding scale before supper Follow-up with hospital educator in 1 month Coding Level of Care Code Est Pt Level 1 (14250) Diagnoses Type 2 diabetes mellitus with hyperglycemia, with long-term current use of insulin E11.65; Z79.4 Diabetes mellitus group home insulin use: with intermediate designer use
== END 2024-03-31 14:20 | disposition home or self-care (01) ==
PROVIDERS: PCP Internal Medicine; Visit Provider Registered Nurse Diabetes Educator
DX: E11.65 Type 2 diabetes mellitus with hyperglycemia (principal); Z79.4 Long term (current) use of insulin

== ENCOUNTER → 2024-03-31 13:48 | Outpatient (BNVA) | payer MEDICARE, SELFPAY | PROVIDERS: PCP Internal Medicine; Visit Provider Registered Nurse Diabetes Educator | DX: E11.65 Type 2 diabetes mellitus with hyperglycemia (principal); Z79.4 Long term (current) use of insulin | CPT/HCPCS: 99211 ==

== ENCOUNTER 2024-04-28 13:20 | Outpatient (AMB) | payer MEDICARE, SELFPAY ==
--- NOTE | 2024-04-28 13:51 | MHC.AMDMED ---
Intake Intake Visit Reasons: 30 min Suppository Molding Machine Operator Required: Yes Suppository Molding Machine Operator Language: Estimator Project Manager Name: Pt's Information Interpreted: clinical only Accompanied by: Spouse Allergies atorvastatin Allergy (Unknown, Verified 02/19/24 10:42) Rash pencillin Allergy (Unknown, Uncoded 02/19/24 10:31) Rash HPI Comprehensive Diabetes Asmnt Most Recent Diabetes Results: Microalb/Creat Ratio TNP 05/21/23 Cholesterol 129 mg/dL 05/21/23 HDL Cholesterol 38 mg/dL 05/21/23 Triglycerides 62 mg/dL 05/21/23 Creatinine 1.16 mg/dL (0.5-1.4) 02/19/24 Blood Urea Nitrogen 14 mg/dL (9-16) 02/19/24 Sodium 138 mmol/L (135-145) 02/19/24 Potassium 4.1 mmol/L (3.3-5.1) 02/19/24 Chloride 104 mmol/L (96-108) 02/19/24 Carbon Dioxide 26 mmol/L (22-29) 02/19/24 Calcium 9.8 mg/dL (8.4-10.2) 02/19/24 AST 16 U/L (5-37) 05/21/23 ALT 17 U/L (0-40) 05/21/23 Total Protein 7.3 g/dL (6.5-8.0) 05/21/23 Albumin 4.2 g/dL (3.5-5.0) 05/21/23 PFSH Medical History (Updated 02/20/24 @ 12:39 by Vishal Rogers PA-C) Low back pain Prostate cancer Abnormal PSA COPD (chronic obstructive pulmonary disease) Type 2 diabetes mellitus with hyperglycemia Hypertension Vitamin D deficiency Plantar fasciitis Hypercholesterolemia Dental abscess Surgical History H/O colonoscopy Hx of eye surgery History of bilateral cataract extraction History of hand surgery Family History Sister Breast cancer in situ Brother Alcohol abuse Prostate cancer CAD (coronary artery disease) Father Alcohol abuse Mother CAD (coronary artery disease) Brother Prostate cancer Brother Prostate cancer Social History Household Members: Spouse and Family Household Members Other:: , older daughter Housing: House Are you a primary manager wound care to a significant other at home: No Do you presently have visiting nurse or other home services: No Alcohol intake: never Patient Tobacco Use Status: Former Tobacco user Tobacco use type: Cigarette Years Smoked: stopped 2017 e-Cigarette/Vaping Use: Never Used Second Hand Smoke Exposure: No service: No Current occupational status: employed Cognitive needs: No Hearing needs: No Vision needs: Yes Assessment & Plan Assessment & Plan (1) Type 2 diabetes mellitus with hyperglycemia: Code(s): E11.65 - Type 2 diabetes mellitus with hyperglycemia Qualifiers: Diabetes mellitus halfway insulin use: with intermediate designer use Qualified Code(s): E11.65 - Type 2 diabetes mellitus with hyperglycemia; Z79.4 - termite technician (current) use of insulin Plan: Personal Continuous Glucose Monitor: Patients CGM information reviewed Reviewed patient's sensor data: Hypoglycemia: ? 1% Hyperglycemia:?11% Time in Range:?89% Average glucose for the last 2 weeks?137 mg/dL Patient has been taking NovoLog when glucose levels are high, this has caused multiple episode of hypoglycemia in the past 2 weeks. Suggested to patient instead of taking NovoLog 1 glucose levels are high after meals, drink plenty of water and do some physical activity wait an hour or 2 and see if glucose numbers come back into range Currently patient's glucose numbers are very well controlled, he will make appointment to follow-up with certified adaptive physical educator in 4 months He has not seen provider [facility], suggested if he would like to return to [facility] ask PCP for referral Reviewed how to interpret trend arrows Reminded patient that to check finger sticks if symptoms do not match sensor reading. Discussed lag time between finger stick and sensor data.? Patient able to insert sensor independently at home without issue.? Portions of this note were created using voice recognition software, please excuse any words or phrases that may have been misinterpreted. Patient Instructions: Suspenda NovoLog por ahora. Si est? tomando NovoLog, aseg?rese de hacerlo antes de las comidas. Llame al educador en diabetes ante cualquier cambio en los niveles de glucosa. Seguimiento con educador en diabetes en 4 meses. Coding Level of Care Code Est Pt Level 1 (66345) Diagnoses Type 2 diabetes mellitus with hyperglycemia, with long-term current use of insulin E11.65; Z79.4 Diabetes mellitus halfway insulin use: with intermediate designer use
== END 2024-04-28 14:01 | disposition home or self-care (01) ==
PROVIDERS: PCP Internal Medicine; Visit Provider Registered Nurse Diabetes Educator
DX: E11.65 Type 2 diabetes mellitus with hyperglycemia (principal); Z79.4 Long term (current) use of insulin

== ENCOUNTER → 2024-04-28 13:20 | Outpatient (BNVA) | payer MEDICARE, SELFPAY | PROVIDERS: PCP Internal Medicine; Visit Provider Registered Nurse Diabetes Educator | DX: E11.65 Type 2 diabetes mellitus with hyperglycemia (principal); Z79.4 Long term (current) use of insulin | CPT/HCPCS: 99211 ==

== ENCOUNTER 2024-05-08 13:50 | Outpatient (AMB) | payer MEDICARE, SELFPAY ==
--- NOTE | 2024-05-08 13:53 | A.OFFVIS_ITS ---
Vital Signs 05/08/24 13:57 Height 5 ft 2 in Weight 138 lb 14.259 oz BMI 25.4 BP 112/68 Blood Pressure Location Rt brachial Position Sitting Pulse 96 Pulse Source Pulse Oximeter Intake Visit Reasons: DM/LVM Intake Note: Patient presents today for to re-establish treatment for Type 2 Diabetes Mellitus: Last Diabetic eye exam was on: 04/07/2024 Last Podiatry exam was on: Does not see a Help Desk Specialist Most recent HbA1c: 7.8%, 02/19/2024 Random Glucose- 192mg/dL, Today Golf Tournament Consultant Required: No Accompanied by: Significant Other Allergies atorvastatin Allergy (Unknown, Verified 05/08/24 13:55) Rash pencillin Allergy (Unknown, Uncoded 05/08/24 13:55) Rash HPI Comments Details: 67 YO M who is seen in f/u for T2DM. He was last seen by Dr. Tellez 10/30. Last A1C 7.8% in February 2024. Initially diagnosed with T2DM in few yrs. Was initially started on treatment with metformin . Current regimen metfromin 500 mg BID Basaglar 10 units (occasionally holds due to lower sugars Novolog APPROX 4 units per meal starting with 1 unit for every 50 points above 150 He is using novolog just 2-3 times per week TRULICITY 0.75MG WEEKLy Freestyle average glucose: [112 ] Glucose Managment indicator [ ] % TIme in range: [ 0] % very high (above 250) [ 4] % high ?(181-250) [91 ] % in range ?(70-180] 5 % low (69-55) (most of this was over 1 ay) [ 0] % ?very low (below 54) Details [readings in the morning are mainly in range readings slightly higher after supper Reports low sugars occasionally in the morning. Treats lows with drinks OJ . Checks sugar after to ensure it is rising. Treats according to rule of 15's. Family history of T2DM in mother , brother , sister . Has eyes checked yearly, last eye exam UPTODATE , denies retinopathy. Denies neuropathy, cramping, tingling, pain does not see podiatry but would like referral Denies nephropathy, on KRISTEN. Due for urine microalbumin Has HLD, on statin. No recent lipid profile Denies CAD Had diabetes education. [facility] Medical History (Updated 02/20/24 @ 12:39 by Vishal Rogers PA-C) Low back pain Prostate cancer Abnormal PSA COPD (chronic obstructive pulmonary disease) Type 2 diabetes mellitus with hyperglycemia Hypertension Vitamin D deficiency Plantar fasciitis Hypercholesterolemia Dental abscess Surgical History H/O colonoscopy Hx of eye surgery History of bilateral cataract extraction History of hand surgery Family History Sister Breast cancer in situ Brother Alcohol abuse Prostate cancer CAD (coronary artery disease) Father Alcohol abuse Mother CAD (coronary artery disease) Brother Prostate cancer Brother Prostate cancer Social History Household Members: Spouse and Family Household Members Other:: , older daughter Housing: House Are you a primary career coach to a significant other at home: No Do you presently have visiting nurse or other home services: No Alcohol intake: never Patient Tobacco Use Status: Former Tobacco user Tobacco use type: Cigarette Years Smoked: stopped 2018 e-Cigarette/Vaping Use: Never Used Second Hand Smoke Exposure: No service: No Current occupational status: employed Cognitive needs: No Hearing needs: No Vision needs: Yes Physical Exam Vital Signs: Last Vital Signs Pulse 96 05/08/24 13:57 BP 112/68 05/08/24 13:57 BMI result Body Mass Index 25.4 Const General: cooperative and healthy appearing Orientation/consciousness: patient oriented x3 Limitations: no limitations Neck Neck: Yes normal visual inspection Thyroid: Thyroid normal Resp Effort & Inspection: normal respiratory effort Cardio Jugular venous distension: no JVD Rate: regular rate Rhythm: regular rhythm Heart sounds: S1 normal heart sound present and S2 normal heart sound present Skin Other: swelling without erythema left hand (long standing injury) Neuro General: patient oriented x3 Extrem Other: Visual exam of foot performed. No ulcerations or open lesions. No onchomycosis, no callouses. Sensation intact to monofilament exam. Vibratory sensation is normal with 128 Hz tuning fork. Nails elongated and thickened Results Reviewed Results Reviewed: Laboratory Last Values Glucose (Clinic) 194 mg/dL (60-115) H 05/08/24 14:02 Laboratory Tests 05/29/22 08/23/22 05/21/23 06:51 08:21 06:45 Plt Count Potassium Creatinine Estimated GFR Hemoglobin A1c % 7.4 8.8 7.5 Hgb A1c (Clinic) Calcium Urine Creatinine 127.45 Urine Microalbumin < 5.0 Microalb/Creat Ratio TNP 10/16/23 02/19/24 09:09 11:27 Plt Count 286 Potassium 4.1 Creatinine 1.16 Estimated GFR > 60 Hemoglobin A1c % 7.8 H Hgb A1c (Clinic) 7.3 H Calcium 9.8 Urine Creatinine Urine Microalbumin Microalb/Creat Ratio Assessment & Plan Assessment & Plan (1) Type 2 diabetes mellitus with hyperglycemia: Code(s): E11.65 - Type 2 diabetes mellitus with hyperglycemia Category: Medical Qualifiers: Diabetes mellitus rn long term care insulin use: with rn long term care use Qualified Code(s): E11.65 - Type 2 diabetes mellitus with hyperglycemia; Z79.4 - long-term (current) use of insulin Plan: Type 2 diabetic with good control. Last A1c 7.7% current GME my lower than this. We will continue current dosing of all medications. I reviewed with patient and family member that we could switch Basaglar to Tresiba which may provide a more consistent blood sugar. They declined and would like to keep things the same. He was counseled to have a snack at bedtime. Obtain fasting lipid profile and microalbumin creatinine ratio before next office visit. Patient teaching: The patient was counseled to achieve a target A1C of 7% (154 avg). Fasting blood sugars should be 90-130 in the morning and less than 180 two hours after meals. Reviewed the relationship between poor diabetic control and the developement of complications The patient was counseled to wear closed toe shoes, never walk barefooted and to inspect the feet daily. For any signs of infection or open wound patient should notify PCP or go to urgent care. The patient was counseled to always carry a source of sugar and on the rule of 15's: Take 3 glucose tablets and repeat again in 15 minutes if blood sugar is not in normal range. Continue to repeat every 15 minutes until blood sugar is normal. Orders: Referrals Podiatry Referral E11.65 - Type 2 diabetes mellitus with hyperglycemia, Z79.4 - long-term (current) use of insulin Medications: Changed From insulin glargine (Basaglar KwikPen U-100 Insulin) 12 units (0.12 mL) subcut QAM 15 mL 3RF E11.65 - Type 2 diabetes mellitus with hyperglycemia To insulin glargine (Basaglar KwikPen U-100 Insulin) 10 units (0.1 mL) subcut QAM 30 days 3 mL 6RF E11.65 - Type 2 diabetes mellitus with hyperglycemia From insulin aspart U-100 (Novolog FlexPen U-100 Insulin aspart) 8 units (0.08 mL) subcut TID 15 mL 5RF E11.65 - Type 2 diabetes mellitus with hyperglycemia, Z79.4 - lobsterman (current) use of insulin To insulin aspart U-100 (Novolog FlexPen U-100 Insulin aspart) 1 sliding scale dose subcut TID 30 days 15 mL 5RF E11.65 - Type 2 diabetes mellitus with h yperglycemia, Z79.4 - lobsterman (current) use of insulin Coding Level of Care Code Est Pt Level 4 (99518) Complex EM visit Add On G2211 Diagnoses Type 2 diabetes mellitus with hyperglycemia, with long-term current use of insulin E11.65; Z79.4 Diabetes mellitus usp insulin use: with rn long term care use Time Spent (min) 30 Comment TIME SPENT REVIEWING LABS/PREVIOUS PROVIDER NOTES, FACE TO FACE, CHART DOCUMENTATION
[2024-05-08 13:57] VITALS: BP 112/68; PULSE 96; BMI 25.4
[2024-05-08 14:06] LABS: Glucose, Whole Blood 194 mg/dL (60-115)
== END 2024-05-08 14:32 | disposition home or self-care (01) ==
PROVIDERS: PCP Internal Medicine; Visit Provider Nurse Practitioner Adult Health
DX: E11.65 Type 2 diabetes mellitus with hyperglycemia (principal); Z79.4 Long term (current) use of insulin
CPT/HCPCS: 99214; G2211

== ENCOUNTER → 2024-05-08 13:50 | Outpatient (BNVA) | payer MEDICARE, SELFPAY | PROVIDERS: PCP Internal Medicine; Visit Provider Nurse Practitioner Adult Health | DX: E11.65 Type 2 diabetes mellitus with hyperglycemia (principal); Z79.4 Long term (current) use of insulin | CPT/HCPCS: 82947; 99212 ==

== ENCOUNTER 2024-05-20 07:21 | Outpatient (REF) | payer MEDICARE, SELFPAY ==
[2024-05-20 08:05] LABS: Alanine Aminotransferase 16 U/L (0-40); Albumin Level 4.3 g/dL (3.5-5.0); Alkaline Phosphatase 99 U/L (39-117); Anion Gap 12 (12-20); Aspartate Amino Transferase 14 U/L (5-37); Bilirubin Total 0.2 mg/dL (0.0-1.0); Blood Urea Nitrogen 15 mg/dL (9-16); Calcium 10.3 mg/dL (8.4-10.2); Carbon Dioxide 27 mmol/L (22-29); Chloride 106 mmol/L (96-108); Estimated Glomerular Filt Rate > 60; Glucose Random 122 mg/dL (60-115); Potassium 4.3 mmol/L (3.3-5.1); Sodium 141 mmol/L (135-145)
[2024-05-20 08:30] LABS: Free T4 (Free Thyroxine) 0.95 ng/dL (0.71-1.85); Thyroid Stimulating Hormone 2.99 uIU/mL (0.32-4.0)
[2024-05-20 10:25] LABS: Creatinine Urine 119.03 mg/dL
== END 2024-05-20 07:22 | disposition home or self-care (01) ==
LOC: HO.LAB 07:21
PROVIDERS: PCP Internal Medicine; Visit Provider Internal Medicine
DX: E11.65 Type 2 diabetes mellitus with hyperglycemia (principal); R94.6 Abnormal results of thyroid function studies
CPT/HCPCS: 36415; 80053; 82570; 84439; 84443

== ENCOUNTER 2024-05-20 08:54 | Outpatient (AMB) | payer MEDICARE, SELFPAY ==
[2024-05-20 09:06] VITALS: BP 118/62; PULSE 67; O2SAT 98; BMI 25.2
--- NOTE | 2024-05-20 09:06 | MHC.PC.OV ---
Vital Signs 05/20/24 09:06 Height 5 ft 2 in Weight 138 lb BMI 25.2 BP 118/62 Blood Pressure Location Lt brachial Position Sitting Pulse 67 Pulse Source Pulse Oximeter Pulse Oximetry (%) 98 Oxygen Delivery Method Room Air Intake Visit Reasons: Follow Up Allergies atorvastatin Allergy (Unknown, Verified 05/20/24 09:06) Rash pencillin Allergy (Unknown, Uncoded 05/20/24 09:06) Rash Medication List - Last Reconciled 05/20/24 by Matthew Dang MD blood sugar diagnostic (FreeStyle Lite Strips) As directed check the BS TID blood-glucose meter (FreeStyle Lite Meter kit) As directed ciclopirox 8% 1 appl topical BEDTIME 4 weeks dulaglutide (Trulicity) 0.75 mg (0.5 mL) subcut QWEEK flash glucose scanning reader (FreeStyle Ashlye 2 [place]) As directed flash glucose sensor (FreeStyle Ashley 2 Sensor kit) As directed every 2 weeks flash glucose sensor (FreeStyle Ashley 2 Sensor kit) As directed insulin glargine (Basaglar KwikPen U-100 Insulin) 10 units (0.1 mL) subcut QAM 30 days insulin lispro 150-200 1 unit 201-250 2 unit 251-300 3 units over 300 4 units subcutaneously use as directed; 30 days lancets (FreeStyle Lancets) As directed check BS TID losartan 25 mg PO DAILY 90 days metformin 500 mg PO BID pen needle, diabetic (BD Ananya 2nd Gen Pen Needle) USE DIRECTED 5X PER DAY rosuvastatin 5 mg PO DAILY Tobacco use date assessed: 12/23/23 Fall risk assessment: 1 Fall in past year Last assessed Fall Risk: 05/20/24 Dental Screening Dental Screen Date: 12/23/23 HPI Follow Up HPI Details 68-year-old male with prostate cancer diabetes mellitus lumbar radiculopathy coming in for follow-up. December 2023 last seen up-to-date with colonoscopy. Patient has seen endocrinology May 08 currently on metformin Basaglar, Trulicity occasional low sugars in the morning hemoglobin A1c A1c was 7.7 and NovoLog. Patient has also seen urology April 07 high-risk high-grade [place] 9 prostate cancer status post external beam radiotherapy completed in January 2022 ADT last injection 09/25/2022. PSA remains undetectable has persistent urgency and frequency very occasional urge incontinence GEMTESSA started. Patient also underwent neurosurgery with l right L5-S1 MIS decompression for resection of synovial cyst. 03/05/2024 [facility] Medical History (Updated 05/20/24 @ 09:15 by Matthew Dang MD) Low back pain Prostate cancer Abnormal PSA COPD (chronic obstructive pulmonary disease) Type 2 diabetes mellitus with hyperglycemia Hypertension Vitamin D deficiency Plantar fasciitis Hypercholesterolemia Dental abscess Surgical History H/O colonoscopy Hx of eye surgery History of bilateral cataract extraction History of hand surgery Family History Sister Breast cancer in situ Brother Alcohol abuse Prostate cancer CAD (coronary artery disease) Father Alcohol abuse Mother CAD (coronary artery disease) Brother Prostate cancer Brother Prostate cancer Social History Household Members: Spouse and Family Household Members Other:: , older daughter Housing: House Are you a primary career development facilitator to a significant other at home: No Do you presently have visiting nurse or other home services: No Alcohol intake: never Patient Tobacco Use Status: Former Tobacco user Tobacco use type: Cigarette Years Smoked: stopped 2018 e-Cigarette/Vaping Use: Never Used Second Hand Smoke Exposure: No service: No Current occupational status: employed Cognitive needs: No Hearing needs: No Vision needs: Yes Questionnaire PHQ-9 Over the last 2 weeks, how often have you been bothered by any of the following problems? 1. Little interest or pleasure in doing things: not at all 2. Feeling down, depressed, or hopeless: not at all 3. Trouble falling or staying asleep, or sleeping too much: not at all 4. Feeling tired or having little energy: not at all 5. Poor appetite or overeating: not at all 6. Feeling bad about yourself - or that you are a failure or have let yourself or your family down: not at all 7. Trouble concentrating on things, such as reading the newspaper or watching television: not at all 8. Moving or speaking so slowly that other people could have noticed. Or the opposite - being so fidgety or restless that you have been moving around a lot more than usual: not at all 9. Thoughts that you would be better off or of hurting yourself in some way: not at all Total score: 0 Depression Screening Interpretation: Negative Depression Screening Done: Yes 76839 - PHQ-9 Billing: Yes Source: Developed by Drs. Abiel Mireles, Tez Gagnon and colleagues, with an educational mercy from [employer]. Thrive Questionnaire Date Thrive assessed: 10/17/23 AUDIT C Alcohol Use Questionnaire (AUDIT-C) 1. How often do you have a drink containing alcohol?: Never 3. How often do you have six or more drinks on one occasion?: Never Total Score: 0 KYLE-7 AMB Questionnaire KYLE-7 Date KYLE - 7 assessed: 10/17/23 Source: Developed by Drs. Abiel Mireles, Tez Gagnon and colleagues, with an educational mercy from [employer]. Physical exam (Primary Care) Vital Signs: Last Vital Signs Pulse 67 05/20/24 09:06 BP 118/62 05/20/24 09:06 Pulse Ox 98 05/20/24 09:06 Oxygen Delivery Method Room Air 05/20/24 09:06 BMI result Body Mass Index 25.2 Tobacco/Smoking Status: Tobacco use Status Tobacco use date assessed 12/23/23 05/20/24 09:08 Patient Tobacco Use Status Former Tobacco user 05/20/24 09:08 Tobacco use type Cigarette 05/20/24 09:08 e-Cigarette/Vaping Use Never Used 05/20/24 09:08 PHQ-9: PHQ-9 Score PHQ-9: Total score 0 05/20/24 09:20 Depression Screening Interpretation: Negative Thrive Assessment: Date of Thrive Assessment Date Thrive assessed 10/17/23 05/20/24 09:08 Const General: alert; No acute distress Eyes Conjunctivae: conjunctivae normal Resp Auscultation: clear to auscultation bilaterally Cardio Rate: regular rate Rhythm: regular rhythm GI Inspection: Yes normal to inspection Extrem General: Yes normal to inspection and No edema Results AMB Hemoglobin A1c AMB Hemoglobin A1c 7.6 % Last Edit by Yasmine Holloway CMA on 05/20/24 09:26 Results Reviewed Results Reviewed: Laboratory Last Values Hgb A1c (Clinic) 7.6 % (4.0-6.0) H 05/20/24 09:08 Assessment and Plan Assessment & Plan (1) Type 2 diabetes mellitus with hyperglycemia: Code(s): E11.65 - Type 2 diabetes mellitus with hyperglycemia Qualifiers: Diabetes mellitus residential insulin use: with residential use Qualified Code(s): E11.65 - Type 2 diabetes mellitus with hyperglycemia; Z79.4 - extermination inspector (current) use of insulin Plan: Decrease the amount of carbohydrate intake, pasta, bread, rice and potatoes are all sugar and that is aside from all the sweet stuff, remember that fruits are good but they are Sweet also. Hemoglobin A1c goal of less than 7.0. Patient follows up with endocrinology on Trulicity, Basaglar, metformin and NovoLog (2) Hypercholesterolemia: Code(s): E78.00 - Pure hypercholesterolemia, unspecified Plan: Avoid fried foods, chicken skin, eggs, butter margarine, pastries and meat. Be it pork or beef they have a lot of cholesterol LDL goal of less than 100 and triglyceride of less than 150. Last blood work was in 05/2023 (3) COPD (chronic obstructive pulmonary disease): Code(s): J44.9 - Chronic obstructive pulmonary disease, unspecified Qualifiers: COPD type: chronic bronchitis Chronic bronchitis type: simple Qualified Code(s): J41.0 - Simple chronic bronchitis Plan: Stable (4) Hypertension: Code(s): I10 - Essential (primary) hypertension Qualifiers: Hypertension type: primary hypertension Qualified Code(s): I10 - Essential (primary) hypertension Plan: Continue with blood pressure medication. Decrease salt intake and exercise takes losartan 25 mg once a day (5) Prostate cancer: Comment: [facility] prostate cancer external beam radiation January 2022, Kamlesh therapy Code(s): C61 - Malignant neoplasm of prostate Plan: Continue to follow-up with urology continuing to monitor PSA which is undetectable. (6) Overactive bladder: Code(s): N32.81 - Overactive bladder Plan: Patient was started on GEMTESSA (7) Synovial cyst of lumbar spine: Comment: 02/2024 DR. ANN STATUS POST LUMBAR DECOMPRESSION WITH EXCISION OF SYNOVIAL CYST Code(s): M71.38 - Other bursal cyst, other site Plan: STATUS POST LUMBAR DECOMPRESSION WITH EXCISION OF SYNOVIAL CYST Orders: Orders Lipid Panel 3 Months E78.00 - Pure hypercholesterolemia, unspecified Prostate Specific Antigen Scr 3 Months E78.00 - Pure hypercholesterolemia, unspecified Microalbumin, Random (w Creat) 3 Months E11.65 - Type 2 diabetes mellitus with hyperglycemia, E78.00 - Pure hypercholesterolemia, unspecified Creatinine Urine 3 Months E11.65 - Type 2 diabetes mellitus with hyperglycemia, E78.00 - Pure hypercholesterolemia, unspecified Hemoglobin A1c 3 Months E78.00 - Pure hypercholesterolemia, unspecified AMB Hemoglobin A1c Today Z13.9 - Encounter for screening, unspecified Ferritin 3 Months E78.00 - Pure hypercholesterolemia, unspecified IRON PROFILE 3 Months E78.00 - Pure hypercholesterolemia, unspecified Vitamin B12 and Folate 3 Months E78.00 - Pure hypercholesterolemia, unspecified Reticulocyte Count 3 Months E78.00 - Pure hypercholesterolemia, unspecified PSA, Ultra Sensitive Today C61 - Malignant neoplasm of prostate Coding Level of Care Code Est Pt Level 4 (67877) Diagnoses Type 2 diabetes mellitus with hyperglycemia, with long-term current use of insulin E11.65; Z79.4 Diabetes mellitus residential insulin use: with residential use Hypercholesterolemia E78.00 Simple chronic bronchitis J41.0 COPD type: chronic bronchitis Chronic bronchitis type: simple Primary hypertension I10 Hypertension type: primary hypertension Prostate cancer C61 Overactive bladder N32.81 Synovial cyst of lumbar spine M71.38
== END 2024-05-20 09:47 | disposition home or self-care (01) ==
PROVIDERS: PCP Internal Medicine; Visit Provider Internal Medicine
DX: E11.65 Type 2 diabetes mellitus with hyperglycemia (principal); Z79.4 Long term (current) use of insulin; E78.00 Pure hypercholesterolemia, unspecified; J41.0 Simple chronic bronchitis; I10 Essential (primary) hypertension; C61 Malignant neoplasm of prostate; N32.81 Overactive bladder; M71.38 Other bursal cyst, other site; Z13.9 Encounter for screening, unspecified
CPT/HCPCS: 83036; 99214

== ENCOUNTER 2024-06-01 06:52 | Outpatient (REF) | payer MEDICARE, SELFPAY ==
[2024-06-01 08:37] LABS: Free T4 (Free Thyroxine) 0.91 ng/dL (0.71-1.85); Thyroid Stimulating Hormone 2.61 uIU/mL (0.32-4.0)
[2024-06-10 18:03] LABS: PSA, Ultra Sensitive <0.02 ng/mL
== END 2024-06-01 06:53 | disposition home or self-care (01) ==
LOC: HO.LAB 06:52
PROVIDERS: PCP Internal Medicine; Visit Provider Internal Medicine
DX: C61 Malignant neoplasm of prostate (principal); R79.89 Other specified abnormal findings of blood chemistry; Z12.5 Encounter for screening for malignant neoplasm of prostate
CPT/HCPCS: 36415; 84153; 84439; 84443

== ENCOUNTER 2024-09-02 12:52 | Outpatient (AMB) | payer MEDICARE, SELFPAY ==
[2024-09-02 13:00] VITALS: BP 102/58; PULSE 64; O2SAT 100; BMI 24.7
--- NOTE | 2024-09-02 13:00 | A.OFFPC_ITS ---
Vital Signs 09/02/24 13:00 09/02/24 13:19 Height 5 ft 2 in Weight 135 lb BMI 24.7 BP 102/58 L 112/60 Blood Pressure Location Lt brachial Lt brachial Position Sitting Sitting Pulse 64 Pulse Source Pulse Oximeter Pulse Oximetry (%) 100 Oxygen Delivery Method Room Air Intake Visit Reasons: DM Allergies atorvastatin Allergy (Unknown, Verified 09/02/24 13:01) Rash pencillin Allergy (Unknown, Uncoded 09/02/24 13:01) Rash Tobacco use date assessed: 12/23/23 Fall risk assessment: No Falls in past year Last assessed Fall Risk: 09/02/24 Dental Screening Dental Screen Date: 12/23/23 HPI DM HPI Details 68-year-old male with diabetes mellitus hypercholesterolemia COPD hypertension history of prostate cancer overactive bladder coming in for follow- up. Last seen in 05/26/2024. Colonoscopy is up-to-date 2022. Blood work needs to be done [facility] Medical History (Updated 09/02/24 @ 13:33 by Matthew Dang MD) Low back pain Prostate cancer Abnormal PSA COPD (chronic obstructive pulmonary disease) Type 2 diabetes mellitus with hyperglycemia Hypertension Vitamin D deficiency Plantar fasciitis Hypercholesterolemia Dental abscess Surgical History H/O colonoscopy Hx of eye surgery History of bilateral cataract extraction History of hand surgery Family History Sister Breast cancer in situ Brother Alcohol abuse Prostate cancer CAD (coronary artery disease) Father Alcohol abuse Mother CAD (coronary artery disease) Brother Prostate cancer Brother Prostate cancer Social History Household Members: Spouse and Family Household Members Other:: , older daughter Housing: House Are you a primary care team assistant to a significant other at home: No Do you presently have visiting nurse or other home services: No Alcohol intake: never Patient Tobacco Use Status: Former Tobacco user Tobacco use type: Cigarette Years Smoked: stopped 2017 e-Cigarette/Vaping Use: Never Used Second Hand Smoke Exposure: No service: No Current occupational status: employed Cognitive needs: No Hearing needs: No Vision needs: Yes Questionnaire PHQ-9 Over the last 2 weeks, how often have you been bothered by any of the following problems? 1. Little interest or pleasure in doing things: not at all 2. Feeling down, depressed, or hopeless: not at all 3. Trouble falling or staying asleep, or sleeping too much: not at all 4. Feeling tired or having little energy: not at all 5. Poor appetite or overeating: not at all 6. Feeling bad about yourself - or that you are a failure or have let yourself or your family down: not at all 7. Trouble concentrating on things, such as reading the newspaper or watching television: not at all 8. Moving or speaking so slowly that other people could have noticed. Or the opposite - being so fidgety or restless that you have been moving around a lot more than usual: not at all 9. Thoughts that you would be better off or of hurting yourself in some way: not at all Total score: 0 Depression Screening Interpretation: Negative Depression Screening Done: Yes 43005 - PHQ-9 Billing: Yes Source: Developed by Drs. Abiel Mireles, Tez Gagnon and colleagues, with an educational mercy from [employer]. Thrive Questionnaire Date Thrive assessed: 10/17/23 AUDIT C Alcohol Use Questionnaire (AUDIT-C) 1. How often do you have a drink containing alcohol?: Never 3. How often do you have six or more drinks on one occasion?: Never Total Score: 0 KYLE-7 AMB Questionnaire KYLE-7 Date KYLE - 7 assessed: 10/17/23 Source: Developed by Drs. Abiel Mireles, Tez Gagnon and colleagues, with an educational mercy from [employer]. Physical exam (Primary Care) Vital Signs: Last Vital Signs Pulse 64 09/02/24 13:00 BP 102/58 L 09/02/24 13:00 Pulse Ox 100 09/02/24 13:00 Oxygen Delivery Method Room Air 09/02/24 13:00 BMI result Body Mass Index 24.7 Tobacco/Smoking Status: Tobacco use Status Tobacco use date assessed 12/23/23 09/02/24 13:01 Patient Tobacco Use Status Former Tobacco user 09/02/24 13:01 Tobacco use type Cigarette 09/02/24 13:01 e-Cigarette/Vaping Use Never Used 09/02/24 13:01 PHQ-9: PHQ-9 Score PHQ-9: Total score 0 09/02/24 13:15 Depression Screening Interpretation: Negative Thrive Assessment: Date of Thrive Assessment Date Thrive assessed 10/17/23 09/02/24 13:01 Const General: alert; No acute distress Eyes Conjunctivae: conjunctivae normal Resp Auscultation: clear to auscultation bilaterally Cardio Rate: regular rate Rhythm: regular rhythm GI Inspection: Yes normal to inspection Extrem General: Yes normal to inspection and No edema Results AMB Hemoglobin A1c AMB Hemoglobin A1c 7.4 % Last Edit by Yasmine Holloway CMA on 09/02/24 13 :17 Coding Level of Care Code Est Pt Level 4 (88489) Complex EM visit Add On G2211 Diagnoses Prostate cancer C61 Type 2 diabetes mellitus with hyperglycemia, with long-term current use of insulin E11.65; Z79.4 Diabetes mellitus residential insulin use: with terminal operations manager use Primary hypertension I10 Hypertension type: primary hypertension Hypercholesterolemia E78.00 Simple chronic bronchitis J41.0 COPD type: chronic bronchitis Chronic bronchitis type: simple Additional Codes PHQ-9 - 83449 - PHQ-9 Billing: Yes ([id number]) Assessment & Plan Assessment & Plan (1) Prostate cancer: Comment: [place] [id number] [facility] Code[facility]s): C61 - Malignant neoplasm of prostate Category: Medical Plan: Continue to follow-up with urology (2) Type 2 diabetes mellitus with hyperglycemia: Comment: Dr. Aguirre Code(s): E11.65 - Type 2 diabetes mellitus with hyperglycemia Category: Medical Qualifiers: Diabetes mellitus terminal operations manager insulin use: with terminal operations manager use Qualified Code(s): E11.65 - Type 2 diabetes mellitus with hyperglycemia; Z79.4 - director long term care (current) use of insulin Plan: Decrease the amount of carbohydrate intake, pasta, bread, rice and potatoes are all sugar and that is aside from all the sweet stuff, remember that fruits are good but they are Sweet also. Hemoglobin A1c goal of less than 7.0. Patient is on Trulicity once a week Basaglar 10 units once a day lispro sliding scale metformin 500 mg twice a day. Had a long discussion with the patient and family with blood sugars noted on the machine 200+ concern that the numbers are high. Patient is referred to Endocrinology. Meanwhile Trulicity is increased discussion on diet with rice will seek for alternatives like Quinoa(grains) discussed about alternatives for meat to chicken. Discussed about vegetables. Patient is a little hesitant (3) Hypertension: Code(s): I10 - Essential (primary) hypertension Category: Medical Qualifiers: Hypertension type: primary hypertension Qualified Code(s): I10 - Essential (primary) hypertension Plan: Continue with blood pressure medication. Decrease salt intake and exercise on losartan 25 mg once a day. Concern about the low blood pressure. And will discontinue losartan. (4) Hypercholesterolemia: Code(s): E78.00 - Pure hypercholesterolemia, unspecified Category: Medical Plan: Avoid fried foods, chicken skin, eggs, butter margarine, pastries and meat. Be it pork or beef they have a lot of cholesterol LDL goal of less than 100 and triglyceride of less than 150. Patient needs to get blood work he is on rosuvastatin 5 mg once a day (5) COPD (chronic obstructive pulmonary disease): Code(s): J44.9 - Chronic obstructive pulmonary disease, unspecified Category: Medical Qualifiers: COPD type: chronic bronchitis Chronic bronchitis type: simple Qualified Code(s): J41.0 - Simple chronic bronchitis Plan: Stable Orders: Orders AMB Hemoglobin A1c Today Z13.9 - Encounter for screening, unspecified Referrals Endocrinology Referral E11.65 - Type 2 diabetes mellitus with hyperglycemia, Z79.4 - director long term care (current) use of insulin Medications: Changed From dulaglutide (Trulicity) 0.75 mg (0.5 mL) subcut QWEEK 2 mL 4RF To dulaglutide 1.5 mg (0.5 mL) subcut QWEEK 30 days 2.5 mL 4RF Refilled dulaglutide 1.5 mg (0.5 mL) subcut QWEEK 30 days 2.5 mL 4RF Discontinued losartan Discontinued Reason: Doctor's Order 25 mg PO DAILY 90 days 90 tabs 2RF E11.65 - Type 2 diabetes mellitus with hyperglycemia
[2024-09-02 13:19] VITALS: BP 112/60
== END 2024-09-02 14:53 | disposition home or self-care (01) ==
PROVIDERS: PCP Internal Medicine; Visit Provider Internal Medicine
DX: E11.65 Type 2 diabetes mellitus with hyperglycemia (principal); C61 Malignant neoplasm of prostate; Z79.4 Long term (current) use of insulin; J41.0 Simple chronic bronchitis; I10 Essential (primary) hypertension; E78.00 Pure hypercholesterolemia, unspecified

== ENCOUNTER → 2024-09-02 12:52 | Outpatient (BNVA) | payer MEDICARE, SELFPAY | PROVIDERS: PCP Internal Medicine; Visit Provider Internal Medicine | DX: C61 Malignant neoplasm of prostate (principal); E11.65 Type 2 diabetes mellitus with hyperglycemia; Z79.4 Long term (current) use of insulin; I10 Essential (primary) hypertension; E78.00 Pure hypercholesterolemia, unspecified; J41.0 Simple chronic bronchitis | CPT/HCPCS: 83036; 96127; 99212 ==

== ENCOUNTER 2024-09-05 07:05 | Outpatient (REF) | payer MEDICARE, SELFPAY ==
[2024-09-05 07:44] LABS: Immature Retic Fraction 8.7 % (2.3-13.4); Retic HGB Equivalent 34.1 pg (30.0-35.0); Reticulocyte Percent 1.3 % (0.5-1.8); Reticulocytes Absolute 0.055 X10*6/uL (0.026-0.095)
[2024-09-05 07:48] LABS: Estimated Average Glucose 151 mg/dL; Hemoglobin A1C 166.4713 umol/L; Hemoglobin A1c % 6.9 % (<6.0); Total Hemoglobin (HGBA1C) 3239.1076 umol/L
[2024-09-05 08:15] LABS: Creatinine Urine 243.04 mg/dL; Microalbum/Creatinine Ratio Ur 8.6 ug/mg cr (<30)
[2024-09-05 08:23] LABS: Cholesterol 112 mg/dL (<200); HDL Cholesterol 36 mg/dL (>40); Iron 67 mcg/dL (45-160); LDL Cholesterol Calculated 62 mg/dL (<100); Percent Iron Saturation 24 % (15-50); Total Iron Binding Capacity 275 mcg/dL (228-428); Triglycerides 73 mg/dL (<150); Unsaturated Iron Binding 208 ug/dL
[2024-09-05 08:38] LABS: Ferritin 140 ng/mL (20-250)
[2024-09-05 08:54] LABS: Folate 6.4 ng/mL (> or = 4.0); Prostate Specific Antigen Scr < 0.10 ng/mL (<0.05-4.0); Vitamin B12 311 pg/mL (200-900)
== END 2024-09-05 07:06 | disposition home or self-care (01) ==
LOC: HO.LAB 07:05
PROVIDERS: PCP Internal Medicine; Visit Provider Internal Medicine
DX: E78.00 Pure hypercholesterolemia, unspecified (principal); E11.65 Type 2 diabetes mellitus with hyperglycemia; Z12.5 Encounter for screening for malignant neoplasm of prostate
CPT/HCPCS: 36415; 80061; 82043; 82570; 82607; 82728; 82746; 83036; 83540; 84153; 85045

== ENCOUNTER 2024-09-11 13:51 | Outpatient (AMB) | payer MEDICARE, SELFPAY ==
--- NOTE | 2024-09-11 13:57 | MHC.OFFVIS ---
Vital Signs 09/11/24 13:58 Height 5 ft 2 in Weight 138 lb 0.15 oz BMI 25.2 BP 98/70 Blood Pressure Location Lt brachial Position Sitting Intake Visit Reasons: DM/CONF Intake Note: Patient presents today for D2MT follow up visit. Last Diabetic Eye exam: 2 years ago Last Podiatry Visit: Doesn't have one Random Glucose: 131 mg/dl HgA1c: 7.4% 09/02/24 Energy Audit Advisor Required: No Accompanied by: Daughter Allergies atorvastatin Allergy (Unknown, Verified 09/11/24 14:23) Rash pencillin Allergy (Unknown, Uncoded 09/11/24 14:23) Rash HPI Comments Details: This is a 68-year-old male with a past medical history of lumbar radiculopathy, onychomycosis, prostate cancer, hyperlipidemia, COPD, hypertension and type 2 diabetes presenting for diabetic management. Patient was last seen by Jodee Smith on 05/08/2024. He is here with his daughter. [place] video site interpreter used. He was diagnosed with type 2 diabetes a few years ago. The patient had a fingerstick A1c on 09/02/2024 that was 7.4%, but he had an A1c drawn at the lab on 09/05/2024, and it was 6.9%. The GMI from his sensor the last 2 weeks is 6.7%. CGM data reviewed: CGM active 62% GMI 6.7% Average glucose 141 Glucose variability 27.1% 0% hypoglycemia Target range 85% High 14% Very high 1% Patient denies symptoms with hyperglycemia. Hypoglycemia occurs after he eats. He usually eats rice once or twice a day, and it is a large portion with beans. He does not like fruits and vegetables. Patient was referred to Podiatry, but he did not hear back about this. He has nail fungus. He denies numbness or tingling in his feet. Current regimen: Metformin 500 mg twice daily, Basaglar 10 units every evening, Trulicity 0.75 mg weekly. Patient is also prescribed NovoLog. He takes 4 units per meal starting with 1 unit for every 50 points above 150. He has not needed to use it within the past month. Denies recent episodes of hypoglycemia. Complications: Neuropathy ROS: Constitutional: No unexplained weight loss, fever, chills, fatigue or night sweats. Eyes: No vision changes, blurry vision, double vision Respiratory: No shortness of breath Cardiovascular: No chest pain Neurologic: No headache, dizziness, syncope Endocrine: No cold or heat intolerance. No polyuria or polydipsia. Physical exam: Constitutional: Alert, in no distress. Eyes: Pupils are equal, round and reactive to light. Extraocular muscles intact. Neck: Supple, Full range of motion. No lymphadenopathy. No palpable thyroid masses. Respiratory: Clear to auscultation. Cardiovascular: S1 S2 regular. No murmurs. Right foot: Warm and well perfused. No clubbing, cyanosis or edema. Decreased vibratory sensation of the toes. Intact sensation to monofilament. No open wounds. Onychomycosis of the toenails. Left foot: Warm and well perfused. No clubbing, cyanosis or edema. Decreased vibratory sensation of the toes. Intact sensation to monofilament. No open wounds. Onychomycosis of the toenails. [facility] Medical History (Updated 09/11/24 @ 16:26 by JOSE Caraballo) Controlled type 2 diabetes mellitus Low back pain Prostate cancer Abnormal PSA COPD (chronic obstructive pulmonary disease) Type 2 diabetes mellitus with hyperglycemia Hypertension Vitamin D deficiency Plantar fasciitis Hypercholesterolemia Dental abscess Surgical History H/O colonoscopy Hx of eye surgery History of bilateral cataract extraction History of hand surgery Family History Sister Breast cancer in situ Brother Alcohol abuse Prostate cancer CAD (coronary artery disease) Father Alcohol abuse Mother CAD (coronary artery disease) Brother Prostate cancer Brother Prostate cancer Social History Household Members: Spouse and Family Household Members Other:: , older daughter Housing: House Are you a primary technical healthcare consultant to a significant other at home: No Do you presently have visiting nurse or other home services: No Alcohol intake: never Patient Tobacco Use Status: Former Tobacco user Tobacco use type: Cigarette Years Smoked: stopped 2017 e-Cigarette/Vaping Use: Never Used Second Hand Smoke Exposure: No service: No Current occupational status: employed Cognitive needs: No Hearing needs: No Vision needs: Yes Physical Exam Vital Signs: Last Vital Signs BP 98/70 09/11/24 13:58 BMI result Body Mass Index 25.2 Results Reviewed Results Reviewed: Laboratory Last Values Glucose (Clinic) 131 mg/dL (60-115) H 09/11/24 14:07 Laboratory Tests 05/20/24 09/05/24 09/05/24 07:31 07:16 07:21 Creatinine 1.08 Estimated GFR > 60 Hemoglobin A1c % 6.9 H Triglycerides 73 Cholesterol 112 LDL Cholesterol, Calc 62 HDL Cholesterol 36 L Urine Creatinine 243.04 Urine Microalbumin 21.0 Microalb/Creat Ratio 8.6 Assessment & Plan Assessment & Plan (1) Onychomycosis: Code(s): B35.1 - Tinea unguium Category: Medical (2) Controlled type 2 diabetes mellitus: Code(s): E11.9 - Type 2 diabetes mellitus without complications Category: Medical Plan In summary this is a 68-year-old male with controlled type 2 diabetes per lab A1c which is supported by CGM data versus the fingerstick A1c that was done recently. He does still have some episodes of hyperglycemia after eating meals high in carbohydrates. Advised patient we could change metformin to extended release and dose it in the morning or consider dose increase of Trulicity, but he declines for now. He would like to work on diet. Discussed that he can substitute part of his rice portion as riced cauliflower since this is a big source of carbohydrates for him. He does not like cauliflower on its own so he will try mixing them together 50/50. Advised patient to continue Trulicity 0.75 mg for now, metformin 500 mg twice daily and Basaglar 10 units. He has not required NovoLog within the past month. Complications of type 2 diabetes were reviewed with the patient in detail. Reviewed proper treatment of hypoglycemia. Refer to podiatry. Follow up in 3 months. Medications: New dulaglutide (Trulicity) 0.75 mg (0.5 mL) subcut QWEEK 2 mL 3RF Discontinued dulaglutide Discontinued Reason: Doctor's Order 1.5 mg (0.5 mL) subcut QWEEK 30 days 2.5 mL 4RF Coding Level of Care Code Est Pt Level 4 (86827) Complex EM visit Add On G2211 Diagnoses Onychomycosis B35.1 Controlled type 2 diabetes mellitus E11.9
[2024-09-11 13:58] VITALS: BP 98/70; BMI 25.2
[2024-09-11 14:11] LABS: Glucose, Whole Blood 131 mg/dL (60-115)
== END 2024-09-11 14:47 | disposition home or self-care (01) ==
PROVIDERS: PCP Internal Medicine; Visit Provider Physician Assistant Medical
DX: B35.1 Tinea unguium (principal); E11.9 Type 2 diabetes mellitus without complications

== ENCOUNTER → 2024-09-11 13:51 | Outpatient (BNVA) | payer MEDICARE, SELFPAY | PROVIDERS: PCP Internal Medicine; Visit Provider Physician Assistant Medical | DX: E11.9 Type 2 diabetes mellitus without complications (principal); E78.5 Hyperlipidemia, unspecified; B35.1 Tinea unguium; Z79.84 Long term (current) use of oral hypoglycemic drugs | CPT/HCPCS: 82947; 99212 ==

== ENCOUNTER 2024-10-28 15:10 | Outpatient (AMB) | payer MEDICARE, SELFPAY ==
--- NOTE | 2024-10-28 15:27 | A.OFFVIS_ITS ---
Intake Intake Visit Reasons: DM Auto Rebuilder Required: Yes Auto Rebuilder Language: Spring Machine Operator Name: Pt's Accompanied by: Spouse Allergies atorvastatin Allergy (Unknown, Verified 09/11/24 14:23) Rash pencillin Allergy (Unknown, Uncoded 09/11/24 14:23) Rash HPI Comprehensive Diabetes Asmnt Most Recent Diabetes Results: Microalb/Creat Ratio 8.6 ug/mg cr (<30) 09/05/24 Cholesterol 112 mg/dL (<200) 09/05/24 HDL Cholesterol 36 mg/dL (>40) L 09/05/24 Triglycerides 73 mg/dL (<150) 09/05/24 Creatinine 1.08 mg/dL (0.5-1.4) 05/20/24 Blood Urea Nitrogen 15 mg/dL (9-16) 05/20/24 Sodium 141 mmol/L (135-145) 05/20/24 Potassium 4.3 mmol/L (3.3-5.1) 05/20/24 Chloride 106 mmol/L (96-108) 05/20/24 Carbon Dioxide 27 mmol/L (22-29) 05/20/24 Calcium 10.3 mg/dL (8.4-10.2) H 05/20/24 AST 14 U/L (5-37) 05/20/24 ALT 16 U/L (0-40) 05/20/24 Total Protein 7.0 g/dL (6.5-8.0) 05/20/24 Albumin 4.3 g/dL (3.5-5.0) 05/20/24 [facility] Medical History (Updated 09/11/24 @ 16:26 by JOSE Caraballo) Controlled type 2 diabetes mellitus Low back pain Prostate cancer Abnormal PSA COPD (chronic obstructive pulmonary disease) Type 2 diabetes mellitus with hyperglycemia Hypertension Vitamin D deficiency Plantar fasciitis Hypercholesterolemia Dental abscess Surgical History H/O colonoscopy Hx of eye surgery History of bilateral cataract extraction History of hand surgery Family History Sister Breast cancer in situ Brother Alcohol abuse Prostate cancer CAD (coronary artery disease) Father Alcohol abuse Mother CAD (coronary artery disease) Brother Prostate cancer Brother Prostate cancer Social History (Reviewed 09/11/24 @ 14:23 by ROSCOE Oden Household Members: Spouse and Family Household Members Other:: , older daughter Housing: House Are you a primary health and social care teacher to a significant other at home: No Do you presently have visiting nurse or other home services: No Alcohol intake: never Patient Tobacco Use Status: Former Tobacco user Tobacco use type: Cigarette Years Smoked: stopped 2018 e-Cigarette/Vaping Use: Never Used Second Hand Smoke Exposure: No service: No Current occupational status: employed Cognitive needs: No Hearing needs: No Vision needs: Yes Assessment & Plan Assessment & Plan (1) Type 2 diabetes mellitus with hyperglycemia: Comment: Dr. Aguirre Code(s): E11.65 - Type 2 diabetes mellitus with hyperglycemia Qualifiers: Diabetes mellitus nursing home insulin use: with petroleum terminal plant operator use Qualified Code(s): E11.65 - Type 2 diabetes mellitus with hyperglycemia; Z79.4 - FDC (current) use of insulin Plan: Personal Continuous Glucose Monitor: Patients CGM information reviewed, Pt uses Ashley 2, with reader Sensor data: Hypoglycemia: ? 0% Hyperglycemia:? 27% Time in Range:? 73% Average glucose for the last 2 weeks?158 mg/dL Patient does have missing data due to not scanning frequently enough. At today's visit discussed upgrading to Ashley 3 sensors. Patient has some spikes in glucose, which he reports is after eating ice cream or chocolate. Discussed strategies for how to handle postprandial hyperglycemia, such as adding physical activity after meals and be sure to drink plenty of non carbohydrate fluids Patient indicated he understood, will try to increase physical activity when indulging in sweet treats Patient able to insert sensor independently at home without issue.? Portions of this note were created using voice recognition software, please excuse any words or phrases that may have been misinterpreted. Patient Instructions: Patient will contact life educator when he receives Ashley 3 reader and sensors Coding Level of Care Code Est Pt Level 1 (44751) Diagnoses Type 2 diabetes mellitus with hyperglycemia, with long-term current use of insulin E11.65; Z79.4 Diabetes mellitus petroleum terminal plant operator insulin use: with petroleum terminal plant operator use
== END 2024-10-28 15:29 | disposition home or self-care (01) ==
PROVIDERS: PCP Internal Medicine; Visit Provider Registered Nurse Diabetes Educator
DX: E11.65 Type 2 diabetes mellitus with hyperglycemia (principal); Z79.4 Long term (current) use of insulin

== ENCOUNTER → 2024-10-28 15:10 | Outpatient (BNVA) | payer MEDICARE, SELFPAY | PROVIDERS: PCP Internal Medicine; Visit Provider Registered Nurse Diabetes Educator | DX: E11.65 Type 2 diabetes mellitus with hyperglycemia (principal); Z79.4 Long term (current) use of insulin | CPT/HCPCS: 99211 ==

== ENCOUNTER 2024-11-16 08:14 | Outpatient (AMB) ==
--- NOTE | 2024-11-16 08:37 | MHC.PC.OV ---
Vital Signs 11/16/24 08:38 Height 5 ft 2 in Weight 135 lb 6 oz BMI 24.8 BP 102/62 Blood Pressure Location Lt brachial Position Sitting Pulse 63 Pulse Source Pulse Oximeter Temp 96.9 F Temp Source Skin Pulse Oximetry (%) 99 Oxygen Delivery Method Room Air Intake Visit Reasons: Pain in Feet Intake Note: Patient is here to follow up on pain in feet. Food And Beverage Cashier Required: Yes Food And Beverage Cashier Language: Rn Maternal Child Name: Rosalind (spouse) Nib Assembler: Present Accompanied by: Spouse Allergies atorvastatin Allergy (Unknown, Verified 11/16/24 08:38) Rash pencillin Allergy (Unknown, Uncoded 11/16/24 08:38) Rash Tobacco use date assessed: 11/16/24 Fall risk assessment: No Falls in past year Last assessed Fall Risk: 11/16/24 Dental Screening Dental Screen Date: 11/16/24 Did you have a dental visit in the last 12 months?: Yes Did you have a dental problem in the last 6 months where you did not have access to dental care?: No Was dental information given to patient?: Patient has dentist HPI Pain in Feet HPI Details 69-year-old male with past medical history of diabetes mellitus, hypercholesterolemia, COPD, hypertension, history of prostate cancer, overactive bladder last seen 08/[address] Dang coming in for acute problem.? In review of the notes, patient was seen by [facility] [place] 09/2024 Trulicity increased to 1.5 mg. Patient presenting with foot pain and tenderness primarily around the heel. Foot pain has been present intermittently for several months, with tenderness and redness occurring approximately four days ago. Pain has alternated between the right and left heels, without associated numbness or tingling sensations. The patient is diabetic, raising concerns of diabetic neuropathy contributing to his symptoms. Patient has been trying to establish care with a cattle sorter however has been having issues. The choice of footwear, mainly slippers, may exacerbate or contribute to his history of plantar fasciitis. Patient was previously receiving injections for plantar fasciitis. [facility] Medical History Controlled type 2 diabetes mellitus Low back pain Prostate cancer Abnormal PSA COPD (chronic obstructive pulmonary disease) Type 2 diabetes mellitus with hyperglycemia Hypertension Vitamin D deficiency Plantar fasciitis Hypercholesterolemia Dental abscess Surgical History H/O colonoscopy Hx of eye surgery History of bilateral cataract extraction History of hand surgery Family History Sister Breast cancer in situ Brother Alcohol abuse Prostate cancer CAD (coronary artery disease) Father Alcohol abuse Mother CAD (coronary artery disease) Brother Prostate cancer Brother Prostate cancer Social History Household Members: Spouse and Family Household Members Other:: , older daughter Housing: House Are you a primary manager medicare marketing to a significant other at home: No Do you presently have visiting nurse or other home services: No Alcohol intake: never Patient Tobacco Use Status: Former Tobacco user Tobacco use type: Cigarette Years Smoked: stopped 2018 e-Cigarette/Vaping Use: Never Used Second Hand Smoke Exposure: Yes service: No Current occupational status: employed Cognitive needs: No Hearing needs: No Vision needs: Yes Questionnaire PHQ-9 Over the last 2 weeks, how often have you been bothered by any of the following problems? 1. Little interest or pleasure in doing things: not at all 2. Feeling down, depressed, or hopeless: not at all 3. Trouble falling or staying asleep, or sleeping too much: not at all 4. Feeling tired or having little energy: not at all 5. Poor appetite or overeating: not at all 6. Feeling bad about yourself - or that you are a failure or have let yourself or your family down: not at all 7. Trouble concentrating on things, such as reading the newspaper or watching television: not at all 8. Moving or speaking so slowly that other people could have noticed. Or the opposite - being so fidgety or restless that you have been moving around a lot more than usual: not at all 9. Thoughts that you would be better off or of hurting yourself in some way: not at all Total score: 0 Depression Screening Interpretation: Negative Depression Screening Done: Yes Source: Developed by Drs. Abiel Mireles, Katherin Marquis, Tez Nieves and colleagues, with an educational mercy from [employer]. Thrive Questionnaire Date Thrive assessed: 11/16/24 I am a: Patient What is your living situation today?: I have a steady place to live Within the past 12 months, did the food you bought not last and you didn't have the money to get more?: Never true Within the past 12 months, did you worry whether your food would run out before you got money to buy more?: Never true Do you have trouble paying for medicines?: No Do you have trouble getting transportation to medical appointments?: No Do you have trouble paying your heating and electricity bill?: No Do you have trouble taking care of your child, family member or friend?: No Do you have trouble with day-to-day activities such as bathing, preparing meals, shopping, managing finances, etc.?: No Are you currently unemployed and looking for a job?: No Are you interested in more education?: No Please select the resources that you would like help with: None Currently or been in a relationship where the following occur: No concerns reported THRIVE Score: 0 AUDIT C Alcohol Use Questionnaire (AUDIT-C) 1. How often do you have a drink containing alcohol?: Never Total Score: 0 KYLE-7 AMB Questionnaire KYLE-7 Date KYLE - 7 assessed: 11/16/24 Feeling nervous, anxious, or on edge: 0 = Not at all Not being able to stop or control worryin = Not at all Worrying too much about different things: 0 = Not at all Trouble relaxin = Not at all Being so restless that it is hard to sit still: 0 = Not at all Becoming easily annoyed or irritable: 0 = Not at all Feeling afraid as if something awful might happen: 0 = Not at all Total KYLE-7 score (0-4 normal; 5-9 mild; 10-14 moderate; 15-21 severe): 0 Source: Developed by Drs. Abiel Mireles, Katherin Marquis, Tez Nieves and colleagues, with an educational mercy from [employer]. Review of Systems Const Denies body aches, Denies chills, Denies fever(s) and Denies poor appetite Eyes Reports no additional complaints Card Denies chest pain, Denies edema and Denies dyspnea Resp Denies dyspnea Reports no additional complaints Musc Details: Bilateral heel pain Denies abnormal gait Skin/Breast Reports system reviewed and no additional complaints, except as documented Neuro Denies abnormal gait Psych Reports no additional complaints Physical exam (Primary Care) Vital Signs: Last Vital Signs Temp 96.9 F 11/16/24 08:38 Pulse 63 11/16/24 08:38 BP 102/62 11/16/24 08:38 Pulse Ox 99 11/16/24 08:38 Oxygen Delivery Method Room Air 11/16/24 08:38 BMI result Body Mass Index 24.8 Tobacco/Smoking Status: Tobacco use Status Tobacco use date assessed 11/16/24 11/16/24 08:46 Patient Tobacco Use Status Former Tobacco user 11/16/24 08:46 Tobacco use type Cigarette 11/16/24 08:46 e-Cigarette/Vaping Use Never Used 11/16/24 08:46 PHQ-9: PHQ-9 Score PHQ-9: Total score 0 11/16/24 08:46 Depression Screening Interpretation: Negative Thrive Assessment: Date of Thrive Assessment Date Thrive assessed 11/16/24 11/16/24 08:46 Currently or been in a relationship where the following occur: No concerns reported Const General: cooperative, healthy appearing, comfortable and no acute distress Orientation/consciousness: patient oriented x3 HENMT Head: Yes normocephalic Ears: hearing grossly normal bilaterally General nose exam: Normal external nose present Eyes General: appearance normal, both eyes and all related structures Conjunctivae: conjunctivae normal Neck Neck: Yes full ROM and Yes no lymphadenopathy Resp Effort & Inspection: normal respiratory effort Auscultation: clear to auscultation bilaterally, no crackles, no rales, no rhonchi and no wheezes Cardio Rate: regular rate Rhythm: regular rhythm Skin General skin exam: no rashes or lesions noted Neuro General: patient oriented x3 Gait exam (Neuro): Normal gait present Extrem Other: Pulses, strength, sensation intact in bilateral lower extremities. Bilateral feet having dry cracking skin without overlying erythema or pain to palpation. General: Yes normal to inspection, Yes full ROM and No edema Psych Affect: normal affect Attitude: cooperative Insight: Good insight present (Psych) Judgement: Good judgement present (Psych) Coding Level of Care Code Est Pt Level 3 (02967) Diagnoses Controlled type 2 diabetes mellitus E11.9 Hypercholesterolemia E78.00 Simple chronic bronchitis J41.0 COPD type: chronic bronchitis Chronic bronchitis type: simple Primary hypertension I10 Hypertension type: primary hypertension Heel pain M79.673 Assessment & Plan Assessment & Plan (1) Controlled type 2 diabetes mellitus: Code(s): E11.9 - Type 2 diabetes mellitus without complications Category: Medical Plan: Decrease the amount of carbohydrates such as pasta, bread, rice, and potatoes and limit the amount of sweets. Although fruits are generally healthy they should be eaten in moderation as they are still high in sugar. Hemoglobin A1c goal of less than 7%. Currently working with [facility] endocr[place] (2) Hypercholesterolemia: Code(s): E78.00 - Pure hypercholesterolemia, unspecified Category: Medical Plan: Avoid foods that are high in cholesterol such as red meat, fried foods, eggs and baked goods. Triglyceride goal of less than 150 and LDL goal of less than 100. Continue on rosuvastatin 5 (3) COPD (chronic obstructive pulmonary disease): Code(s): J44.9 - Chronic obstructive pulmonary disease, unspecified Category: Medical Qualifiers: COPD type: chronic bronchitis Chronic bronchitis type: simple Qualified Code(s): J41.0 - Simple chronic bronchitis Plan: Not currently on medical management breathing well managed at this time (4) Hypertension: Code(s): I10 - Essential (primary) hypertension Category: Medical Qualifiers: Hypertension type: primary hypertension Qualified Code(s): I10 - Essential (primary) hypertension Plan: Continue on current blood pressure medication. Avoid salt intake and encourage healthy diet and regular exercise. (5) Heel pain: Code(s): M79.673 - Pain in unspecified foot Category: Medical Plan: Patient has bilateral heel pain most consistent with plantar fasciitis. Low concern for diabetic neuropathy due to lack of numbness and tingling sensation or burning sensation in bilateral feet. Good sensation of bilateral feet on exam today. The patient will implement specific foot stretches to alleviate symptoms consistent with plantar fasciitis. Using well-fitted supportive footwear or insoles is advised to mitigate further heel pain. Emphasis is placed on moisturizing cracked skin on the heels to prevent infection, and the patient can take ibuprofen to manage inflammation effectively. A cattle sorter referral is in order, with alternate options being considered due to prior scheduling issues. Continued symptom evaluation and adjustment of management strategies will be essential. Plan Patient was informed and verbally consented to the use of an ambient scribe for clinic note documentation during this visit. This note was constructed using voice recognition software. While every effort has been made to ensure accuracy and hotel custodian, still areas may have been included sometimes these areas may affect the content or meeting of the given symptoms. Total time spent caring for the patient today was 20 minutes. This includes time spent before the visit reviewing the chart, time spent during the visit, and time spent after the visit and documentation. Orders: Referrals Podiatry Referral B35.1 - Tinea unguium, E11.9 - Type 2 diabetes mellitus without complications, M79.673 - Pain in unspecified foot
[2024-11-16 08:38] VITALS: BP 102/62; PULSE 63; TEMP 36.1; O2SAT 99; BMI 24.8
== END 2024-11-16 09:15 | disposition home or self-care (01) ==
DX: E11.9 Type 2 diabetes mellitus without complications (principal); E78.00 Pure hypercholesterolemia, unspecified; J41.0 Simple chronic bronchitis; I10 Essential (primary) hypertension; M79.673 Pain in unspecified foot

== ENCOUNTER → 2024-11-16 08:14 | Outpatient (BNVA) | payer MEDICARE, SELFPAY | PROVIDERS: PCP Internal Medicine | DX: E11.9 Type 2 diabetes mellitus without complications (principal); E78.00 Pure hypercholesterolemia, unspecified; J41.0 Simple chronic bronchitis; I10 Essential (primary) hypertension; M79.673 Pain in unspecified foot | CPT/HCPCS: 99212 ==

== ENCOUNTER 2024-12-10 13:15 | Outpatient (AMB) | payer MEDICARE, SELFPAY ==
--- NOTE | 2024-12-10 09:21 | A.OFFVIS_ITS ---
Vital Signs 12/10/24 13:28 Height 5 ft 2 in Weight 134 lb 7.712 oz BMI 24.6 BP 100/60 Blood Pressure Location Rt brachial Position Sitting Pulse 70 Pulse Source Pulse Oximeter Pulse Oximetry (%) 97 Oxygen Delivery Method Room Air Intake Visit Reasons: DM Intake Note: Patient presents today for a follow-up on Type 2 Diabetes Mellitus: Last Diabetic eye exam was on: Pt has an appt on 12/11/2024 Last Podiatry exam was on: Patient does not see a Store Merchandiser Most recent HbA1c: 7.9%, 12/10/2024 Random Glucose- 167 mg/dL, Today Global Category Manager Required: No Accompanied by: Self / Same As Patient Allergies atorvastatin Allergy (Unknown, Verified 12/10/24 13:22) Rash pencillin Allergy (Unknown, Uncoded 12/10/24 13:22) Rash PFSH Medical History Controlled type 2 diabetes mellitus Low back pain Prostate cancer Abnormal PSA COPD (chronic obstructive pulmonary disease) Type 2 diabetes mellitus with hyperglycemia Hypertension Vitamin D deficiency Plantar fasciitis Hypercholesterolemia Dental abscess Surgical History H/O colonoscopy Hx of eye surgery History of bilateral cataract extraction History of hand surgery Family History Sister Breast cancer in situ Brother Alcohol abuse Prostate cancer CAD (coronary artery disease) Father Alcohol abuse Mother CAD (coronary artery disease) Brother Prostate cancer Brother Prostate cancer Social History Household Members: Spouse and Family Household Members Other:: , older daughter Housing: House Are you a primary child care attendant school to a significant other at home: No Do you presently have visiting nurse or other home services: No Alcohol intake: never Patient Tobacco Use Status: Former Tobacco user Tobacco use type: Cigarette Years Smoked: stopped 2017 e-Cigarette/Vaping Use: Never Used Second Hand Smoke Exposure: Yes service: No Current occupational status: employed Cognitive needs: No Hearing needs: No Vision needs: Yes Physical Exam Vital Signs: Last Vital Signs Pulse 70 12/10/24 13:28 BP 100/60 12/10/24 13:28 Pulse Ox 97 12/10/24 13:28 Oxygen Delivery Method Room Air 12/10/24 13:28 BMI result Body Mass Index 24.6 Results AMB Hemoglobin A1c AMB Hemoglobin A1c 7.9 % Last Edit by CECI Carballo on 12/10/24 13:45 Results Reviewed Results Reviewed: Laboratory Last Values Glucose (Clinic) 167 mg/dL (60-115) H 12/10/24 13:34 Hgb A1c (Clinic) 7.9 % (4.0-6.0) H 12/10/24 13:38 Assessment & Plan Assessment & Plan Orders: Orders AMB Hemoglobin A1c Today E11.9 - Type 2 diabetes mellitus without complications Coding
[2024-12-10 13:28] VITALS: BP 100/60; PULSE 70; O2SAT 97; BMI 24.6
[2024-12-10 13:40] LABS: Glucose, Whole Blood 167 mg/dL (60-115)
--- OUTSIDE RECORDS SUMMARY | 2024-12-10 16:05 | XMS_ITS ---
Author Organization [facility] Address [address] [place] [address] Care Team Providers Care Railroad Signal Operator Name Role Phone Matthew Dang MD Primary Care Provider Young Case Jr REASON FOR VISIT pathology/ 10 yr colon recall Encounters Encounter Location Date Provider Diagnosis [facility] [address] [place] [address] 08/15/2023 Young Covarrubias Jr Plan Of Treatment No Information Progress Notes * DEVANG BORDENDOB:1 11/18/1954 (67 yo M)Acc No.[id number]:08/15/2023 Patient:?COLE LONGNAHERJV VIMLASarah :1955???Age:67 Y???Sex:Male Address:[address] [place] [address] * true * Date:? Generated for Speedyi elier/Dionisio/eTransmitting on:?12/10/2024 04:05 PM EST
--- OUTSIDE RECORDS SUMMARY | 2024-12-10 16:05 | XMS_ITS | Patient Health Record ---
Author Organization [facility] Address [address] [place] [address] Care Team Providers Care Dispatcher Street Department Name Role Phone Matthew Dang MD Primary Care Provider Young Case Jr Allergies Allergen (clinical drug ingredient) Drug/Non Drug Allergy documented on EMR Reaction Allergy Type Onset Date Status Penicillin Unknown Drug Allergy Active Reason For Referral No Information Medications Medication SIG (Take, Route, Frequency, Duration) Notes Start Date End Date Status Pioglitazone HCl 30 MG 1 tablet Orally Once a day Active Irbesartan 150 MG 1 tablet Orally Once a day Active Trulicity 0.75 MG/0.5ML INJECT 0.75 MG ( 0.5 ML) SUBCUTANEOUSLY WEEKLY Subcutaneous for 28 Active metFORMIN HCl 500 MG 1 tablet with meals Orally Twice a day Active NovoLOG FlexPen 100 UNIT/ML Subcutaneous for 62 Active Rosuvastatin Calcium 5 MG Oral for 90 Active BD Pen Needle Ananya 2nd Gen 32G X 4 MM for 30 Active MiraLax (colon prep) 17 GM/SCOOP mixed with Gatorade or Crystal Light Orally begin at 5:00 p.m. the day before the procedure for 1 day 07/03/2023 Active Immunizations Vaccine Route Administration Date Status Comme nts Influenza Unknown 06/26/2022 Administered Influenza Unknown 03/05/2019 Refused Social History Tobacco Use: Social History Observation Description Date Details (start date - stop date) Former Smoker NA - NA Tobacco Use/Smoking Question Answer Notes Patient is a former smoker How long has it been since you last smoked? 1-5 years Problems Problem Type SNOMED Code ICD Code Onset Dates Problem Status W/U Status Risk Notes Problem 593612300 Colon cancer screening (Z12.11) Active confirmed Problem 514371860 Encounter for other preprocedural examination (Z01.818) Active confirmed Problem 07314354 Change in bowel movement (R19.8) Active confirmed Plan Of Treatment Pending Test Test Name Order Date Hemoccult Cards (Screening) 03/06/2019 Future Test Test Name Order Date COLONOSCOPY 02/10/2015 COLONOSCOPY 07/03/2023 Insurance Providers Payer Name Payer Address Payer Phone Subscriber Number Group Number Insured Name Patient Relationship to Insured Coverage Start Date Coverage End Date MEDICARE OF [place] [address] [place] [address] [id number] DEVANG BORDEN Self - patient is the insured [employer] ATT[employer] CLAIMS [address] [place] [address] [phone] [id number] DEVANG BORDEN Self - patient is the insured Medical (General) History Medical History History ICD Code Colonoscopy 15, diverticulosis, no lebron yps, ten-year followup hypertension diabetes mellitus COPD prostate cancer, radiation therapy and h ormone treatments Hyperlipidemia Surgical History Surgery Date(Month/Year) repair of traumatic left hand injury
--- OUTSIDE RECORDS SUMMARY | 2024-12-10 16:05 | XMS_ITS ---
Author Organization [facility] Address [address] [place] [address] Care Team Providers Care Junior Java Developer Name Role Phone Matthew Dang MD Primary Care Provider Young Case Jr [phone] REASON FOR VISIT markers Encounters Encounter Location Date Provider Diagnosis [facility] [address] [place] [address] 08/06/2023 Young Covarrubias Jr Plan Of Treatment No Information Progress Notes * DEVANG BORDENDOB:1 11/18/1954 (67 yo M)Acc No.[id number]:08/06/2023 Patient:?PEPITO BORDEN :1955???Age:67 Y???Sex:Male Address:[address] [place] [address] * true * Date:? Generated for Speedyi elier/Dionisio/eTransmitting on:?12/10/2024 04:05 PM EST
--- OUTSIDE RECORDS SUMMARY | 2024-12-10 16:05 | XMS_ITS ---
Author Organization [facility] Address [address] [place] [address] Care Team Providers Care License Distributor Name Role Phone Matthew Dang MD Primary Care Provider Young Case Jr [phone] REASON FOR VISIT change in bowels Encounters Encounter Location Date Provider Diagnosis [facility] Outpatient [address] [facility] [place] [id number] 08/09/2023 Young Covarrubias Jr Change in bowel habits R19.4 and Radiation proctitis K62.7 Assessments Encounter Date Diagnosis (ICD Code) Assessment Notes Treatment Notes Treatment Clinical Notes Section Notes 08/09/2023 Change in bowel habits (ICD-10 - R19.4) 08/09/2023 Radiation proctitis (ICD-10 - K62.7) Plan Of Treatment No Information Progress Notes * DEVANG BORDENDOB:1 11/18/1954 (69 yo M)Acc No.[id number]:08/09/2023 COLON WITH MAC Patient:?COLE LONGJANIE PEPITO ERTO Provider:?Young Covarrubias MD :1955???Age:67 Y???Sex:Male Zeyad e:08/09/2023 Address:[address] [place] Pcp:Matthew Dang MD Subjective: * Chief Complaints: * ???1. Change in bowels. * Medical History:? Objective: * Vitals:? Assessment: * Assessment: 1.?Change in bowel habits - R19.4 (Primary)???2.?Radiation proctitis - K62.7??? Plan: * Treatment: * Procedure Codes:?79866 COLON OSCOPY AND BIOPSY, 0529F INTRVL 3+YRS PTS CLNSCP DOCD * * The named appointment provid er may or may not be the originator of this progress note, and it is not deemed complete until electronically signed by the appointment provider. Sign off status: Pending * Provider:?Young Covarrubias MD Date:?1 10/09/2022 Generated for Giovanni thapa/Dionisio/Yinkasmitting on:?12/10/2024 04:05 PM EST
== END 2024-12-10 14:06 | disposition home or self-care (01) ==
PROVIDERS: PCP Internal Medicine; Visit Provider Nurse Practitioner Adult Health
DX: E11.9 Type 2 diabetes mellitus without complications (principal)

== ENCOUNTER → 2024-12-10 13:15 | Outpatient (BNVA) | payer MEDICARE, SELFPAY | PROVIDERS: PCP Internal Medicine; Visit Provider Nurse Practitioner Adult Health | DX: E11.65 Type 2 diabetes mellitus with hyperglycemia (principal); Z79.4 Long term (current) use of insulin | CPT/HCPCS: 82947; 83036; 99212 ==

== ENCOUNTER 2025-03-11 15:43 | Outpatient (AMB) | payer MEDICARE, SELFPAY ==
--- NOTE | 2025-03-11 15:26 | A.OFFVIS_ITS ---
Vital Signs 03/11/25 15:47 Height 5 ft 2 in Weight 136 lb 7.458 oz BMI 25.0 BP 100/64 Blood Pressure Location Rt brachial Position Sitting Pulse 86 Pulse Source Pulse Oximeter Pulse Oximetry (%) 98 Oxygen Delivery Method Room Air Intake Visit Reasons: T2DM Intake Note: Patient presents today for a follow-up on Type 2 Diabetes Mellitus: Last Diabetic eye exam was on: 12/11/2024, [facility] Last Podiatry exam was on: 03/11/2025 Most recent HbA1c: 7.0% Random Glucose- 162 mg/dL, Today Solar Fabrication Technician Required: No Solar Fabrication Technician Name: torri Information Interpreted: non-clinical & clinical Accompanied by: Spouse Allergies atorvastatin Allergy (Unknown, Verified 03/11/25 15:51) Rash pencillin Allergy (Unknown, Uncoded 12/10/24 13:22) Rash HPI Comments Details: This is a 69-year-old male here for f/u for type 2 diabetes. Patient was last seen 12/11/24. A1c at that time was 7.9% HgbA1C 03/11/25 %. He was diagnosed with type 2 diabetes appox 2020 Current regime: trulicity 0.75mg weekly basaglar 10 units daily 12-14 if sugars are higher metformin 500mg bid off novolog scale not using Freestyle ronald sensor 3 average glucose: [ ] 14 day continuous glucose sensor report reviewed Glucose Management indicator [ ] % Time CGM active [ ] % TIme in ranges: [ ] % very high (above 250) [ ] % high (181-250) [ ] % in range (70-180] [ ] % low (69-55) [ ] % very low (below 54) [ ] Glucose variability [ ] (target <36%) Interpretation of CGMS [ ] Patient denies symptoms with hyperglycemia. No recent hypoglycemia Patient has diabetic eye exam scheduled 12/11/2024. Denies neuropathy. Symptoms: No pain numbness, tingling or symptoms of claudication. He has a referral for Podiatry. Has toenail fungus. No nephropathy not on Moe/Arb 05/20/2024 eGFR>60 08/2024 microalbumin 11.0 HLD on low dose stat last LDL 62 as measured on 08/09/2024 . [facility] Medical History Controlled type 2 diabetes mellitus Low back pain Prostate cancer Abnormal PSA COPD (chronic obstructive pulmonary disease) Type 2 diabetes mellitus with hyperglycemia Hypertension Vitamin D deficiency Plantar fasciitis Hypercholesterolemia Dental abscess Surgical History H/O colonoscopy Hx of eye surgery History of bilateral cataract extraction History of hand surgery Family History Sister Breast cancer in situ Brother Alcohol abuse Prostate cancer CAD (coronary artery disease) Father Alcohol abuse Mother CAD (coronary artery disease) Brother Prostate cancer Brother Prostate cancer Social History Household Members: Spouse and Family Household Members Other:: , older daughter Housing: House Are you a primary assistant child care teacher to a significant other at home: No Do you presently have visiting nurse or other home services: No Alcohol intake: never Patient Tobacco Use Status: Former Tobacco user Tobacco use type: Cigarette Years Smoked: stopped 2018 e-Cigarette/Vaping Use: Never Used Second Hand Smoke Exposure: Yes service: No Current occupational status: employed Cognitive needs: No Hearing needs: No Vision needs: Yes Physical Exam Vital Signs: Last Vital Signs Pulse 86 03/11/25 15:47 BP 100/64 03/11/25 15:47 Pulse Ox 98 03/11/25 15:47 Oxygen Delivery Method Room Air 03/11/25 15:47 BMI result Body Mass Index 25.0 Results AMB Hemoglobin A1c AMB Hemoglobin A1c 7.0 % Last Edit by CECI Castro on 03/11/25 16:13 Results Reviewed Results Reviewed: Laboratory Last Values Glucose (Clinic) 162 mg/dL (60-115) H 03/11/25 15:57 Hgb A1c (Clinic) 7.0 % (4.0-6.0) H 03/11/25 16:12 Assessment & Plan Assessment & Plan Orders: Orders AMB Hemoglobin A1c 03/11/25 E11.9 - Type 2 diabetes mellitus without complications Lipid Panel 03/11/25 E11.65 - Type 2 diabetes mellitus with hyperglycemia, Z79.4 - terminal gauger (current) use of insulin Basic Metabolic Panel Fasting 03/11/25 E11.65 - Type 2 diabetes mellitus with hyperglycemia, Z79.4 - custodial (current) use of insulin Microalbumin, Random (w Creat) 03/11/25 E11.65 - Type 2 diabetes mellitus with hyperglycemia, Z79.4 - custodial (current) use of insulin Creatinine Urine 03/11/25 E11.65 - Type 2 diabetes mellitus with hyperglycemia, Z79.4 - terminal gauger (current) use of insulin Coding
[2025-03-11 15:47] VITALS: BP 100/64; PULSE 86; O2SAT 98; BMI 25.0
[2025-03-11 16:01] LABS: Glucose, Whole Blood 162 mg/dL (60-115)
--- OUTSIDE RECORDS SUMMARY | 2025-03-11 18:03 | XMS_ITS | Patient Health Record ---
Author Organization [facility] Address [address] [place] [address] Care Team Providers Care Line Crew Supervisor Name Role Phone Matthew Dang MD Primary [...] Problem Status W/U Status Risk Notes Problem [id number] Colon cancer screening (Z12.11) Active confirmed Problem [id number] Encounter for other preprocedural examination (Z01.818) Active confirmed Problem [id number] Change in bowel movement (R19.8) Active confirmed Plan Of Treatment Pending Test Test Name Order Date Hemoccult Cards (Screening) 03/06/2019 Future Test Test Name Order Date COLONOSCOPY 02/10/2015 COLONOSCOPY 07/03/2023 Insurance Providers Payer Name Payer Address Payer Phone Subscriber Number Group Number Insured Name Patient Relationship to Insured Coverage Start Date Coverage End Date MEDICARE OF [place] [address] [place] [address] [id number] DEVANG BORDEN Self - patient is the insured MEDEX ATTN CLAIMS [address] [place] [address] [id number] DEVANG BORDEN Self - patient is the insured Medical (General) History Medical History History ICD Code Colonoscopy 15, diverticulosis, no lebron yps, ten-year followup hypertension diabetes mellitus COPD prostate cancer, radiation therapy and h ormone treatments Hyperlipidemia Surgical History Surgery Date(Month/Year) repair of traumatic left hand injury
== END 2025-03-11 16:23 | disposition home or self-care (01) ==
LOC: HO.ENCR 15:43
PROVIDERS: PCP Internal Medicine; Visit Provider Nurse Practitioner Adult Health
DX: E11.9 Type 2 diabetes mellitus without complications (principal)

== ENCOUNTER → 2025-03-11 15:43 | Outpatient (BNVA) | payer MEDICARE, SELFPAY | PROVIDERS: PCP Internal Medicine; Visit Provider Nurse Practitioner Adult Health | DX: E11.65 Type 2 diabetes mellitus with hyperglycemia (principal); Z79.4 Long term (current) use of insulin | CPT/HCPCS: 82947; 83036; 99212 ==

== ENCOUNTER 2025-06-15 15:08 | Outpatient (AMB) | payer MEDICARE, SELFPAY ==
--- NOTE | 2025-06-15 15:09 | A.OFFVIS_ITS ---
Vital Signs 06/15/25 15:11 Height 5 ft 2 in Weight 134 lb 7.712 oz BMI 24.6 BP 102/60 Blood Pressure Location Rt brachial Position Sitting Pulse 69 Pulse Source Pulse Oximeter Pulse Oximetry (%) 98 Oxygen Delivery Method Room Air Intake Visit Reasons: T2DM Intake Note: Patient present today to follow up on Type 2 Diabetes Mellitus. Last Diabetic Eye exam: 12/11/2024, [facility] Last Podiatry Visit: 03/11/2025 Random Glucose: 163 mg/dL Hgb A1C: 6.7%, 06/15/2025 Ship'S Cook Required: Yes Ship'S Cook Language: Supervisor Lump Room Services: Ship'S Cook Offered & Declined Ship'S Cook Name: Significant Other Accompanied by: Significant Other Allergies atorvastatin Allergy (Unknown, Verified 06/15/25 15:14) Rash pencillin Allergy (Unknown, Uncoded 06/15/25 15:14) Rash Medication List - Last Reconciled 06/15/25 by JOSE Caraballo blood sugar diagnostic (FreeStyle Lite Strips) As directed check the BS TID blood-glucose meter (FreeStyle Lite Meter kit) As directed ciclopirox 8% 1 appl topical BEDTIME 4 weeks dulaglutide ([facility]) 0.75 mg (0.5 mL) subcut QWEEK flash glucose scanning reader (FreeStyle Ashley 2 [place]) As directed flash glucose sensor (FreeStyle Ashley 2 Sensor kit) As directed every 2 weeks flash glucose sensor (FreeStyle Ashley 2 Sensor kit) As directed glucose (Dex4 Glucose Quick Dissolve) 16 grams (4 x 4 gram) PO Q15M PRN insulin glargine (Basaglar KwikPen U-100 Insulin) 10 units (0.1 mL) subcut QAM 30 days insulin lispro 150-200 1 unit 201-250 2 unit 251-300 3 units over 300 4 units subcutaneously use as directed; 30 days lancets (FreeStyle Lancets) As directed check BS TID metformin 500 mg PO BID pen needle, diabetic USE DIRECTED 5 TIMES PER DAY rosuvastatin 5 mg PO DAILY HPI Comments Details: This is a 69-year-old male with a past medical history of type 2 diabetes, elevated TSH, lumbar radiculopathy, prostate cancer, COPD, hypertension and hyperlipidemia presenting for diabetic management. He was last seen by my colleague on 03/11/2025. He was diagnosed with type 2 diabetes a few years ago. Complications: Neuropathy Current medications: Trulicity 0.75 mg weekly, Basaglar 10 mg daily and 12-14 units if sugars are higher, metformin 500 mg twice a day He is off lispro scale. His dose of Basaglar varies. Sometimes they give 8-10 units if he is going to be doing a lot of work outside and blood sugar is lower. He has had some lows in the 60s after working outside which he does frequently. He treats with orange juice. He denies symptoms with hypoglycemia. HLD treated with Rosuastatin He follows with urology every 6 months right now for surveillance of prostate cancer in remission. He sees Podiatry. ROS: Constitutional: No fevers or chills. Eyes: Denies vision changes Respiratory: No shortness of breath Cardiovascular: No chest pain Neurologic: No headache, dizziness, syncope Endocrine: No cold or heat intolerance. No polyuria or polydipsia. Physical exam: Constitutional: Alert, in no distress. Neck: Supple, Full range of motion. No lymphadenopathy. No palpable thyroid masses. Respiratory: Clear to auscultation. Cardiovascular: S1 S2 regular. No murmurs. Extremities: Warm and well perfused. No clubbing, cyanosis or edema. Psychiatric: Normal mood and affect [facility] Medical History (Updated 06/15/25 @ 15:49 by JOSE Caraballo) Hypoglycemia unawareness associated with type 2 diabetes mellitus Controlled type 2 diabetes mellitus Low back pain Prostate cancer Abnormal PSA COPD (chronic obstructive pulmonary disease) Type 2 diabetes mellitus with hyperglycemia Hypertension Vitamin D deficiency Plantar fasciitis Hypercholesterolemia Dental abscess Surgical History H/O colonoscopy Hx of eye surgery History of bilateral cataract extraction History of hand surgery Family History Sister Breast cancer in situ Brother Alcohol abuse Prostate cancer CAD (coronary artery disease) Father Alcohol abuse Mother CAD (coronary artery disease) Brother Prostate cancer Brother Prostate cancer Social History Household Members: Spouse and Family Household Members Other:: , older daughter Housing: House Are you a primary care process manager to a significant other at home: No Do you presently have visiting nurse or other home services: No Alcohol intake: never Patient Tobacco Use Status: Former Tobacco user Tobacco use type: Cigarette Years Smoked: stopped 2017 e-Cigarette/Vaping Use: Never Used Second Hand Smoke Exposure: Yes service: No Current occupational status: employed Cognitive needs: No Hearing needs: No Vision needs: Yes Physical Exam Vital Signs: Last Vital Signs Pulse 69 06/15/25 15:11 BP 102/60 06/15/25 15:11 Pulse Ox 98 06/15/25 15:11 Oxygen Delivery Method Room Air 06/15/25 15:11 BMI result Body Mass Index 24.6 Office Procedures Glucose Monitoring Details Details: See [facility] [id number] - Glucose monitoring, continuous-physician I&R Procedure code (CPT) selection complete Results AMB Hemoglobin A1c AMB Hemoglobin A1c 6.7 % Last Edit by CECI Carballo on 06/15/25 15:30 Results Reviewed Results Reviewed: Laboratory Last Values Glucose (Clinic) 163 mg/dL (60-115) H 06/15/25 15:17 Hgb A1c (Clinic) 6.7 % (4.0-6.0) H 06/15/25 15:21 Assessment & Plan Assessment & Plan (1) Controlled type 2 diabetes mellitus: Code(s): E11.9 - Type 2 diabetes mellitus without complications Category: Medical (2) Hypoglycemia unawareness associated with type 2 diabetes mellitus: Code(s): E11.649 - Type 2 diabetes mellitus with hypoglycemia without coma Category: Medical (3) Hypercholesterolemia: Code(s): E78.00 - Pure hypercholesterolemia, unspecified Category: Medical Plan In summary this is a 69-year-old male with controlled type 2 diabetes. We discussed increasing his dose of Trulicity and stopping insulin however they are concerned about potential side effects and weight loss with the medication so this is deferred. I recommended decreasing his dose of Basaglar to 6 units at night if he is working outside the next day. Otherwise he can remain on 10 units nightly. If he has continued low sugars he should change to 8 units nightly. Continue metformin 500 mg twice a day. He has some hypoglycemia unawareness. We reviewed treatment of hypoglycemia. Glucose tablets sent to pharmacy. CGM is medically necessary. He will have lab work completed. Continue rosuvastatin for treatment of hyperlipidemia. Follow up in 3 months. Orders: Orders Microalbumin, Random (w Creat) Today E11.65 - Type 2 diabetes mellitus with hyperglycemia, E11.9 - Type 2 diabetes mellitus without complications, I10 - Essential (primary) hypertension, Z79.4 - custodial (current) use of insulin Vitamin B12 Today E11.65 - Type 2 diabetes mellitus with hyperglycemia, I10 - Essential (primary) hypertension, Z79.4 - custodial (current) use of insulin, Z91.89 - Other specified personal risk factors, not elsewhere classified AMB Hemoglobin A1c Today E11.65 - Type 2 diabetes mellitus with hyperglycemia, E11.9 - Type 2 diabetes mellitus without complications, I10 - Essential (primary) hypertension, Z79.4 - custodial (current) use of insulin Alanine Aminotransferase Today E11.65 - Type 2 diabetes mellitus with hyperglycemia, I10 - Essential (primary) hypertension, Z79.4 - custodial (current) use of insulin Aspartate Amino Transferase Today E11.65 - Type 2 diabetes mellitus with hyperglycemia, I10 - Essential (primary) hypertension, Z79.4 - custodial (current) use of insulin Creatinine Today E11.65 - Type 2 diabetes mellitus with hyperglycemia, E11.9 - Type 2 diabetes mellitus without complications, I10 - Essential (primary) hypertension, Z79.4 - custodial (current) use of insulin Lipid Panel Today E11.65 - Type 2 diabetes mellitus with hyperglycemia, E78.5 - Hyperlipidemia, unspecified, I10 - Essential (primary) hypertension, Z79.4 - termite control technician (current) use of insulin TSH reflex Free T4 Today E11.65 - Type 2 diabetes mellitus with hyperglycemia, I10 - Essential (primary) hypertension, Z79.4 - termite control technician (current) use of insulin AMB Glucose Monitoring Today E11.9 - Type 2 diabetes mellitus without complications Medications: New glucose (Dex4 Glucose Quick Dissolve) until symptoms of low blood sugar are controlled 16 grams (4 x 4 gram) PO Q15M PRN 30 tabs 3RF hypoglycemia Coding Level of Care Code Est Pt Level 4 (08094) Diagnoses Controlled type 2 diabetes mellitus E11.9 Hypoglycemia unawareness associated with type 2 diabetes mellitus E11.649 Hypercholesterolemia E78.00 CPT Codes Details - CPT: 82331 - Glucose monitoring, continuous-physician I&R ([id number])
[2025-06-15 15:11] VITALS: BP 102/60; PULSE 69; O2SAT 98; BMI 24.6
[2025-06-15 15:22] LABS: Glucose, Whole Blood 163 mg/dL (60-115)
--- OUTSIDE RECORDS SUMMARY | 2025-06-15 17:30 | XMS_ITS | Patient Health Record ---
Author Organization [facility] Address [address] [place] [address] Care Team Providers Care Filling Carrier Name Role Phone Mathtew Dang MD Primary Care Provider Young Case [...] Problem Status W/U Status Risk Notes Problem [id number] Colon cancer screening (Z12.11) Active confirmed Problem [id number] Encounter for other preprocedural examination (Z01.818) Active confirmed Problem 68374167 Change in bowel movement (R19.8) Active confirmed Plan Of Treatment Pending Test Test Name Order Date Hemoccult Cards (Screening) 03/06/2019 Future Test Test Name Order Date COLONOSCOPY 02/10/2015 COLONOSCOPY 07/03/2023 Insurance Providers Payer Name Payer Address Payer Phone Subscriber Number Group Number Insured Name Patient Relationship to Insured Coverage Start Date Coverage End Date [place]ARE [place] [address] [place] [address] [phone] [id number] DEVANG BORDEN Self - patient is the insured MEDEX ATTN CLAIMS [address] [place] [address] [id number] DEVANG BORDEN Self - patient is the insured Medical (General) History Medical History History ICD Code Colonoscopy 15, diverticulosis, no lebron yps, ten-year followup hypertension diabetes mellitus COPD prostate cancer, radiation therapy and h ormone treatments Hyperlipidemia Surgical History Surgery Date(Month/Year) repair of traumatic left hand injury
== END 2025-06-15 15:47 | disposition home or self-care (01) ==
LOC: HO.ENCR 15:08
PROVIDERS: PCP Internal Medicine; Visit Provider Physician Assistant Medical
DX: E11.9 Type 2 diabetes mellitus without complications (principal); I10 Essential (primary) hypertension; E11.65 Type 2 diabetes mellitus with hyperglycemia; Z79.4 Long term (current) use of insulin; E11.649 Type 2 diabetes mellitus with hypoglycemia without coma; E78.00 Pure hypercholesterolemia, unspecified

== ENCOUNTER → 2025-06-15 15:08 | Outpatient (BNVA) | payer MEDICARE, SELFPAY | PROVIDERS: PCP Internal Medicine; Visit Provider Physician Assistant Medical | DX: E11.649 Type 2 diabetes mellitus with hypoglycemia without coma (principal); E78.00 Pure hypercholesterolemia, unspecified; Z79.4 Long term (current) use of insulin; Z79.85 Long-term (current) use of injectable non-insulin antidiabetic drugs | CPT/HCPCS: 82947; 83036; 99212 ==

== ENCOUNTER 2025-06-23 09:51 | Outpatient (AMB) | payer MEDICARE, SELFPAY ==
--- NOTE | 2025-06-23 09:54 | A.OFFPC_ITS ---
Vital Signs 06/23/25 09:56 Height 5 ft 2 in Weight 136 lb 2 oz BMI 24.9 BP 122/60 Blood Pressure Location Lt brachial Position Sitting Pulse 70 Pulse Source Pulse Oximeter Temp 97.1 F Temp Source Temporal Artery Scan Pulse Oximetry (%) 98 Oxygen Delivery Method Room Air Intake Visit Reasons: f/u DM - see comments Accompanied by: Spouse Allergies atorvastatin Allergy (Unknown, Verified 06/23/25 09:59) Rash pencillin Allergy (Unknown, Uncoded 06/23/25 09:59) Rash Medication List - Last Reconciled 06/23/25 by Matthew Dang MD blood sugar diagnostic (FreeStyle Lite Strips) As directed check the BS TID blood-glucose meter (FreeStyle Lite Meter kit) As directed ciclopirox 8% 1 appl topical BEDTIME 4 weeks dulaglutide 1.5 mg (0.5 mL) subcut QWEEK flash glucose scanning reader (FreeStyle Ashley 2 Alpha) As directed flash glucose sensor (FreeStyle Ashley 2 Sensor kit) As directed every 2 weeks flash glucose sensor (FreeStyle Ashley 2 Sensor kit) As directed glucose (Dex4 Glucose Quick Dissolve) 16 grams (4 x 4 gram) PO Q15M PRN insulin lispro 150-200 1 unit 201-250 2 unit 251-300 3 units over 300 4 units subcutaneously use as directed; 30 days lancets (FreeStyle Lancets) As directed check BS TID metformin 500 mg PO BID pen needle, diabetic USE DIRECTED 5 TIMES PER DAY rosuvastatin 5 mg PO DAILY Tobacco use date assessed: 06/23/25 Fall risk assessment: No Falls in past year Last assessed Fall Risk: 06/23/25 Dental Screening Dental Screen Date: 06/23/25 Did you have a dental visit in the last 12 months?: Yes Did you have a dental problem in the last 6 months where you did not have access to dental care?: No Was dental information given to patient?: Patient has dentist HPI f/u DM - see comments HPI Details family is concerned about memory and MMSE done - [facility] Medical History Hypoglycemia unawareness associated with type 2 diabetes mellitus Controlled type 2 diabetes mellitus Low back pain Prostate cancer Abnormal PSA COPD (chronic obstructive pulmonary disease) Type 2 diabetes mellitus with hyperglycemia Hypertension Vitamin D deficiency Plantar fasciitis Hypercholesterolemia Dental abscess Surgical History H/O colonoscopy Hx of eye surgery History of bilateral cataract extraction History of hand surgery Family History Sister Breast cancer in situ Brother Alcohol abuse Prostate cancer CAD (coronary artery disease) Father Alcohol abuse Mother CAD (coronary artery disease) Brother Prostate cancer Brother Prostate cancer Social History Household Members: Spouse and Family Household Members Other:: , older daughter Housing: House Are you a primary resident care director to a significant other at home: No Do you presently have visiting nurse or other home services: No Alcohol intake: never Patient Tobacco Use Status: Former Tobacco user Tobacco use type: Cigarette Years Smoked: stopped 2018 e-Cigarette/Vaping Use: Never Used Second Hand Smoke Exposure: Yes service: No Current occupational status: employed Cognitive needs: No Hearing needs: No Vision needs: Yes Questionnaire PHQ-9 Over the last 2 weeks, how often have you been bothered by any of the following problems? 1. Little interest or pleasure in doing things: not at all 2. Feeling down, depressed, or hopeless: not at all 3. Trouble falling or staying asleep, or sleeping too much: not at all 4. Feeling tired or having little energy: not at all 5. Poor appetite or overeating: not at all 6. Feeling bad about yourself - or that you are a failure or have let yourself or your family down: not at all 7. Trouble concentrating on things, such as reading the newspaper or watching television: not at all 8. Moving or speaking so slowly that other people could have noticed. Or the opposite - being so fidgety or restless that you have been moving around a lot more than usual: not at all 9. Thoughts that you would be better off or of hurting yourself in some way: not at all Total score: 0 Depression Screening Interpretation: Negative Depression Screening Done: Yes Source: Developed by Drs. Abiel Mireles, Katherin Marquis, Tez Nieves and colleagues, with an educational mercy from [employer]. Thrive Questionnaire Date Thrive assessed: 11/16/24 I am a: Patient What is your living situation today?: I have a steady place to live Within the past 12 months, did the food you bought not last and you didn't have the money to get more?: Never true Within the past 12 months, did you worry whether your food would run out before you got money to buy more?: Never true Do you have trouble paying for medicines?: No Do you have trouble getting transportation to medical appointments?: No Do you have trouble paying your heating and electricity bill?: No Do you have trouble taking care of your child, family member or friend?: No Do you have trouble with day-to-day activities such as bathing, preparing meals, shopping, managing finances, etc.?: No Are you currently unemployed and looking for a job?: No Are you interested in more education?: No Please select the resources that you would like help with: None Currently or been in a relationship where the following occur: No concerns reported THRIVE Score: 0 AUDIT C Alcohol Use Questionnaire (AUDIT-C) 1. How often do you have a drink containing alcohol?: Never 3. How often do you have six or more drinks on one occasion?: Never Total Score: 0 KYLE-7 AMB Questionnaire KYLE-7 Date KYLE - 7 assessed: 11/16/24 Feeling nervous, anxious, or on edge: 0 = Not at all Not being able to stop or control worryin = Not at all Worrying too much about different things: 0 = Not at all Trouble relaxin = Not at all Being so restless that it is hard to sit still: 0 = Not at all Becoming easily annoyed or irritable: 0 = Not at all Feeling afraid as if something awful might happen: 0 = Not at all Total KYLE-7 score (0-4 normal; 5-9 mild; 10-14 moderate; 15-21 severe): 0 Source: Developed by Drs. Abiel Mireles, Katherin Marquis, Tez Nieves and colleagues, with an educational mercy from [employer]. Physical exam (Primary Care) Vital Signs: Last Vital Signs Temp 97.1 F 06/23/25 09:56 Pulse 70 06/23/25 09:56 BP 122/60 06/23/25 09:56 Pulse Ox 98 06/23/25 09:56 Oxygen Delivery Method Room Air 06/23/25 09:56 BMI result Body Mass Index 24.9 Tobacco/Smoking Status: Tobacco use Status Tobacco use date assessed 06/23/25 06/23/25 10:01 Patient Tobacco Use Status Former Tobacco user 06/23/25 09:54 Tobacco use type Cigarette 06/23/25 09:54 e-Cigarette/Vaping Use Never Used 06/23/25 09:54 PHQ-9: PHQ-9 Score PHQ-9: Total score 0 06/23/25 15:05 Depression Screening Interpretation: Negative Thrive Assessment: Date of Thrive Assessment Date Thrive assessed 11/16/24 06/23/25 09:54 Currently or been in a relationship where the following occur: No concerns reported Const General: alert; No acute distress Eyes Conjunctivae: conjunctivae normal Resp Auscultation: clear to auscultation bilaterally Cardio Rate: regular rate Rhythm: regular rhythm GI Inspection: Yes normal to inspection Extrem General: Yes normal to inspection and No edema Coding Level of Care Code Est Pt Level 4 (58104) Complex EM visit Add On G2211 Diagnoses Type 2 diabetes mellitus with hyperglycemia, with long-term current use of insulin E11.65; Z79.4 Diabetes mellitus mcc insulin use: with tank terminal gauger use Hypercholesterolemia E78.00 Prostate cancer C61 Simple chronic bronchitis J41.0 COPD type: chronic bronchitis Chronic bronchitis type: simple Cognitive impairment R41.89 Assessment & Plan Assessment & Plan (1) Type 2 diabetes mellitus with hyperglycemia: Comment: Dr. Aguirre Code(s): E11.65 - Type 2 diabetes mellitus with hyperglycemia Category: Medical Qualifiers: Diabetes mellitus tank terminal gauger insulin use: with mcc use Qualified Code(s): E11.65 - Type 2 diabetes mellitus with hyperglycemia; Z79.4 - half-way (current) use of insulin Plan: Decrease the amount of carbohydrate intake, pasta, bread, rice and potatoes are all sugar and that is aside from all the sweet stuff, remember that fruits are good but they are Sweet also. Patient follows up with endocrinology hemoglobin A1c goal of less than 7.0 patient is on Basaglar and lispro metformin 500 mg twice a day up-to-date with ophthalmology no retinopathy (2) Hypercholesterolemia: Code(s): E78.00 - Pure hypercholesterolemia, unspecified Category: Medical Plan: Avoid fried foods, chicken skin, eggs, butter margarine, pastries and meat. Be it pork or beef they have a lot of cholesterol patient takes rosuvastatin 5 mg once a day patient will need blood work in 2 months (3) Prostate cancer: Comment: Courtney 9 prostate cancer external beam radiation January 2022, Herberttara therapy Code(s): C61 - Malignant neoplasm of prostate Category: Medical Plan: Continuing to monitor follows up with urology (4) COPD (chronic obstructive pulmonary disease): Code(s): J44.9 - Chronic obstructive pulmonary disease, unspecified Category: Medical Qualifiers: COPD type: chronic bronchitis Chronic bronchitis type: simple Qualified Code(s): J41.0 - Simple chronic bronchitis Plan: Stable with no problems with shortness of breath (5) Cognitive impairment: Code(s): R41.89 - Other symptoms and signs involving cognitive functions and awareness Category: Medical Plan History of Present Illness The patient is a 69-year-old male presenting for a follow-up visit. He has a history of diabetes mellitus, chronic obstructive pulmonary disease (COPD), hypercholesterolemia, hypertension, and prostate cancer. The patient's diabetes management includes a hemoglobin A1c of 6.7, with recent discussions about adjusting medications such as Trulicity and Basaglar due to concerns about low blood sugar levels. The medical records analyst advised increasing Trulicity and stopping insulin, but this was deferred due to potential weight effects. The patient is up to date with podiatry and ophthalmology, with no retinopathy noted. His last colonoscopy was in August 2023, and he is due for blood work in one to two months. The patient has a history of anemia, with the last blood work showing chronic anemia. His cholesterol management includes taking rosuvastatin, with the last LDL recorded at 62. Memory concerns were raised during the visit, with observations of decreased focus and potential cognitive decline. A CAT scan and referrals to neurology and neuropsychiatry were planned to further evaluate these concerns. Health Maintenance - Colonoscopy last performed in August 2023 - Up to date with podiatry and ophthalmology, no retinopathy noted - Blood work planned in one to two months - Cholesterol management with rosuvastatin, LDL last recorded at 62 Social History - Exercise: Engages in yard work and car maintenance, less active during winter Review of Systems - Neurological: Reports memory concerns and decreased focus - Respiratory: Denies shortness of breath Physical Exam Results - Labs: Hemoglobin A1c 6.7, LDL 62, chronic anemia noted - Tests: No retinopathy on ophthalmology exam Plan Patient was informed and verbally consented to the use of an ambient scribe for clinic note documentation during this visit. 1. Diabetes Mellitus The patient's diabetes management includes maintaining a hemoglobin A1c goal of less than 7.0. There were discussions about adjusting medications, including increasing Trulicity and stopping Basaglar, due to concerns about low blood sugar levels. The medical records analyst's plan to increase Trulicity was deferred due to potential weight effects, and the patient continues on a regimen including metformin and lispro. 2. Chronic Obstructive Pulmonary Disease (Copd) The patient is stable with no reported issues of shortness of breath. 3. Hypercholesterolemia The patient continues on rosuvastatin 5 mg daily, with the last LDL recorded at 62. Follow-up blood work is planned in two to three months to monitor cholesterol levels. 4. Hypertension The patient's blood pressure management was not specifically detailed in the conversation, but it is implied to be part of ongoing care. 5. Prostate Cancer The patient follows up with urology and is stable with no current issues reported. 6. Anemia The patient has chronic anemia, as noted in the last blood work. 7. Memory Concerns Memory concerns were raised, with observations of decreased focus and potential cognitive decline. A CAT scan and referrals to neurology and neuropsychiatry were planned to further evaluate these concerns. Discussion Notes During the visit, we discussed the management of the patient's diabetes, including the potential adjustment of Trulicity and Basaglar due to concerns about low blood sugar levels. We also addressed memory concerns, planning for a CAT scan and referrals to neurology and neuropsychiatry to further evaluate cognitive function. Patient Instructions - Continue current diabetes medications and monitor blood sugar levels closely. - Schedule and complete blood work in one to two months. - Follow up with neurology and neuropsychiatry as planned. - Maintain regular follow-ups with urology and ophthalmology. Orders: Orders Comprehensive Met. Panel Today E11.65 - Type 2 diabetes mellitus with hyperglycemia, Z79.4 - ocean transportation intermediary (current) use of insulin Microalbumin, Random (w Creat) Today E11.65 - Type 2 diabetes mellitus with hyperglycemia, Z79.4 - half-way (current) use of insulin Creatinine Urine Today E11.65 - Type 2 diabetes mellitus with hyperglycemia, Z79.4 - ocean transportation intermediary (current) use of insulin Hemoglobin A1c Today E11.65 - Type 2 diabetes mellitus with hyperglycemia, Z79.4 - ocean transportation intermediary (current) use of insulin Lipid Panel Today E11.65 - Type 2 diabetes mellitus with hyperglycemia, E78.00 - Pure hypercholesterolemia, unspecified, Z79.4 - half-way (current) use of insulin IRON PROFILE Today E11.65 - Type 2 diabetes mellitus with hyperglycemia, Z79.4 - ocean transportation intermediary (current) use of insulin Vitamin B12 and Folate Today E11.65 - Type 2 diabetes mellitus with hyperglycemia, Z79.4 - half-way (current) use of insulin Vitamin B2 (Riboflavin) Today R41.89 - Other symptoms and signs involving cognitive functions and awareness Syphilis Screen Today R41.89 - Other symptoms and signs involving cognitive functions and awareness CT head/brain wo IV con Today R41.89 - Other symptoms and signs involving cognitive functions and awareness Complete Blood Count Auto Diff Today E11.65 - Type 2 diabetes mellitus with hyperglycemia, Z79.4 - half-way (current) use of insulin Free T4 (Free Thyroxine) Today E11.65 - Type 2 diabetes mellitus with hyperglycemia, Z79.4 - ocean transportation intermediary (current) use of insulin Ferritin Today E11.65 - Type 2 diabetes mellitus with hyperglycemia, Z79.4 - half-way (current) use of insulin Reticulocyte Count Today E11.65 - Type 2 diabetes mellitus with hyperglycemia, Z79.4 - ocean transportation intermediary (current) use of insulin PSA,Total (Free>4and<10) Today E11.65 - Type 2 diabetes mellitus with hyperglycemia, Z79.4 - half-way (current) use of insulin Thyroid Stimulating Hormone Today E11.65 - Type 2 diabetes mellitus with hyperglycemia, Z79.4 - half-way (current) use of insulin UA CC w/rflx Micro + Cult Today E11.65 - Type 2 diabetes mellitus with hyperglycemia, R30.0 - Dysuria, Z79.4 - ocean transportation intermediary (current) use of insulin Referrals Neuropsychiatry Referral R41.89 - Other symptoms and signs involving cognitive functions and awareness Medications: Changed From dulaglutide (Trulicity) 0.75 mg (0.5 mL) subcut QWEEK 2 mL 3RF E11.65 - Type 2 diabetes mellitus with hyperglycemia, Z79.4 - ocean transportation intermediary (current) use of insulin To dulaglutide 1.5 mg (0.5 mL) subcut QWEEK 2 mL 3RF E11.65 - Type 2 diabetes mellitus with hyperglycemia, Z79.4 - ocean transportation intermediary (current) use of insulin Discontinued insulin glargine (Basaglar KwikPen U-100 Insulin) Discontinued Reason: Doctor's Order 10 units (0.1 mL) subcut QAM 30 days 3 mL 6RF E11.65 - Type 2 diabetes mellitus with hyperglycemia
[2025-06-23 09:56] VITALS: BP 122/60; PULSE 70; TEMP 36.2; O2SAT 98; BMI 24.9
--- OUTSIDE RECORDS SUMMARY | 2025-06-23 11:42 | XMS_ITS | Patient Health Record ---
Author Organization [facility] Address [address] [place] [address] Care Team Providers Care Block Layer Name Role Phone Matthew Dang MD Primary Care Provider Young Case Jr [phone] Allergies Allergen (clinical drug ingredient) Drug/Non Drug [...] Problem Status W/U Status Risk Notes Problem [id number] Colon cancer screening (Z12.11) Active confirmed Problem [id number] Encounter for other preprocedural examination (Z01.818) Active confirmed Problem [id number] Change in bowel movement (R19.8) Active confirmed Plan Of Treatment Pending Test Test Name Order Date Hemoccult Cards (Screening) 03/06/2019 Future Test Test Name Order Date COLONOSCOPY 02/10/2015 COLONOSCOPY 07/03/2023 Insurance Providers Payer Name Payer Address Payer Phone Subscriber Number Group Number Insured Name Patient Relationship to Insured Coverage Start Date Coverage End Date MEDICARE OF [place] [address] [place] [address] [id number] DEVANG BORDEN Self - patient is the insured [employer] ATT[employer] CLAIMS [address] [place] [address] [id number] DEVANG BORDEN Self - patient is the insured Medical (General) History Medical History History ICD Code Colonoscopy 15, diverticulosis, no lebron yps, ten-year followup hypertension diabetes mellitus COPD prostate cancer, radiation therapy and h ormone treatments Hyperlipidemia Surgical History Surgery Date(Month/Year) repair of traumatic left hand injury
== END 2025-06-23 11:00 | disposition home or self-care (01) ==
LOC: HO.HMCH 09:52
PROVIDERS: PCP Internal Medicine; Visit Provider Internal Medicine
DX: E11.65 Type 2 diabetes mellitus with hyperglycemia (principal); Z79.4 Long term (current) use of insulin; C61 Malignant neoplasm of prostate; J41.0 Simple chronic bronchitis; E78.00 Pure hypercholesterolemia, unspecified; R41.89 Other symptoms and signs involving cognitive functions and awareness

== ENCOUNTER → 2025-06-23 09:51 | Outpatient (BNVA) | payer MEDICARE, SELFPAY | PROVIDERS: PCP Internal Medicine; Visit Provider Internal Medicine | DX: E11.65 Type 2 diabetes mellitus with hyperglycemia (principal); E78.00 Pure hypercholesterolemia, unspecified; C61 Malignant neoplasm of prostate; J41.0 Simple chronic bronchitis; R41.89 Other symptoms and signs involving cognitive functions and awareness; I10 Essential (primary) hypertension; Z79.4 Long term (current) use of insulin; D64.9 Anemia, unspecified | CPT/HCPCS: 96127; 99212 ==

== ENCOUNTER 2025-07-17 09:27 | Outpatient (REF) | payer MEDICARE, SELFPAY ==
--- OUTSIDE RECORDS SUMMARY | 2025-07-17 09:30 | XMS_ITS | Patient Health Record ---
Author Organization [facility] Address [address] [place] [address] Care Team Providers Care It Disaster Recovery Manager Name Role Phone Matthew Dang MD Primary Care Provider Young Case Jr Unavailable Allergies Allergen (clinical drug ingredient) Drug/Non Drug [...] 0.75 MG ( 0.5 ML) SUBCUTANEOUSLY WEEKLY Subcutaneous; Duration: 28 Activ e metFORMIN HCl 500 MG 1 tablet with meals Orally Twice a day Active NovoLOG FlexPen 100 UNIT/ML Subcutaneous; Duration: 62 A ctive Rosuvastatin Calcium 5 MG Oral; Duration: 90 Active BD Pen Needle Ananya 2nd Gen 32G X 4 MM ; Duration: 30 Active MiraLax (colon prep) 17 GM/SCOOP mixed with Gatorade or Crystal Light Orally begin at 5:00 p.m. the day before the procedure; Duration: 1 day 07/03/2023 Active Immunizations Vaccine Route [...] Problem Status W/U Status Risk Notes Problem Colon cancer screening (030744611) Colon cancer screening (Z12.11) Active confirmed Problem Pre-procedure evaluation check (716351792) Encounter for other preprocedural examination (Z01.818) Active confirmed Problem Altered bowel function (22106621) Change in bowel movement (R19.8) Active confirmed Plan Of Treatment Pending Test Test Name Order Date Hemoccult Cards (Screening) 03/06/2019 Future Test Test Name Order Date COLONOSCOPY 02/10/2015 COLONOSCOPY 07/03/2023 Insurance Providers Payer Name Payer Address Payer Phone Subscriber Number Group Number Insured Name Patient Relationship to Insured Coverage Start Date Coverage End Date [place]ARE OF [place] [address] [place] [address] [id number] DEVANG BORDEN Self - patient is the insured MED[employer] ATTN CLAIMS [address] [place] [address] [phone] [id number] DEVANG BORDEN Self - patient is the insured Medical (General) History Medical History History ICD Code Colonoscopy 02/18, diverticulosis, no lebron yps, ten-year followup hypertension diabetes mellitus COPD prostate cancer, radiation therapy and h ormone treatments Hyperlipidemia Surgical History Surgery Date(Month/Year) repair of traumatic left hand injury
== END 2025-07-17 09:28 | disposition home or self-care (01) ==
LOC: HO.CT 09:27
PROVIDERS: PCP Internal Medicine; Visit Provider Internal Medicine
DX: R41.89 Other symptoms and signs involving cognitive functions and awareness (principal)
CPT/HCPCS: 70450

== ENCOUNTER → 2025-07-17 09:30 | Outpatient (BNV) | payer MEDICARE, SELFPAY | PROVIDERS: PCP Internal Medicine; Visit Provider Radiology Diagnostic Radiology | DX: R41.89 Other symptoms and signs involving cognitive functions and awareness (principal) | CPT/HCPCS: 70450 ==

== ENCOUNTER 2025-09-14 13:43 | Outpatient (REF) | payer MEDICARE, SELFPAY ==
--- NOTE | ~2025-09-14 | XR_ITS ---
EXAMINATION: XR FOOT, LEFT CLINICAL INFORMATION: L03.116 - Cellulitis of left lower limb COMPARISON: None available. TECHNIQUE: AP, lateral, and oblique views of the left foot. FINDINGS: Bone alignment is normal. No fracture or dislocation. Normal joint spaces. No x-ray evidence of osteomyelitis. Small calcaneal spurs. Soft tissues otherwise normal. No abnormal air in the soft tissues or radiopaque foreign body. XR/XR foot LT min 3V IMPRESSION: No fracture or x-ray evidence of osteomyelitis. Electronically signed by: Kaley Carrillo MD 09/14/2025 03:52 PM EST
--- OUTSIDE RECORDS SUMMARY | 2025-09-14 21:43 | XMS_ITS | Data Portability ---
Author Organization [facility] Address [address] [place] [address] Assessment No assessment recorded. Plan of Treatment Reminders Order Date Submit Date Provider Last Modified By Organization Details Last Modified Time Details Appointments FOLLOW UP 15 2024 11:00A M Adin Grover DPM Not available Not available Not available Lab None recorded . Referral None recorded . Procedures None recorded . Surgeries None recorded . Imaging None recorded . Medication Orders None recorded . Patient TargetsNo targets recorded. Patient Instructions Encounter Date Encounter Id Patient Instructions Last Modified By Organization Details Last Modified Time 09/07/2025 [id number] The patient will continue his home going instructions as outlined. He will continue daily dressing changes. He will monitor for signs or symptoms of infection. [email or web address] Not available 09/07/2025 11:22:27 Reason for Referral None Reported. Problems Name Problem SNOMED Code Status Onset Date Resolution Date Notes Provider Name and Address Organization Details Recorded Time Ulcer of toe of left foot Active 2024 Adin Grover DPM [address] [facility] [place], [address], [facility] 13:27:17 Cellulitis of toe of right foot Active 2024 Adin Grover DPM [address] [facility] [place], [address], [facility] 13:29:45 Peripheral neuropathy due to type 2 diabetes mellitus 2685796714684 Active 2024 Adin Grover DPM [address] [facility] [place], [address], [facility] 11:20:09 Type 2 diabetes mellitus with peripheral angiopathy 516848293 Active 2024 Adin Grover DPM [address] [facility], [facility] [place], [address], [facility] 5 11:20:51 Ulcer of toe due to type 2 diabetes mellitus 3120276017222 01 Active 2024 Adin Grover DPM [address] [facility], [place] [place], [address], [facility] 5 11:21:20 Cellulitis of toe of left foot Active 2024 Adin Grover DPM [address] [facility], [facility] [place], [address], [facility] 11:21:39 Problem Notes None recorded. Medical Equipment None Reported. Medications Name Sig Start Date Stop Date Status Note LastModified by Organization Details LastModified Time amoxicillin 500 mg capsule TAKE 1 TABLET BY MOUTH 3 TIMES A DAY 09/07 completed Not Available Not Available Not Available metformin 500 mg tablet TAKE 1 TABLET BY MOUTH TWICE A DAY active Not Available Not Available No t Available erythromyci n 500 mg tablet TAKE 1 TABLET BY MOUTH EVERY 12 HOURS FOR 10 DAYS active Not Available Not Available No t Available clindamycin HCl 300 mg capsule TAKE 1 CAPSULE BY MOUTH 3 TIMES A DAY 09/07 completed Not Available Not Available Not Available azithromyci n 250 mg tablet TAKE 2 TABLETS BY MOUTH TODAY, THEN TAKE 1 TABLET DAILY FOR 4 DAYS DIRECTED 09/07 completed Not Available Not Available Not Available ibuprofen 600 mg tablet TAKE 1 TABLET BY MOUTH EVERY 6 TO 8 HOURS NEEDED active Not Available Not Available No t Available ondansetron 4 mg disintegrat ing tablet PLACE 1 TAB UNDER TONGUE TO DISSOLVE TO HELP NAUSEA EVERY 4-6 HOURS NEEDED FOR NAUSEA active Not Available Not Available No t Available rosuvastati n 5 mg tablet TAKE 1 TABLET BY MOUTH DAILY active Not Available Not Available No t Available chlorhexidi ne gluconate 0.12 % mouthwash SWISH AND SPIT 15 ML IN THE MORNING AND IN THE EVENING FOR 2 WEEKS active Not Available Not Available No t Available Trulicity 1.5 mg/0.5 mL subcutaneou s pen injector INJECT 0.5 ML (1.5 MG) SUBCUTANE OUSLY ONE TIME PER WEEK active Not Available Not Available No t Available Trulicity 0.75 mg/0.5 mL subcutaneou s pen injector INJECT 0.75 MG (0.5 ML) SUBCUTANE OUSLY WEEKLY active Not Available Not Available No t Available Basaglar KwikPen U-100 Insulin 100 unit/mL (3 mL) subcutaneou s INJECT 10 UNITS SUBCUTANE OUSLY EVERY MORNING active Not Available Not Available No t Available BD Ananya 2nd Gen Pen Needle 32 gauge x 5/32 USE DIRECTED 5 TIMES PER DAY active Not Available Not Available No t Available Vitals None Recorded Social History None recorded. Functional Status None recorded. Mental Status None recorded. Family History Nothing Reported. Medical History No medical history recorded. Past Encounters Encounter ID Performer Location Encounter Start Date Encounter Closed Date Diagnosis/Indication Diagnosis SNOMED-CT Code Diagnosis ICD10 Code Diagnosis IMO Codes Diagnosis Note [id number] [address] [facility] [address] [place] [address] 09/07/2025 10:48:46 09/07/2025 11:00:45 Type 2 diabetes mellitus with peripheral angiopathy 382771788 E11.51 7338027973 Ulcer of t oe due to type 2 diabetes mellitus 6392540623 96521 E11.621 L97.521 85389066 Cellulitis of toe of left foot 3225489221 L03.032 377601 Health Concerns Section Related Observation LastModified by Organization Detai ls LastModified Time None Recorded Concern Status LastModified by Organization Details LastModified Time None Recorded Advance Directives Directive None Recorded Payers Insurance Date Sequence Insurance Name Policy Number Policy Yang Covered Member ID Yang Member ID Guarantor Name 09/07/2025 2 [place] [id number] Allan York [id number] 09/07/2025 1 [place] [employer] Allan York [id number] Notes Date Note Type Note Provider Name and Address Organization Details Recorded Time 09/07/2025 text/html The patient is seen for follow up care concerning an ulceration and cellulitis of the fourth toe of the left toot. The patient reports compliance with his home going after care instructions. He is utilizing dilute betadine paint and a gauze pad every day. He has completed a course of oral antibiotics. He reports the area looks a little better. The patient denies any pus, odor,, drainage, selling, or bleeding in the area. He denies any nausea, vomiting, fever, chills or night sweats. Adin Grover DPM [address] [place], [address], [facility] 09/07/2025 11:22:43
--- OUTSIDE RECORDS SUMMARY | 2025-09-14 21:43 | XMS_ITS | Continuity of Care Document ---
Author Organization [facility], [facility] Address [address] [facility] [address] [place] [address] Assessment No assessment recorded. Plan of Treatment [...] monitor for signs or symptoms of infection. [email or web address] Not available 09/07/2025 11:22:27 Reason for Referral None Reported. Problems Name Problem SNOMED Code Status Onset Date Resolution Date Notes Provider Name and Address Organization Details Recorded Time Ulcer of toe of left foot Active 2024 Adin Grovre DPM [address] [facility] [place], [address], [facility] 13:27:17 Cellulitis of toe of right foot Active 2024 Adin Grover DPM [address] [facility] [place], [address], [facility] 13:29:45 Peripheral neuropathy due to type 2 diabetes mellitus 3821975563004 Active 2024 Adin Grover DPM [address] [facility] [place], [address], [facility] 11:20:09 Type 2 diabetes mellitus with peripheral angiopathy 022634637 Active 2024 Adin Grover DPM [address] [place], [address], [facility] 5 11:20:51 Ulcer of toe due to type 2 diabetes mellitus 5911892415572 01 Active 2024 Adin Grover DPM [address] [facility] [place], [address], [facility] 5 11:21:20 Cellulitis of toe of left foot Active 2024 Adin Grover DPM [address] [facility] [place], [address], [facility] 11:21:39 Problem Notes None [...] 2nd Gen Pen Needle 32 gauge x /32 USE DIRECTED 5 TIMES PER DAY active [...] [address] [facility] [address] [facility] [address] [place] [address] 09/07/2025 10:48:46 09/07/2025 11:00:45 Type 2 diabetes mellitus with peripheral angiopathy 224926058 E11.51 2745610372 Ulcer of t oe due to type 2 diabetes mellitus 4023966538 62702 E11.621 L97.521 50464061 Cellulitis of toe of left foot 0618337152 L03.032 321653 Health Concerns Section Related Observation LastModified by Organization Detai ls LastModified Time None Recorded Concern Status LastModified by Organization Details LastModified Time None Recorded Payers Encounter Date Sequence Insurance Name Policy Number Policy Yang Covered Member ID Yang Member ID Guarantor Name 09/07/2025 2 [place] [id number] Allan York [id number] 09/07/2025 1 [place] [employer] [facility] Allan York [id number] Notes Date Note Type Note Provider [...] or night sweats. Adin Grover DPM [address] [place], [address], [facility] 09/07/2025 11:22:43
== END 2025-09-14 13:44 | disposition home or self-care (01) ==
LOC: HO.XRAY 13:43
PROVIDERS: PCP Internal Medicine; Visit Provider Physician Assistant Medical
DX: E11.649 Type 2 diabetes mellitus with hypoglycemia without coma (principal); E11.65 Type 2 diabetes mellitus with hyperglycemia; E78.00 Pure hypercholesterolemia, unspecified; L03.116 Cellulitis of left lower limb; Z79.84 Long term (current) use of oral hypoglycemic drugs; Z79.85 Long-term (current) use of injectable non-insulin antidiabetic drugs; Z79.4 Long term (current) use of insulin; Z79.899 Other long term (current) drug therapy
CPT/HCPCS: 73630; 82947; 83036; 99212

== ENCOUNTER 2025-09-14 13:43 | Outpatient (AMB) | payer MEDICARE, SELFPAY ==
[2025-09-14 13:45] VITALS: BP 112/56; PULSE 74; O2SAT 99; BMI 24.1
--- NOTE | 2025-09-14 13:45 | MHC.OFFVIS ---
Vital Signs 09/14/25 13:45 Height 5 ft 2 in Weight 131 lb 9.855 oz BMI 24.1 BP 112/56 L Blood Pressure Location Lt brachial Position Sitting Pulse 74 Pulse Source Pulse Oximeter Pulse Oximetry (%) 99 Oxygen Delivery Method Room Air Intake Visit Reasons: Type II diabetes Intake Note: Patient present today to follow up on Type 2 Diabetes Mellitus. Last Diabetic Eye exam: 12/11/2024, [facility] Last Podiatry Visit: Last exam was last week 09/2025 and has upcoming appt for a toe infection. Random Glucose: 198 mg/dL HgA1c: 7.7% Dining Room Host Required: Yes Dining Room Host Language: Body Rolling Machine Tender Services: Dining Room Host Offered & Declined Accompanied by: Spouse Allergies atorvastatin Allergy (Unknown, Verified 09/14/25 14:00) Rash Sulfa (Sulfonamide Antibiotics) Allergy (Unknown, Verified 09/14/25 18:04) Unknown pencillin Allergy (Unknown, Uncoded 09/14/25 14:00) Rash HPI Comments Details: This is a 69-year-old male with a past medical history of type 2 diabetes, elevated TSH, lumbar radiculopathy, prostate cancer, COPD, hypertension and hyperlipidemia presenting for diabetic management. He is here with his . Declined collar setter. interprets. He was diagnosed with type 2 diabetes a few years ago. Complications: Neuropathy Hemoglobin A1c 7.7% today. Reviewed Ashley 2 data CGM active 51% Average glucose 146 High 18% Target range 82% 0% very high 0% hypoglycemia Current medications: Trulicity 1.5 mg weekly, metformin 500 mg twice a day Past medication: Previously on Basaglar. It was stopped once Trulicity was increased. Patient endorses decreased appetite on the higher dose of Trulicity. He would like to decrease it and go back on Basaglar. HLD treated with Rosuastatin. He follows with urology every 6 months right now for surveillance of prostate cancer in remission. Patient sees Podiatry at [place]. Reports being seen over the past month for infection for left toe infection. said she called and requested antibiotics, and he was placed on a 5 day course of azithromycin. He completed antibiotics, but over the last couple of days they note some increased redness of the toes and discomfort. They are still applying Betadine soaked gauze between the toes as directed by Podiatry. They have a follow up appointment on 09/21/2025. Denies fevers or chills. Endorses allergy to penicillin and sulfa. ROS: Constitutional: No fevers or chills. Eyes: Denies vision changes Respiratory: No shortness of breath Cardiovascular: No chest pain Neurologic: No headache, dizziness, syncope Endocrine: No cold or heat intolerance. No polyuria or polydipsia. Physical exam: Constitutional: Alert, in no distress. Neck: Supple, Full range of motion. No lymphadenopathy. No palpable thyroid masses. Respiratory: Clear to auscultation. Cardiovascular: S1 S2 regular. No murmurs. Feet: Dry, cracking skin on the left 4th and 5th toes, erythema extending to the left 4th and 5th MTP joints with very mild edema. This area is tender to palpation. There is no discharge. There are no ulcers. [facility] Medical History (Updated 09/14/25 @ 14:28 by JOSE Caraballo) Cellulitis of left foot Hypoglycemia unawareness associated with type 2 diabetes mellitus Controlled type 2 diabetes mellitus Low back pain Prostate cancer Abnormal PSA COPD (chronic obstructive pulmonary disease) Type 2 diabetes mellitus with hyperglycemia Hypertension Vitamin D deficiency Plantar fasciitis Hypercholesterolemia Dental abscess Surgical History H/O colonoscopy Hx of eye surgery History of bilateral cataract extraction History of hand surgery Family History Sister Breast cancer in situ Brother Alcohol abuse Prostate cancer CAD (coronary artery disease) Father Alcohol abuse Mother CAD (coronary artery disease) Brother Prostate cancer Brother Prostate cancer Social History Household Members: Spouse and Family Household Members Other:: , older daughter Housing: House Are you a primary animal caretaker supervisor to a significant other at home: No Do you presently have visiting nurse or other home services: No Alcohol intake: never Patient Tobacco Use Status: Former Tobacco user Tobacco use type: Cigarette Years Smoked: stopped 2017 e-Cigarette/Vaping Use: Never Used Second Hand Smoke Exposure: Yes service: No Current occupational status: employed Cognitive needs: No Hearing needs: No Vision needs: Yes Physical Exam Vital Signs: Last Vital Signs Pulse 74 09/14/25 13:45 BP 112/56 L 09/14/25 13:45 Pulse Ox 99 09/14/25 13:45 Oxygen Delivery Method Room Air 09/14/25 13:45 BMI result Body Mass Index 24.1 Results AMB Hemoglobin A1c AMB Hemoglobin A1c 7.7 % Last Edit by CECI Oden on 09/14/25 14:36 Results Reviewed Results Reviewed: Laboratory Last Values Glucose (Clinic) 198 mg/dL (60-115) H 09/14/25 14:02 Hgb A1c (Clinic) 7.7 % (4.0-6.0) H 09/14/25 14:04 Laboratory Tests 05/20/24 09/05/24 09/05/24 07:31 07:16 07:21 Creatinine 1.08 Estimated GFR > 60 Hemoglobin A1c % 6.9 H Triglycerides 73 Cholesterol 112 LDL Cholesterol, Calc 62 HDL Cholesterol 36 L Urine Creatinine 243.04 Urine Microalbumin 21.0 Microalb/Creat Ratio 8.6 Assessment & Plan Assessment & Plan (1) Controlled type 2 diabetes mellitus: Code(s): E11.9 - Type 2 diabetes mellitus without complications Category: Medical (2) Hypoglycemia unawareness associated with type 2 diabetes mellitus: Code(s): E11.649 - Type 2 diabetes mellitus with hypoglycemia without coma Category: Medical (3) Hypercholesterolemia: Code(s): E78.00 - Pure hypercholesterolemia, unspecified Category: Medical (4) Cellulitis of left foot: Code(s): L03.116 - Cellulitis of left lower limb Category: Medical Plan In summary this is a 69-year-old male with uncontrolled type 2 diabetes. Reduce Trulicity 0.75 mg weekly due to decreased appetite on higher dose. Restart Basaglar at 8 units nightly. Continue metformin 500 mg twice a day. Patient has hypoglycemia unawareness. We reviewed treatment of hypoglycemia. He has glucose tablets. CGM is medically necessary. Ashley 2 was discontinued. Advance patient to Ashley 3+. He will have lab work completed. Continue rosuvastatin for treatment of hyperlipidemia. Allergy to penicillin and sulfa. Start doxycycline 100 mg twice daily for 10 days. Take with food and a large glass of water. Reviewed potential side effects including rash especially with sun exposure and reflux/esophagitis. He can take Pepcid 20 mg twice daily as needed for stomach upset with the medication. Offered follow up here, but he has an appointment with his headline writer on 09/14/2025. He was instructed to go to the ER if he has rapidly advancing erythema, worsening swelling, severe pain, fevers or chills. Check x-ray of the foot. He would ultimately like to transfer podiatry care [place] [facility] [place] all of his specialists are affiliated with the same hospital. Referral placed. Follow up in 1 month. Orders: Orders AMB Hemoglobin A1c Today E11.65 - Type 2 diabetes mellitus with hyperglycemia, Z13.9 - Encounter for screening, unspecified, Z79.4 - termite control technician (current) use of insulin XR foot LT min 3V Today L03.116 - Cellulitis of left lower limb Referrals Podiatry Referral E11.65 - Type 2 diabetes mellitus with hyperglycemia, Z79.4 - termite control technician (current) use of insulin Medications: New doxycycline hyclate 100 mg PO BID 20 tabs 0RF dulaglutide (Trulicity) 0.75 mg (0.5 mL) subcut QWEEK 2 mL 5RF insulin glargine (Basaglar KwikPen U-100 Insulin) 8 units (0.08 mL) subcut QPM 15 mL 5RF blood-glucose,sample sawyer,cont (FreeStyle Ashley 3 [place]) Use daily to monitor blood glucose levels continuously. 1 ea 0RF blood-glucose sensor (FreeStyle Ashley 3 Plus Sensor device) Apply 1 new sensor every 15 days as directed to monitor blood glucose continuously. 2 ea 11RF Changed From pen needle, diabetic USE DIRECTED 5 TIMES PER DAY 150 ea 5RF E11.65 - Type 2 diabetes mellitus with hyperglycemia To pen needle, diabetic USE DIRECTED daily to administer insulin 100 ea 5RF E11.65 - Type 2 diabetes mellitus with hyperglycemia Discontinued flash glucose scanning reader (FreeStyle Ashley 2 [place]) Discontinued Reason: Doctor's Order As directed 1 ea 0RF E11.65 - Type 2 diabetes mellitus with hyperglycemia dulaglutide Discontinued Reason: Doctor's Order 1.5 mg (0.5 mL) subcut QWEEK 2 mL 3RF E11.65 - Type 2 diabetes mellitus with hyperglycemia, Z79.4 - halfway (current) use of insulin insulin lispro Discontinued Reason: Doctor's Order 150-200 1 unit 201-250 2 unit 251-300 3 units over 300 4 units subcutaneously use as directed; 30 days 6 mL 11RF E11.65 - Type 2 diabetes mellitus with hyperglycemia, Z79.4 - termite control technician (current) use of insulin Coding Level of Care Code Est Pt Level 4 (14421) Complex visit Add On G2211 Diagnoses Controlled type 2 diabetes mellitus E11.9 Hypoglycemia unawareness associated with type 2 diabetes mellitus E11.649 Hypercholesterolemia E78.00 Cellulitis of left foot L03.116
[2025-09-14 14:06] LABS: Glucose, Whole Blood 198 mg/dL (60-115)
--- OUTSIDE RECORDS SUMMARY | 2025-09-14 19:44 | XMS_ITS | Patient Health Record ---
Author Organization [facility] Address [address] [place] [address] Care Team Providers Care Hotel Dining Room Cashier Name Role Phone Matthew Dang MD Primary Care Provider Young Case Jr Unavailable Allergies Allergen (clinical drug ingredient) Drug/Non Drug Allergy documented on EMR Reaction Allergy Type Onset Date Status Penicillin Unknown Drug Allergy Active Reason For Referral No Information Medications Medication SIG (Take, Route, Frequency, Duration) Notes Start Date End Date Status Pioglitazone HCl 30 MG Tablet 1 tablet Orally Once a day A ctive Irbesartan 150 MG Tablet 1 tablet Orally Once a day Active Trulicity 0.75 MG/0.5ML Solution Pen-injector INJECT 0.75 MG (0.5 ML) SUBCUTANEOUSLY WEEKLY Subcutaneous; Duration: 28 Activ e metFORMIN HCl 500 MG Tablet 1 tablet with meals Orally Twice a day Active NovoLOG FlexPen 100 UNIT/ML Solution Pen-injector Subcutaneous; Duration: 62 A ctive Rosuvastatin Calcium 5 MG Tablet Oral; Duration: 90 Active BD Pen Needle Ananya 2nd Gen 32G X 4 MM Miscellaneous ; Duration: 30 A ctive MiraLax (colon prep) 17 GM/SCOOP Powder mixed with Gatorade or Crystal Light Orally begin at 5:00 p.m. the day before the procedure; Duration: 1 day 07/03/2023 Active Immunizations Vaccine Route Administration Date Status Comme nts Influenza Unknown 03/05/2019 Refused Influenza Unknown 06/26/2022 Administered Social History Tobacco Use: Social History Observation Description Date Details (start date - stop date) Former Smoker NA - NA Social History Tobacco Use: Social Info Question Answer Notes Tobacco Use/Smoking Patient is a former smoker How long has it been since you last smoked? 1-5 years Additional Details Category Social Info Options Details Miscellaneous: Marital status: Occupation: [employer] Problems Problem Type SNOMED Code ICD Code Onset Dates Problem Status W/U Status Risk Notes Problem Colon cancer screening (704818296) Colon cancer screening (Z12.11) Active confirmed Problem Pre-procedure evaluation check (791921701) Encounter for other preprocedural examination (Z01.818) Active confirmed Problem Altered bowel function (65076059) Change in bowel movement (R19.8) Active confirmed Plan Of Treatment Pending Test Test Name Order Date Hemoccult Cards (Screening) 03/06/2019 Future Test Test Name Order Date COLONOSCOPY 02/10/2015 COLONOSCOPY 07/03/2023 Insurance Providers Payer Name Payer Address Payer Phone Subscriber Number Group Number Insured Name Patient Relationship to Insured Coverage Start Date Coverage End Date MEDICARE OF [place] [address] [place] [address] [id number] DEVANG BORDEN Self - patient is the insured MEDEX ATTN CLAIMS [address] [place] [phone] [id number] DEVANG BORDEN Self - patient is the insured Medical (General) History Medical History History ICD Code Colonoscopy 02/18, diverticulosis, no lebron yps, ten-year followup hypertension diabetes mellitus COPD prostate cancer, radiation therapy and h ormone treatments Hyperlipidemia Surgical History Surgery Date(Month/Year) repair of traumatic left hand injury
== END 2025-09-14 14:44 | disposition home or self-care (01) ==
LOC: HO.ENCR 13:44
PROVIDERS: PCP Internal Medicine; Visit Provider Physician Assistant Medical
DX: E11.9 Type 2 diabetes mellitus without complications (principal); E11.649 Type 2 diabetes mellitus with hypoglycemia without coma; E78.00 Pure hypercholesterolemia, unspecified; L03.116 Cellulitis of left lower limb; Z13.9 Encounter for screening, unspecified; E11.65 Type 2 diabetes mellitus with hyperglycemia; Z79.4 Long term (current) use of insulin

== ENCOUNTER → 2025-09-14 15:26 | Outpatient (BNV) | payer MEDICARE, SELFPAY | PROVIDERS: PCP Internal Medicine; Visit Provider Radiology Diagnostic Radiology | DX: L03.116 Cellulitis of left lower limb (principal) | CPT/HCPCS: 73630 ==

== ENCOUNTER 2025-09-15 07:48 | Outpatient (REF) | payer MEDICARE, SELFPAY ==
[2025-09-15 08:17] LABS: MANUAL DIFF FLAG NO
[2025-09-15 08:30] LABS: Hematocrit 38.7 % (42.0-52.0); Hemoglobin 12.7 g/dl (14.0-18.0); Imm Gran Pct Auto 0.2 % (0.0-0.4); Mean Corpuscular HGB Conc 32.8 g/dl (31.0-36.0); Mean Corpuscular Hemoglobin 30.2 pg (27.0-33.0); Mean Corpuscular Volume 91.9 fL (80.0-98.0); Platelet Count 271 X10*3/uL (160-400); Red Blood Count 4.21 X10*6/uL (4.60-5.80); White Blood Count 5.7 X10*3/uL (4.8-10.8)
[2025-09-15 08:31] LABS: Imm Gran Abs Auto 0.01 X10*3/uL (0.00-0.03); Lymphocytes Absolute Auto 1.2 X10*3/uL (1.2-4.9); NRBC Abs Auto 0.000 X10*3/uL (0.0-0.012); NRBC Pct Auto 0.0 /100WBC (0.0-0.2); Reticulocytes Absolute 0.057 X10*6/uL (0.026-0.095)
[2025-09-15 08:35] LABS: Appearance Urine Clear; Glucose Urine UA Negative (Negative); PH 5.5 (5.0-9.0); Specific Gravity - Urine 1.015 (1.005-1.025)
[2025-09-15 09:24] LABS: Microalbum/Creatinine Ratio Ur 4.1 ug/mg cr (<30)
[2025-09-15 09:27] LABS: Alanine Aminotransferase 35 U/L (0-40); Albumin Level 4.7 g/dL (3.5-5.0); Alkaline Phosphatase 94 U/L (39-117); Anion Gap 11 (12-20); Aspartate Amino Transferase 27 U/L (5-37); Blood Urea Nitrogen 15 mg/dL (9-16); Calcium 9.6 mg/dL (8.4-10.2); Carbon Dioxide 29 mmol/L (22-29); Chloride 106 mmol/L (96-108); Cholesterol 100 mg/dL (<200); Estimated Glomerular Filt Rate > 60; HDL Cholesterol 41 mg/dL (>40); Iron 77 mcg/dL (45-160); Percent Iron Saturation 31 % (15-50); Potassium 4.4 mmol/L (3.3-5.1); Sodium 142 mmol/L (135-145); Total Iron Binding Capacity 251 mcg/dL (228-428); Total Protein 6.9 g/dL (6.5-8.0); Triglycerides 50 mg/dL (<150); Unsaturated Iron Binding 174 ug/dL
[2025-09-15 09:35] LABS: Cholesterol 99 mg/dL (<200); HDL Cholesterol 39 mg/dL (>40); Triglycerides 51 mg/dL (<150)
[2025-09-15 09:42] LABS: Ferritin 130 ng/mL (20-250); Free T4 (Free Thyroxine) 1.26 ng/dL (0.71-1.85)
[2025-09-15 09:43] LABS: Syphilis Screen Nonreactive (Nonreactive)
[2025-09-15 09:46] LABS: PSA,Total (Free>4and<10) < 0.10 ng/mL (0.00-4.00); Thyroid Stimulating Hormone 3.67 uIU/mL (0.32-4.0)
[2025-09-15 09:58] LABS: Folate 5.8 ng/mL (> or = 4.0); Vitamin B12 184 pg/mL (200-900)
== END 2025-09-15 07:49 | disposition home or self-care (01) ==
LOC: HO.LAB 07:48
PROVIDERS: PCP Internal Medicine; Visit Provider Physician Assistant Medical
DX: Z12.5 Encounter for screening for malignant neoplasm of prostate (principal); E11.65 Type 2 diabetes mellitus with hyperglycemia; I10 Essential (primary) hypertension; Z79.4 Long term (current) use of insulin; E78.5 Hyperlipidemia, unspecified; E78.00 Pure hypercholesterolemia, unspecified; R41.89 Other symptoms and signs involving cognitive functions and awareness; R30.0 Dysuria; Z91.89 Other specified personal risk factors, not elsewhere classified
CPT/HCPCS: 36415; 80053; 80061; 81003; 82043; 82570; 82607; 82728; 82746; 83036; 83540; 84153; 84252; 84439; 84443; 85025; 85045; 86780